=== PATIENT | female | born 1990 | race Caucasian/White ===

== ENCOUNTER 2020-09-08 19:43 | Emergency (ER) | payer OTHER, SELFPAY ==
--- NOTE | ~2020-09-08 | XR_ITS ---
EXAMINATION: XR elbow RT min 3V DATE: 09/08/2020 20:09 INDICATION: Right elbow dog bite. TECHNIQUE: 3 views of right elbow were obtained. COMPARISON: None. FINDINGS: Bone alignment is normal. No fracture. Joint spaces are well maintained. There is no elbow joint effusion. IMPRESSION: 1. No fracture or radiopaque foreign body. Reviewed, dictated and finalized at location A.
[2020-09-08 19:53] VITALS: BP 151/98; PULSE 97; RESP 16; TEMP 37; O2SAT 100
[2020-09-08] MEDS: HYDROcodone/acetaminophen (*CRX) 5-325 MG TABLET 1 TAB PO (20:02)
--- NOTE | 2020-09-08 20:59 | ED.GENADULT ---
HPI - General Adult General Chief complaint: Animal Bite Stated complaint: dog bite right arm Time Seen by Provider: 09/08/20 19:54 History of Present Illness HPI narrative: Patient is a 29-year-old female who presents to the ER with a dog bite to her right antecubital fossa. She is her 2 dogs that were fighting when she got bit. She reports her tetanus shot is up-to-date. She has full range of motion of her arm. She has no numbness or tingling. Has pain with flexion extension of her elbow. There is bruising developing. Related Data Allergies Allergy/AdvReac Type Severity Reaction Status Date / Time No Known Allergies Allergy Unknown Unverified 01/26/15 15:54 Review of Systems Musculoskeletal: Musculoskeletal: Denies arthralgias, Denies joint swelling and Denies muscle cramps Integumentary/Breasts: Comments: Bite wound to the right antecubital fossa/forearm. Neurologic: Denies focal weakness and Denies numbness PMFSH Past Medical History Medical History (Updated 09/08/20 @ 21:28 by Moose Arguelles MD) Asthma Depression Surgical History Surgical History (Updated 09/08/20 @ 21:00 by Moose Arguelles MD) No pertinent past surgical history Social History Social History (Updated 09/08/20 @ 21:00 by Moose Arguelles MD) Smoking status: Never smoker Gender identity (if verbalized by the patient): Female Exam Narrative: Exam Narrative: GENERAL: Well-appearing, well-nourished, and in no acute distress. HEAD: Normocephalic, atraumatic. CHEST: Clear to auscultation. No respiratory distress. HEART: Regular rate and rhythm. Normal peripheral pulses EXTREMITIES: Normal range of motion. Normal strength of right upper extremity. SKIN: Warm, dry, no rash. Bite wound right antecubital fossa medial aspect. 2 lacerations, one 1.5 cm in length and 0.5 cm in width, the other is 2cm x 1cm. NEURO: Alert and oriented x3. PSYCH: Normal mood and affect. Course Course Emergency Course: Wounds anesthetized irrigated. Will leave open due to nature of bite/puncture. Will give first dose antibiotic here. Discharge home. Vital Signs Vital signs: Vital Signs Temperature 98.6 F 09/08/20 19:53 Pulse Rate 97 09/08/20 19:53 Respiratory Rate 16 09/08/20 19:53 Blood Pressure 151/98 H 09/08/20 19:53 Pulse Oximetry 100 09/08/20 19:53 Temperature 98.6 F 09/08/20 19:53 Pulse Rate 97 09/08/20 19:53 Respiratory Rate 16 09/08/20 19:53 Blood Pressure 151/98 H 09/08/20 19:53 Pulse Oximetry 100 09/08/20 19:53 Medical Decision Making Vital Signs Vital Signs: Vital Signs Temperature 98.6 F 09/08/20 19:53 Pulse Rate 97 09/08/20 19:53 Respiratory Rate 16 09/08/20 19:53 Blood Pressure 151/98 H 09/08/20 19:53 Pulse Oximetry 100 09/08/20 19:53 Temperature 98.6 F 09/08/20 19:53 Pulse Rate 97 09/08/20 19:53 Respiratory Rate 16 09/08/20 19:53 Blood Pressure 151/98 H 09/08/20 19:53 Pulse Oximetry 100 09/08/20 19:53 Discharge Plan Discharge Clinical Impression: Dog bite Patient Disposition: Home, Self-Care Condition: Stable Instructions: Antibiotic Form, Animal Bite (ED) Additional Instructions: Take your full course of antibiotics. Return to the ER if your arm is red and hot, become swollen, your wound is draining pus, you have additional concerns. Prescriptions: New amoxicillin-pot clavulanate [Augmentin] 875-125 mg tablet 1 tablet PO Q12H Qty: 20 RF: 0 hydrocodone-acetaminophen 5-325 mg tablet 1 tablet PO Q6H PRN (Reason: pain) Qty: 7 RF: 0 Follow-up/Referrals: UNKNOWN,DOCTOR [Primary Care Provider] - 1 Week
[2020-09-08] MEDS: AMOXICILLIN/CLAVULANATE K 875-125 MG TAB 1 TABLET PO (21:39)
--- NOTE | 2020-09-08 21:39 | PC.NURSE ---
wound dressed with telfa and covered with coban. pt mani well.
[2020-09-08 21:49] VITALS: BP 141/85; PULSE 84; RESP 18; TEMP 36.5; O2SAT 98
== END 2020-09-08 21:50 | disposition home or self-care (01) ==
PROVIDERS: Emergency Provider Emergency Medicine
DX: S51.051A Open bite, right elbow, initial encounter (principal); W54.0XXA Bitten by dog, initial encounter; J45.909 Unspecified asthma, uncomplicated
CPT/HCPCS: 73080; 99283; A9270

== ENCOUNTER 2023-06-16 13:34 | Emergency (ER) | payer OTHER, SELFPAY ==
[2023-06-16 13:48] VITALS: BP 137/88; PULSE 54; RESP 16; TEMP 36.7; O2SAT 98
--- NOTE | 2023-06-16 13:55 | ED.NAVMDI ---
HPI - Nausea/Vomiting/Diarrhea General Chief complaint: Nausea/Vomiting/Diarrhea Stated complaint: throwing up Time Seen by Provider: 06/16/23 13:55 Source: patient Mode of arrival: ambulatory Limitations: no limitations History of Present Illness HPI Narrative: Katie is a 32-year-old female patient presenting to the clinic today with complaints of vomiting and diarrhea. She reports that she had 1 episode of diarrhea this morning. Started vomiting this morning. States that she has now dry heaving. Complaining of bilateral side pain due to the vomiting but otherwise no abdominal pain. Denies any blood in her stool. States that she vomited once yesterday due to postnasal drip. No fever or chills. Took Zofran at home without relief Related Data Home Medications Medication Instructions Recorded Confirmed albuterol sulfate 90 mcg/actuation 1 - 2 puff inhalation PRN PRN 06/16/23 06/16/23 aerosol inhaler Wheezing bupropion HCl 150 mg 24 hr tablet, 150 mg PO DAILY 06/16/23 06/16/23 extended release escitalopram oxalate 20 mg tablet 20 mg PO DAILY 06/16/23 06/16/23 methylphenidate HCl 20 mg 20 mg PO DAILY 06/16/23 06/16/23 tablet,extended release Allergies Allergy/AdvReac Type Severity Reaction Status Date / Time No Known Allergies Allergy Unknown Unverified 06/16/23 13:51 Review of Systems Review of Systems: Pertinent positives per HPI. Patient denies any fever, chills, rash, headache, visual changes, dizziness, cough, runny nose, sore throat, shortness of breath, chest pain, palpitations, constipation, or any urinary issues. [facility] Past Medical History Medical History Asthma Depression Surgical History Surgical History No pertinent past surgical history Social History Social History Smoking status: Never smoker Gender identity (if verbalized by the patient): Female Comments At the time of my signature, I reviewed and agree with the nursing past medical, surgical, social, and family history. There is no relevant family history pertinent to the patient complaint. Exam Narrative: General: Well-developed, well nourished, in no apparent distress. Head: Normocephalic, atraumatic. Cardio: Regular rate and rhythm, s1 and s2 normal, no murmur appreciated. Resp: Clear to auscultation bilaterally, no rhonchi, rales, wheezing or rubs. Abdomen: Soft, pliable, bowel sounds present in all quadrants, mild generalized tender to palpation, no organomegly, no CVAT tenderness. Course Course Emergency Course: Portions of this record may have been created with voice recognition software. Level of Care: Express Care Visit Vital Signs Vital signs: Vital Signs Temperature 36.7 C 06/16/23 13:48 Pulse Rate 54 L 06/16/23 13:48 Respiratory Rate 16 06/16/23 13:48 Blood Pressure 137/88 06/16/23 13:48 Pulse Oximetry 98 06/16/23 13:48 Oxygen Delivery Room Air 06/16/23 13:48 Temperature 36.7 C 06/16/23 13:48 Pulse Rate 54 L 06/16/23 13:48 Respiratory Rate 16 06/16/23 13:48 Blood Pressure 137/88 06/16/23 13:48 Pulse Oximetry 98 06/16/23 13:48 Oxygen Delivery Room Air 06/16/23 13:48 Vital signs reviewed MDM - Nausea/Vomiting/Diarrhea MDM Narrative Medical decision making narrative: At the time of visit patient is resting comfortably on the exam table. Patient appears to be nontoxic. Labs: COVID and influenza testing was negative in the clinic today. Urinalysis show 4+ ketones, trace of protein, and high specific gravity. No sign of infection. Medications given: Promethazine 50 mg IM Plan: Offered to send patient to the ED for further evaluation and IV fluids.-UA shows 4+ ketones, trace of protein, and a high specific gravity. Patient declined and stated she would like to go home
[2023-06-16] MEDS: PROMETHAZINE HCL 25 MG/ML AMPUL 50 MG IM (14:08)
== END 2023-06-16 14:58 | disposition home or self-care (01) ==
PROVIDERS: Emergency Provider Nurse Practitioner Family
DX: K52.9 Noninfective gastroenteritis and colitis, unspecified (principal); E86.0 Dehydration; J45.909 Unspecified asthma, uncomplicated; F32.A Depression, unspecified
CPT/HCPCS: 81003; 81025; 87426; 87804; 96372; 99213; G0463; J2550

== ENCOUNTER 2023-06-17 09:29 | Emergency (ER) | payer OTHER, SELFPAY ==
--- NOTE | ~2023-06-17 | CT_ITS ---
EXAMINATION: CT abdomen pelvis w con DATE: 06/17/2023 11:20 INDICATION: Abdominal pain. Nausea and vomiting. TECHNIQUE: Computed tomography (CT) of the abdomen and pelvis was performed with 100 L Omnipaque 350 intravenous contrast. Automated exposure control and iterative reconstruction technique were employed . The dose-length product was 1408.08 mGy-cm. COMPARISON: None. FINDINGS: The visualized portions of the lung bases are clear without pneumonia or pleural effusion. The heart size is normal. No pericardial effusion. The liver demonstrates focal steatosis adjacent to ligamentum teres. There are changes of cholecystectomy. The spleen, pancreas, adrenal glands, and ki dneys are normal. There is a 3.4 cm cyst in right ovary. There is diverticulosis of the colon without evidence of diverticulitis. The appendix is normal. There are no pathologically enlarged lymph nodes . There is no free intraperitoneal fluid. There is mild lumbar spondylosis. IMPRESSION: 1. 3.4 cm cyst in right ovary, likely a follicular cyst. Reviewed, dictated and finalized at location A. [employer]
--- NOTE | ~2023-06-17 | US_ITS ---
Pelvic ultrasound. Clinical History: Ovarian cyst Technique: Realtime transabdominal and transvaginal scanning of the pelvis was performed. Color flow Doppler and Doppler spectral analysis were performed. Findings: The uterus is anteverted. The endometrial stripe has a thickness of 3 mm. No focal mass is identified. The right ovary measures 3.7 x 3.2 x 4.1 cm. Simple right ovarian cyst measures 3.3 cm in diameter. V ascular flow present in the right ovary. The left ovary is not visualized. No significant left ovarian or adnexal mass is seen. There is no evidence of free fluid in the cul de sac. Impression: 3.3 cm simple right ovarian cyst. Reviewed, dictated and finalized at [facility]. BOSS Impression: 3.3 cm simple right ovarian cyst.
[2023-06-17 09:32] VITALS: BP 143/85; PULSE 66; RESP 14; TEMP 36.2; O2SAT 100
[2023-06-17 09:51] LABS: Basophils Percent Auto 0.2 % (0.2-1.2); Eosinophils Percent Auto 0.1 % (0-4.4); Hematocrit 40.3 % (37.0-47.0); Hemoglobin 13.2 g/dL (12.0-15.0); Immature Granulocyte Absolute 0.09 K/mm3 (0.00-0.031); Immature Granulocyte Percent A 0.5 % (0-0.5); Lymphocytes Absolute Auto 1.19 K/mm3 (0.9-3.2); Lymphocytes Percent Auto 6.1 % (18.3-44.2); Mean Corpuscular HGB Conc 32.8 g/dl (32-36); Mean Corpuscular Hemoglobin 28.1 pg (26-34); Mean Corpuscular Volume 85.7 fl (80-100); Mean Platelet Volume 9.4 fl (7.4-10.4); Monocytes Absolute Auto 0.7 K/mm3 (0.1-0.6); Monocytes Percent Auto 3.6 % (2.6-8.5); Neutrophils Absolute Auto 17.4 K/mm3 (1.3-6.7); Neutrophils Percent Auto 89.5 % (45.5-73.1); Platelet Count Result 362 k/mm3 (150-375); White Blood Count 19.4 K/mm3 (4.5-10.0)
[2023-06-17] MEDS: FAMOTIDINE 20 MG/2 ML VIAL IV PUSH (10:00)
[2023-06-17] MEDS: ONDANSETRON INJ 4 MG/2 ML VIAL IV PUSH (10:00)
[2023-06-17] MEDS: SODIUM CHLORIDE 0.9% IV 1,000 ML 999 ML IV CONT ×2 (10:01→11:32)
--- NOTE | 2023-06-17 10:02 | ED.NAVMDI ---
HPI - Nausea/Vomiting/Diarrhea General Chief complaint: Nausea/Vomiting/Diarrhea Stated complaint: Dehydration Time Seen by Provider: 06/17/23 09:34 Source: patient Mode of arrival: ambulatory Limitations: no limitations History of Present Illness HPI Narrative: This is a 32-year-old female that presents to the emergency department for vomiting and diarrhea. Ongoing since yesterday. She was seen at Urgent Care given a dose of nausea medication. She has continued to have persistent vomiting which prompted her to be seen today for possible dehydration. Reports some discomfort on the sides of her abdomen from vomiting. Denies fevers, or dysuria. Related Data Home Medications Medication Instructions Recorded Confirmed albuterol sulfate 90 mcg/actuation 1 - 2 puff inhalation PRN PRN 06/16/23 06/16/23 aerosol inhaler Wheezing bupropion HCl 150 mg 24 hr tablet, 150 mg PO DAILY 06/16/23 06/16/23 extended release escitalopram oxalate 20 mg tablet 20 mg PO DAILY 06/16/23 06/16/23 methylphenidate HCl 20 mg 20 mg PO DAILY 06/16/23 06/16/23 tablet,extended release Allergies Allergy/AdvReac Type Severity Reaction Status Date / Time No Known Allergies Allergy Unknown Unverified 06/16/23 13:51 Review of Systems Review of Systems: CONSTITUTIONAL: Denies fever GASTROINTESTINAL: Reports abdominal pain, nausea, vomiting, and diarrhea. GENITOURINARY: Denies dysuria All systems reviewed & are unremarkable except as noted in HPI and below PMFSH Past Medical History Medical History Asthma Depression Surgical History Surgical History No pertinent past surgical history Social History Social History Smoking status: Never smoker Gender identity (if verbalized by the patient): Female Exam Narrative: GENERAL: Well-appearing, well-nourished, and in no acute distress. HEAD: Normocephalic, atraumatic. EYES: EOMI. ENT: Nares clear, no rhinorrhea or epistaxis. Mucous membranes dry CHEST: Clear to auscultation. No respiratory distress. No wheezes rales or rhonchi HEART: Regular rate and rhythm. No murmur heard. Normal peripheral pulses. ABDOMEN: Soft, nontender, nondistended, normal active bowel sounds. EXTREMITIES: Normal range of motion. No edema. SKIN: Warm, dry, no rash. NEURO: No focal deficits. Alert and oriented x3. PSYCH: Normal mood and affect Course Course Emergency Course: Patient updated on workup and agrees with plan of care Vital Signs Vital signs: Vital Signs Temperature 97.1 F L 06/17/23 09:32 Pulse Rate 66 06/17/23 09:32 Respiratory Rate 14 06/17/23 09:32 Blood Pressure 143/85 H 06/17/23 09:32 Pulse Oximetry 100 06/17/23 09:32 Temperature 97.1 F L 06/17/23 09:32 Pulse Rate 64 06/17/23 15:45 Respiratory Rate 20 06/17/23 15:45 Blood Pressure 122/56 L 06/17/23 15:45 Pulse Oximetry 100 06/17/23 15:45 MDM - Nausea/Vomiting/Diarrhea MDM Narrative Medical decision making narrative: Patient presents to the emergency department for nausea and vomiting ongoing since yesterday. She is afebrile and nontoxic appearing. Her vitals are stable. CBC with leukocytosis to 19.4. Metabolic panel without concerning findings. Lipase is normal. UA with 11-20 white blood cells, also moderate squamous epithelial cells. Patient is asymptomatic. I believe this was a contaminated catch. This will be sent for culture. test is negative. CT abdomen and pelvis shows a right ovarian cyst. Pelvic ultrasound shows that this is a simple cyst. She has normal vascular flow in ovary. Patient and family were updated on her workup. She reports feeling well after IV fluid hydration and antiemetics. Reports he is ready for discharge. She is to follow up with primary provider. She was given warn
[2023-06-17 10:04] LABS: Alanine Aminotransferase 22 U/L (6-35); Albumin Level 4.4 g/dL (3.5-5.1); Alkaline Phosphatase 76 U/L (38-126); Anion Gap 10 mmol/L (8-16); Aspartate Amino Transferase 25 U/L (14-36); Bilirubin,Total 0.7 mg/dL (0.2-1.3); Blood Urea Nitrogen 13 mg/dL (7-17); Calcium 9.5 mg/dL (8.4-10.2); Carbon Dioxide 23 mmol/L (22-30); Chloride 106 mmol/L (98-107); Estimated Glomerular Filt Rate > 60; Glucose 125 mg/dL (65-110); Lipase 71 U/L (23-300); Potassium 3.7 mmol/L (3.4-5.0); Sodium 139 mmol/L (137-145)
[2023-06-17 10:09] LABS: Appearance Urine Cloudy (Clear); Bacteria Urine 2+ /hpf; Bilirubin Urine 2+ (Negative); Blood Urine Negative (Negative); Color Urine Dark Yellow (Yellow); Glucose Urine UA Negative (Negative); Ketones Urine 3+ mg/dL (Negative); Leukocyte Esterase Ur Trace LEU/UL (Negative); Need Manual Microscopic Reviewed; Nitrate Urine Negative (Negative); Non Pathogenic Casts 0-2; Protein Urine 2+ mg/dL (Negative); Squamous Epithelial Cell Urine Moderate /hpf (Few)
[2023-06-17 10:10] LABS: Add Urine Microscopic? YES; RBC Urine 0-2 /hpf (0-2); Specific Grav Ur 1.038 (1.001-1.035)
[2023-06-17] MEDS: KETOROLAC 15 MG/ML VIAL (*BKC) IV PUSH (11:32)
[2023-06-17] MEDS: METOCLOPRAMIDE HCL INJ 10 MG/2 ML VIAL IV PUSH (11:33)
[2023-06-17] MEDS: diphenhydrAMINE HCl INJ 50 MG/ML VIAL 25 MG IV PUSH (11:35)
[2023-06-17 15:45] VITALS: BP 122/56; PULSE 64; RESP 20; O2SAT 100
== END 2023-06-17 16:20 | disposition home or self-care (01) ==
PROVIDERS: Emergency Provider Physician Assistant
DX: N83.291 Other ovarian cyst, right side (principal); R82.81 Pyuria; R11.2 Nausea with vomiting, unspecified; J45.909 Unspecified asthma, uncomplicated; F32.A Depression, unspecified
CPT/HCPCS: 36415; 74177; 76830; 76856; 80053; 81001; 81025; 83690; 85025; 87086; 96361; 96374; 96375; 99284; J1200; J1885; J2405; J2765; J7030; Q9967

== ENCOUNTER 2024-06-28 17:20 | Emergency (ER) | payer OTHER, SELFPAY ==
--- NOTE | ~2024-06-28 | XR_ITS ---
EXAMINATION: XR chest 1V portable DATE: 06/28/2024 20:46 INDICATION: Upper respiratory infection. TECHNIQUE: A single frontal view of the chest was obtained. COMPARISON: CT abdomen and pelvis 06/17/2023 FINDINGS: There is no pneumonia, pleural effusion, or pneumothorax. The heart size is normal. IMPRESSION: 1. No acute cardiopulmonary disease. Reviewed, dictated and finalized at location A. [employer]
[2024-06-28 17:23] VITALS: BP 167/99; PULSE 61; RESP 20; TEMP 37.3; O2SAT 99
--- OUTSIDE RECORDS SUMMARY | 2024-06-28 17:23 | XMS_ITS ---
Author Organization Unknown Medications Medication Instructions Effective Dates (start - stop) Status amoxicillin 875 MG / clavula marcos 125 MG Oral Tablet - Completed 8 HR methylphenidate hydroch loride 20 MG Extended Release Oral Tablet - Co mpleted 8 HR methylphenidate hydroch loride 20 MG Extended Release Oral Tablet - Co mpleted 8 HR methylphenidate hydroch loride 20 MG Extended Release Oral Tablet - Co mpleted [id number] 200 ACTUAT albuter ol 0.09 MG/ACTUAT Metered Dose Inhaler - Completed methylphenidate hydrochlorid e 5 MG Oral Tablet - Completed methylphenidate hydrochlorid e 5 MG Oral Tablet - Completed 8 HR methylphenidate hydroch loride 20 MG Extended Release Oral Tablet - Co mpleted alprazolam 0.25 MG Oral Tablet 2023-04-07 T00:00:00Z - Completed 24 HR bupropion hydrochlorid e 150 MG Extended Release Oral Tablet - Compl eted benzonatate 100 MG Oral Capsule 9T00:00:00Z - Completed 24 HR bupropion hydrochlorid e 150 MG Extended Release Oral Tablet - Compl eted 8 HR methylphenidate hydroch loride 20 MG Extended Release Oral Tablet - Co mpleted 24 HR bupropion hydrochlorid e 300 MG Extended Release Oral Tablet - Compl eted 8 HR methylphenidate hydroch loride 20 MG Extended Release Oral Tablet - Co mpleted - - Compl eted escitalopram 20 MG Oral Tablet 2023-06-10 T00:00:00Z - Completed escitalopram 20 MG Oral Tablet 2023-07-11 T00:00:00Z - Completed escitalopram 20 MG Oral Tablet 2022-12-12 T00:00:00Z - Completed escitalopram 20 MG Oral Tablet 2023-03-13 T00:00:00Z - Completed - - Compl eted 30/70 Release 24 HR methylphenidate hydrochloride 20 MG Extended Release Oral Capsule - Comp leted 24 HR bupropion hydrochlorid e 150 MG Extended Release Oral Tablet - Compl eted 8 HR methylphenidate hydroch loride 20 MG Extended Release Oral Tablet - Co mpleted ondansetron 4 MG Disintegrat ing Oral Tablet - Completed methylphenidate hydrochlorid e 5 MG Oral Tablet - Completed ondansetron 4 MG Disintegrat ing Oral Tablet - Completed molnupiravir 200 MG Oral Capsule 00:00:00Z - Completed alprazolam 0.25 MG Oral Tablet 2022-12-21 T00:00:00Z - Completed escitalopram 20 MG Oral Tablet 2023-07-11 T00:00:00Z - Completed - - Compl eted - - Compl eted alprazolam 0.25 MG Oral Tablet 2023-09-03 T00:00:00Z - Completed ondansetron 4 MG Oral Tablet [id number] 0:00:00Z - Completed [id number] 200 ACTUAT albuter ol 0.09 MG/ACTUAT Metered Dose Inhaler - Completed methylphenidate hydrochlorid e 5 MG Oral Tablet - Completed 8 HR methylphenidate hydroch loride 20 MG Extended Release Oral Tablet - Co mpleted escitalopram 20 MG Oral Tablet 2023-11-08 T00:00:00Z - Completed 8 HR methylphenidate hydroch loride 20 MG Extended Release Oral Tablet - Co mpleted ondansetron 4 MG Disintegrat ing Oral Tablet - Completed methylphenidate hydrochlorid e 5 MG Oral Tablet - Completed ondansetron 4 MG Disintegrat ing Oral Tablet - Completed [id number] 200 ACTUAT albuter ol 0.09 MG/ACTUAT Metered Dose Inhaler - Completed Patient Care team information Name Category Status Period Participants - - Proposed period not known -
--- OUTSIDE RECORDS SUMMARY | 2024-06-28 17:23 | XMS_ITS | Clinical Summary ---
Author Organization [facility] Address [address] [place] [address] Phone Care Team Providers Care Set Up Machinist Name Role Phone LIANG GILLESPIE DO Primary Care Provider [phone] Reason for Visit and Chief Complaint The Chief Complaint is: Patient is here for a medication check Problems Includes: Problems addressed during this encounter and other active Problems Current Visit Onset Date Resolved Date Provider Jennifer story Status Anxiety Disorder Mixed 07/28/2022 LIANG HASSAN DO Active Last Documented On 3 8:10PM ; [facility] 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 05/05/2020 LIANG GILLESPIE DO Active Last Documented On 0 1:48PM ; [facility] Past Visits Onset Date Resolved Date Provider Condition Status Adhd, 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 LIANG GILLESPIE DO Active Last Documented On 2 10:05PM ; [facility] 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 note free text]. - Last Documented On 08/26/2023 7:44AM ; [facility] Continue present medications, call for refills. She was advised to follow a healthy diet. She was advised to drink plenty of water and stay hydrated. - Last Documented On 08/26/2023 7:44AM ; [facility] Assessments Includes: Assessments from this encounter Findings - Moderate recurrent major depression with anxiety [F41.9 - Anxiety disorder, unspecified] - Last Documented On 08/26/2023 7:44AM ; [facility] - Mixed anxiety disorder [F41.3 - Other mixed anxiety disorders] - Last Documented On 08/26/2023 7:44AM ; [facility] Medical Equipment - Implanted Devices Includes: Current Devices No Medical Equipment Recorded Medications Includes: Medications discussed during this encounter and other current Medications Current Medications (continue as prescribed) Escitalopram Oxalate 20 MG Oral Tablet 11/02/2023 Provider: LIANG GILLESPIE DO Diagnosis: Major depressive disorder, single episode, unspecified TAKE 1 TABLET BY MOUTH EVERY DAY Last Documented On 11/02/2023 8:41AM By LIANG GILLESPIE DO ; [facility] buPROPion HCl ER (XL) 300 MG Oral Tablet Extended Release 24 Hour 10/25/2023 Provider: LIANG GILLESPIE DO Diagnosis: Anxiety disorder , unspecified 1 TABLET DAILY Last Documented On 10/25/2023 12:36PM By LIANG GILLESPIE DO ; [facility] Methylphenidate HCl ER 20 MG Oral Tablet Extended Release 10/05/2023 Provider: LIANG BORJA DO Diagnosis: Attn-defct hyper activity disorder, predom inattentive type One tablet daily am Last Documented On 10/05/2023 8:25AM By LIANG GILLESPIE DO ; [facility] Ondansetron 4 MG Oral Tablet Disintegrating 09/17/2023 Provider: LIANG GILLESPIE DO Diagnosis: Nausea 1 every 4 - 6 hours as needed nausea Last Documented On 09/17/2023 6:46PM By LIANG GILLESPIE DO ; [facility] ALPRAZolam 0.25 MG Oral Tablet 08/31/2023 Provider: TIFF DEAL Diagnosis: Anxiety disorder , unspecified TAKE 1/4-1 TABLET BY MOUTH E VERY 8-12 HOURS NEEDED FOR ANXIETY. MUST LAST AT LEAST 30 DAYS Last Documented On 1:24PM By Tiff SHELTON ; [facility] buPROPion HCl ER (XL) 150 MG Oral Tablet Extended Release 24 Hour 07/11/2023 Provider: LIANG GILLESPIE DO Diagnosis: Anxiety disorder , unspecified TAKE 1 TABLET BY MOUTH EVERY DAY IN THE MORNING Last Documented On 07/11/2023 9:37AM By LIANG GILLESPIE DO ; [facility] Albuterol Sulfate HFA 108 (9 0 Base) MCG/ACT Inhalation Aerosol Solution 07/11/2023 Provider: LIANG MCFARLANE DO Diagnosis: COVID-19 INHALE 1-2 PUFFS INTO THE STACIA NGS EVERY 4-12 HRS NEEDED FOR WHEEZE Last Documented On 07/11/2023 9:37AM By LIANG GILLESPIE DO ; [facility] Methylphenidate HCl 5 MG Ora l Tablet 04/11/2023 Provider: LIANG GILLESPIE DO Diagnosis: Attn-defct hyper activity disorder, predom inattentive type 1 pm work days Last Documented On 04/11/2023 10:34AM By LIANG GILLESPIE DO ; [facility] Triamcinolone Acetonide 0.1% External Cream 11/29/2022 Provider: TIFF TURNER [facility] Diagnosis: Dermatitis, unsp ecified apply to affected area 2 omega es daily. do not use for longer than 14 days in a row. Last Documented On 10:38AM By Tiff Turner [facility] ; [facility] Nexplanon 68 MG Subcutaneous Implant 01/06/2022 Prov ider: Diagnosis: Last Documented On 03/07/2022 2:42PM By Lilliana GALINDO ; [facility] Flonase 50 MCG/ACT Nasal Suspension 04/09/2020 Provi harris: Diagnosis: Last Documented On 04/09/2020 10:25AM By Concepción GALINDO ; [facility] ZyrTEC Allergy 10 MG Oral Tablet 04/09/2020 Provider : Diagnosis: Last Documented On 04/09/2020 10:25AM By Concepción GALINDO ; [facility] EpiPen 2-Cory 0.3MG/0.3ML Injection Solution Auto-injec tor 12/19/2017 Provider: Diagnosis: Given to her by the ER Last Documented On 12/19/2017 10:12AM By PETER GALINDO ; [facility] Past Medications on file Benzonatate 100 MG Oral Capsule 04/13/2023 - 3 Provider: LIANG GILLESPIE DO Diagnosis: COVID-19 as directed 1-2 q 6 hours prn cough Last Documented On 04/13/2023 2:28PM By LIANG GILLESPIE DO ; [facility] Lagevrio 200 MG Oral Capsule 03/19/2023 - 03/24/2023 P rovider: LIANG GILLESPIE DO Diagnosis: COVID-19 4 po bid x 5 Last Documented On 03/19/2023 12:59PM By LIANG GILLESPIE DO ; [facility] Medications Administered Includes: Administered Medications from this encounter No Administered Medications Recorded Vital Signs Includes: Vital Signs from this encounter Vital Name 08/24/2023 10:54A Blood Pressure Sitting L 122/80 Pulse Rate-Sitting (bpm) 71 Respiration Rate (breaths/min) 20 Height (in) 61.5 Weight (lb) 244 Body Mass Index 45.4 Body Surface Area (m2) 2.1 Oxygen Saturation (%) 97 Last Documented: On 08/24/2023 10:56A M ; [facility] Results Includes: Results discussed during this encounter No Results Recorded For Specified Dates History of Present Illness Includes: History of Present Illness from this encounter NILSA GARCÍA is a 32 year old female. - Allergy list reviewed - Medication list reviewed - No systemic symptoms - Not feeling tired or poorly - No head symptoms - No neck symptoms - No eye symptoms - No otolaryngeal symptoms - No cardiovascular symptoms - No pulmonary symptoms - No gastrointestinal symptoms - No genitourinary symptoms - No musculoskeletal symptoms - No decrease in concentrating ability - No anxiety - No depression - No initial insomnia - No middle-night awakening - Not thinking about suicide - No homicidal thoughts - No skin symptoms The patient is a pleasant 32-year-old female who presents today for a 1-month follow-up visit. She is feeling fine today. She reports good moods and sound sleep patterns. With respect to her energy, it is better than prior. She has been taking bupropion XL 300 mg once daily and escitalopram 20 mg once daily and has been tolerating them well. She denies any side effects from medicines. She denies having thoughts of hurting herself or others. She denies any crying spells or angry spells. For ADHD, she has been taking Ritalin 20 mg once daily at AM and 5 mg at PM on workdays. She reports that the current dose of medication is helping her focus. She denies any vision changes, headaches, dizziness, or falls. She denies any chest pain, palpitations, shortness of breath, changes in bowel movements such as black or tarry stools, or bladder problems. Social History Description Last Updated 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 08/24/2023 Last Documented On 4 7:44AM ; [facility] Not recovering from substance abuse 08/05 Last Documented On 4 7:44AM ; [facility] Tobacco non-user 07/25/2022 Last Documented On 4 10:53AM ; [facility] Using marijuana 02/08/2021 Last Documented On 4 10:53AM ; [facility] Smoking Status Unknown Procedures and Surgical History Includes: Procedures from this encounter Procedures Code Diagnosis Performing Provider Service L ocation Service Date dietary regime Last Documented On 4 11:08AM ; [facility] plan of care reviewed and agreed to Last Documented On 4 11:08AM ; [facility] plan of care reviewed and agreed to by t he patient Last Documented On 4 11:08AM ; [facility] use of tobacco assessment performed 1000F Last Documented On 4 10:54AM ; [facility] review of medications documented 1160F Last Documented On 4 10:54AM ; [facility] Pt encouraged to be compliant with curre nt treatment Last Documented On 4 11:08AM ; [facility] Discussed Exercise Last Documented On 4 11:08AM ; [facility] instructed to monitor salt intake Last Documented On 4 11:08AM ; [facility] Reviewed Blood Pressures Last Documented On 4 11:08AM ; [facility] Medical History Includes: Medical History addressed during this encounter Description Last Updated LMP: nexplanon 07/25/2022 Last Documented On 4 10:53AM ; [facility] Surgery 2000- KNEE SURGERY 11/23/2008 Last Documented On 4 10:53AM ; [facility] Family History Includes: Family History addressed during this encounter Description Last Updated Family history of asthma 09/13/2021 Last Documented On 4 10:53AM ; [facility] Family history of diabetes mellitus 09/04 Last Documented On 4 10:53AM ; [facility] Family history of systemic hypertension 09/13/2021 Last Documented On 4 10:53AM ; [facility] Family history reviewed - unchanged sinc e last visit 01/03/2019 Last Documented On 4 10:53AM ; [facility] Father HIGH BLOOD PRESSURE 11/23/2008 Last Documented On 4 10:53AM ; [facility] Review of Systems Includes: Review of Systems from this encounter Systemic: No fever, no night sweats, and no edema. Head: No headache. Neck: No neck pain. Eyes: No vision problems. Otolaryngeal: No nasal discharge and no sore throat. Cardiovascular: No chest pain or discomfort and no palpitations. Pulmonary: No dyspnea and not expressed as feeling short of breath. Gastrointestinal: No nausea, no vomiting, and no melena. Genitourinary: No dysuria. Musculoskeletal: No localized joint pain. Neurological: No dizziness, no lightheadedness, and no memory lapses or loss. Psychological: No high irritability, no emotional hypersensitivity, and no sleep disturbances. No change in thought patterns and no lack of balance between leisure activities and work. Skin: No rash. Mental Status Includes: Mental Status from this encounter Description Cognitive functioning was no rmal Oriented to time, place, and person Thought processes were not i mpaired No memory lapses or loss No anxiety No homicidal thoughts Not thinking about suicide The thought content revealed no impairment Moderate recurrent major dep ression with anxiety Functional Status Includes: Functional Status from this encounter No Functional Status Recorded Physical Exam Includes: Physical Exam from this encounter Allergies Includes: Active Allergies No Known Allergies Encounters Encounter Provider Location Date Check-In Time Check-Out Time Diagnosis CHECK UP LIANG GILLESPIE DO [facility] 08/24/19 24 10:39AM 11:08AM Anxiety Disorder Mixed,Major Depression Recurrent Moderate with Anxiety Insurance Includes: Active Insurance Policies Plan Name Member ID Group # Subscriber Relationship Effect palmer Dates 1 - [employer] [id number] BRENDA GARCÍA Self 11/04/2020 - Unknown Clinical Notes Includes: Clinical Notes from this encounter * Progress note Date Encounter Last Documented by 08/24/2023 CHECK UP Last documented on 08/26/2023; 7:44 AM, LIAGN GILLESPIE DO; [facility] Active Problems & Conditions - 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 History of Present Illness BRENDA GARCÍA is a 32 year old female. - Allergy list reviewed - Medication list reviewed - No systemic symptoms - Not feeling tired or poorly - No head symptoms - No neck symptoms - No eye symptoms - No otolaryngeal symptoms - No cardiovascular symptoms - No pulmonary symptoms - No gastrointestinal symptoms - No genitourinary symptoms - No musculoskeletal symptoms - No decrease in concentrating ability - No anxiety - No depression - No initial insomnia - No middle-night awakening - Not thinking about suicide - No homicidal thoughts - No skin symptoms The patient is a pleasant 32-year-old female who presents today for a 1-month follow-up visit. She is feeling fine today. She reports good moods and sound sleep patterns. With respect to her energy, it is better than prior. She has been taking bupropion XL 300 mg once daily and escitalopram 20 mg once daily and has been tolerating them well. She denies any side effects from medicines. She denies having thoughts of hurting herself or others. She denies any crying spells or angry spells. For ADHD, she has been taking Ritalin 20 mg once daily at AM and 5 mg at PM on workdays. She reports that the current dose of medication is helping her focus. She denies any vision changes, headaches, dizziness, or falls. She denies any chest pain, palpitations, shortness of breath, changes in bowel movements such as black or tarry stools, or bladder problems. Current Medication - Albuterol Sulfate HFA 108 (90 Base) MCG/ACT Inhalation Aerosol Solution INHALE 1-2 PUFFS INTO THE LUNGS EVERY 4-12 HRS NEEDED FOR WHEEZE, 30 days, 2 refills - ALPRAZolam 0.25 MG Oral Tablet TAKE 1/4-1 TABLET BY MOUTH EVERY 8-12 HOURS NEEDED FOR ANXIETY. MUST LAST AT LEAST 30 DAYS, 30 days, 0 refills - buPROPion HCl ER (XL) 150 MG Oral Tablet Extended Release 24 Hour TAKE 1 TABLET BY MOUTH EVERY DAY IN THE MORNING, 30 days, 0 refills - buPROPion HCl ER (XL) 300 MG Oral Tablet Extended Release 24 Hour One tablet daily, 90 days, 0 refills - EpiPen 2-Cory 0.3MG/0.3ML Injection Solution Auto-injector 0.3 MG/0.3ML as directed Given to her by the ER, 0 days, 0 refills - Escitalopram Oxalate 20 MG Oral Tablet TAKE 1 TABLET BY MOUTH EVERY DAY, 90 days, 0 refills - Flonase 50 MCG/ACT Nasal Suspension 0 days, 0 refills - Methylphenidate HCl 5 MG Oral Tablet 1 pm work days, 30 days, 0 refills - Methylphenidate HCl ER 20 MG Oral Tablet Extended Release One tablet daily am, 30 days, 0 refills - Nexplanon 68 MG Subcutaneous Implant 0 days, 0 refills - Ondansetron 4 MG Oral Tablet Disintegrating 1 every 4 - 6 hours as needed nausea, 30 days, 0 refills - Triamcinolone Acetonide 0.1% External Cream apply to affected area 2 times daily. do not use for longer than 14 days in a row., 14 days, 0 refills - ZyrTEC Allergy 10 MG Oral Tablet 0 days, 0 refills Past Medical/Surgical History Reported: Surgery 2000- KNEE SURGERY. LMP: nexplanon. Social History Tobacco use: Tobacco non-user. Alcohol: 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. Drug Use: Using marijuana. Not recovering from substance abuse. Allergies - No Known Allergies Family History Father HIGH BLOOD PRESSURE Family history reviewed - unchanged since last visit Systemic hypertension Asthma Diabetes mellitus Review Of Systems Systemic: No fever, no night sweats, and no edema. Head: No headache. Neck: No neck pain. Eyes: No vision problems. Otolaryngeal: No nasal discharge and no sore throat. Cardiovascular: No chest pain or discomfort and no palpitations. Pulmonary: No dyspnea and not expressed as feeling short of breath. Gastrointestinal: No nausea, no vomiting, and no melena. Genitourinary: No dysuria. Musculoskeletal: No localized joint pain. Neurological: No dizziness, no lightheadedness, and no memory lapses or loss. Psychological: No high irritability, no emotional hypersensitivity, and no sleep disturbances. No change in thought patterns and no lack of balance between leisure activities and work. Skin: No rash. Physical Findings - Vitals taken 08/24/2023 10:54 am BP-Sitting L 122/80 mmHg Pulse Rate-Sitting 71 bpm Respiration Rate 20 per min Height 61.5 in Weight 244 lbs Body Mass Index 45.4 kg/m2 Oxygen Saturation 97 % General Appearance: - Well-appearing. - Alert. - In no acute distress. Neck: Suppleness: - Neck demonstrated no decrease in suppleness. Thyroid: - Showed no abnormalities. Cervical Mass: - No cervical mass was seen. Eyes: General/bilateral: Extraocular Movements: - Normal. Pupils: - PERRLA. Optic Disc: - Normal. Retina: - Fundoscopic exam was normal. Ears: General/bilateral: External Auditory Canal: - External auditory meatus normal. Tympanic Membrane: - Normal. Nose: General/bilateral: Discharge: - No nasal discharge. Sinus Tenderness: - No sinus tenderness. Pharynx: Oropharynx: - Normal. Chest: - No thoracic asymmetry was noted. Lungs: - Normal. - Normal breath sounds/voice sounds. - No wheezing was heard. - No rhonchi were heard. - No rales/crackles were heard. Cardiovascular: Heart Rate And Rhythm: - Normal. Heart Sounds: - Normal. Murmurs: - No murmurs were heard. Carotid Arteries: - No bruit in the carotid artery. Arterial Pulses: - No bruit in the femoral artery. Edema: - Not present. Back: - Normal. - No costovertebral angle tenderness. Abdomen: Auscultation: - Bowel sounds were normal. - A bruit was not heard in the abdomen. Palpation: - Abdominal non-tender. - No mass was palpated in the abdomen. Liver: - Not enlarged. Spleen: - Not enlarged. Musculoskeletal System: General/bilateral: - Musculoskeletal system: normal. Cervical Spine: General/bilateral: - Cervical lymph nodes were not tender on palpation. Lower Leg: General/bilateral: - A positive Saskia's sign was not elicited. - Garth Sign was negative. Neurological: - Cognitive functioning was normal. - Oriented to time, place, and person. Cranial Nerves: - Normal. Sensation: - No sensory exam abnormalities were noted. Motor: - No tremor was seen. Reflexes: - Deep tendon reflexes were normal. Psychiatric: Appearance: - Normal. Demonstrated Behavior: - Behavior demonstrated no abnormalities. Attitude: - Not abnormal. Mood: - Euthymic. Affect: - Normal. Thought Processes: - Not impaired. Thought Content: - Revealed no impairment. Skin: - General appearance was normal. - Color and pigmentation were normal. - No skin lesions. - No rash. Assessment - Moderate recurrent major depression with anxiety [F41.9 - Anxiety disorder, unspecified] - Mixed anxiety disorder [F41.3 - Other mixed anxiety disorders] Therapy - Reviewed Blood Pressures. - Dietary regime modified electrolyte levels low in sodium content instructed to monitor salt intake. - Discussed Exercise. - Pt encouraged to be compliant with current treatment. - Plan of care reviewed and agreed to by the patient. Counseling/Education - Reduce caffeine intake Discussed discussion [Use for free text]. >20 MIN> 50% Her blood pressure has been within normal limits. Her weight is up 3 pounds since the last visit. Plan StartCited - Other Follow-up FOLLOW UP IN 3 MONTHS. EndCited - Continue current medication - Follow-up visit - Patient to call if problem develops PLAN [Use for s.o.a.p. note free text]. Continue present medications, call for refills. She was advised to follow a healthy diet. She was advised to drink plenty of water and stay hydrated. Other Johann Blandon, scribing the following service on behalf of Dr. Liang Gillespie, D.O. Practice Management Use of tobacco assessment performed Review of medications documented.
--- OUTSIDE RECORDS SUMMARY | 2024-06-28 17:24 | XMS_ITS ---
Care Plan - [facility] Created on: June 28, 2024 BRENDA GARCÍA : 1990 Sex: Female Author Organization [facility] Address [address] [place] [address] Phone Care Team Providers Care Summer Sessions Director Name Role Phone LIANG ALMANZA DO Primary Care Provider [phone]
--- OUTSIDE RECORDS SUMMARY | 2024-06-28 17:24 | XMS_ITS | Referral Summary ---
Author Organization [facility] [place] [address] Address [address] [place] [address] Care Team Providers Care Field Sales Engineer Name Role Phone Ravindra Gillespie DO Primary Care Provider [phone] Allergies Active Allergy Reactions Criticality Noted Date Comments Adhesive Hives Medium 03/08/2020 Pt has had anaphylactic reaction in the past Medications fluticasone propionate (FLONASE) 50 mcg/actuation nasal spray Administer 1 spray into each nostril daily Active albuterol HFA (ProAir HFA) 90 mcg/actuation inhalerIndications :Bronchitis Inhale 2 puffs every 4 (four) hours as needed for wheezing or shortness of breath 8.5 g 0 Active etonogestreL (NEXPLANON) 68 mg implantIndications : Contraception 1 each (68 mg total) by subdermal route 9 Active ALPRAZolam (XANAX) 0.25 mg tablet Take 0.5 tablets (0.125 mg total) by mouth 4 Active buPROPion XL (WELLBUTRIN XL) 300 mg 24 hr tablet Take 1 tablet (300 mg total) by mouth daily 4 Active buPROPion SR (Wellbutrin SR) 200 mg 12 hr tablet Active escitalopram (LEXAPRO) 20 mg tablet Take 1 tablet (20 mg total) by mouth 4 Active ketorolac (TORADOL) 10 mg tablet TAKE 1 TABLET BY MOUTH 4 TIMES A DAY NEEDED FOR PAIN X 5 DAYS 4 Active methylphenidate ER (METADATE ER) 20 mg CR tablet Take 1 tablet (20 mg total) by mouth 4 Active methylphenidate CD (METADATE CD) 20 mg CR capsule Active methylphenidate HCl (RITALIN) 5 mg tablet Take 1 tablet (5 mg total) by mouth daily 4 Active ondansetron ODT (ZOFRAN-ODT) 4 mg disintegrating tablet Take 1 tablet (4 mg total) by mouth 4 Active benzonatate (TESSALON) 200 mg capsuleIndications :Acute non-recurrent pansinusitis Take 1 capsule (200 mg total) by mouth 3 (three) times a day as needed for cough 30 capsule 4 Active Active Problems Problem Noted Date Diagnosed Date Vomiting 09/28/2023 Acute frontal sinusitis 05/09/2015 Overview (08/10/2016): Acute frontal sinusitis, recurrence not specified Resolved Problems Problem Noted Date Diagnosed Date Resolved Date Gallstones 12/24/2019 03/15/2020 Overview (12/24/2019): Added automatically from request for surgery [id number] Social History Tobacco Use Types Packs/Day Years Used Date Smoking Tobacco: Never Cigarettes Smokeless Tobacco: Never Tobacco Cessation:Counseling Given: Not Answered Alcohol Use Standard Drinks/Week Comments Yes 0 (1 standard drink = 0.6 oz pur e alcohol) Rarely Comments No Sex and Gender Information Value Date Recorded Sex Assigned at Not on file 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 Gender Identity Not on file Sexual Orientation Not on file Last Filed Vital Signs Vital Sign Reading Time Taken Comments Blood Pressure 120/90 01/17/2024 2:53 PM CDT Pulse 104 01/17/2024 2:53 PM CDT Temperature 36.8 C (98.3 F) 01/17/2024 2:53 PM CDT Respiratory Rate 22 01/17/2024 2:53 PM CDT Oxygen Saturation 98% 01/17/2024 2:53 PM CDT Inhaled Oxygen Concentration - - Weight 108.9 kg (240 lb) 01/17/2024 2:53 PM CDT Height 157.5 cm (5' 2 ) 01/17/2024 2:53 PM CDT Body Mass Index 43.9 01/17/2024 2:53 PM CDT Plan of Treatment Not on file Insurance [facility] [id number] Member Subscriber Plan / Payer (Ef fective 2023-Present) Name:Katie Hinds Abiel Member ID:[id number] Relation to Subscriber:Self Name:Katie Hinds Subscriber ID:[id number] Payer ID:[id number] Type:[employer] HMO/PPO Address: [address] [place] [phone] Care Teams Field Sales Engineer Relationship Specialty Start Date End Date Ravindra Gillespie DO [address] [place] [id number] PCP - General Family Practice 03/15/20
--- OUTSIDE RECORDS SUMMARY | 2024-06-28 17:24 | XMS_ITS | Continuity of Care Document ---
Author Organization [facility]. If a dditional information is needed, contact Health Information Management at [phone] Address [address] [place] [phone] Phone Care Team Providers Care Husbandry Technician Name Role Phone Unavailable Unavailable Unavailable Unavailable Unavailable Unavailable Unavailable Unavailable Unavailable Unavailable Unavailable Unavailable Unavailable Unavailable Unavailable Unavailable Unavailable Unavailable Problems Vomiting Onset:28-Sep-2023 Katy Francisco NP Allergies and Adverse Reactions No Known Drug Allergies(Wilber rgy) Onset: 28-Sep-2023 Medications ondansetron 2 MG/ML Injectable Solution [Zofran];4 MILLIGRAM X1ED Quantity:1 Zully Solis DO Start:26-Fji-2886Ici:28-Sep-2023 Comments:[id number] sodium chloride 9 MG/ML Injectable Solution;[id number] Rileyambrocio Solis DO Start:89-Zpa-8153Klq:28-Sep-2023 Comments:[id number] haloperidol 5 MG/ML Injectable Solution;2 MILLIGRAM X1ED Quantity:1 Zully Solis DO Start:54-Lhu-7429Zbk:28-Sep-2023 Comments:[id number] Administration Instructions: Max INITIAL IV dose: 5 mg ED/ICU2 mg all other areas Max MAINTENANCE IV dose: 20 mg ED/ICU5 mg all other areas ondansetron 4 MG Disintegrating Oral Tablet;4 MILLIGRAM PO Q8HR Start:28-Sep-2023 Comments:4 MG PO Q8HR escitalopram 20 MG Oral Tablet;20 MILLIGRAM PO DAILY Start:28-Sep-2023 Comments:20 MG PO DAILY WELLBUTRIN XL;300 MILLIGRAM PO DAILY Start:28-Sep-2023 Comments:300 MG PO DAILY 8 HR methylphenidate hydrochloride 20 MG Extended Release Oral Tablet;20 MILLIGRAM PO DAILY Start:28-Sep-2023 Comments:20 MG PO DAILY ALPRAZolam 0.25 MG Oral Tablet;0.125 MILLIGRAM PO BEDTIME Start:28-Sep-2023 Comments:0.125 MG PO BEDTIME [id number] 200 ACTUAT albuterol 0.09 MG/ACTUAT Metered Dose Inhaler [Proventil];2 PUFF INH Q4H PRN Start:28-Sep-2023 Comments:2 PUFF INH Q4H PRN As Needed for WHEEZING Social History Smoking Status Tobacco smoking consumption unknown Recorded: Results CBC W/AUTO DIFFERENTIAL Ordered On:28-Sep-2023 09:23 BASOPHIL #0.110*3/uL(Normal) R danielito:010*3/uL-0.210*3/uL BASOPHIL %0.4%(Normal) Range:0%- 1.1% EOSINOPHIL #0.010*3/uL(Normal) R danielito:010*3/uL-0.710*3/uL EOSINOPHIL %0.0%(Normal) Range:0 %-5.5% GRANULOCYTE #11.910*3/uL(High) R danielito:1.410*3/uL-6.510*3/uL GRANULOCYTE %93.7%(High) Range:4 0%-74.8% CETQWUHFKV01.7%(Low) Range:34.9% -44.1% XVZYWUQWVQ43.9g/dL(Normal) Range :11.6g/dL-15.4g/dL LYMPHOCYTE #0.510*3/uL(Low) Rang e:1.210*3/uL-3.410*3/uL LYMPHOCYTE %3.9%(Low) Range:17%- 48.8% MEAN CELL HGB29.0pg(Normal) Rang e:26.9pg-33.7pg MEAN CELL HGB GRZXLDQHMOYSA22.3g/dL(Normal) Range:33.3g/dL-35.3g/dL MEAN CELL MTIGLO69.4fL(Normal) R danielito:79.2fL-97.2fL MONOCYTE #0.310*3/uL(Normal) Ran ge:0.110*3/uL-0.610*3/uL MONOCYTE %2.0%(Low) Range:4.6%-1 1.8% PLATELET ZZOUE98096*3/uL(Normal) Range:30703*3/uL-43914*3/uL RED BLOOD CELL4.12{M/mm3}(Normal) Range:3.78{M/mm3}-5.1{M/mm3} RED CELL DISTRIBUTIO N WIDTH13.5%(Normal) Range:11.2%-14.4% WHITE BLOOD CELL12.710*3/uL(High) Range:3.710*3/uL-10.110*3/uL COMPREHENSIVE METABOLIC PANEL Ordered On:28-Sep-2023 09:34 ALBUMIN/GLOBULIN RATIO1.4(Normal) Range:0.7-1.5 ALBUMIN4.6g/dL(Normal) Range:3.5 g/dL-5g/dL ALKALINE PHOSPHATASE CESBB87Z/L(Normal) Range:38U/L-126U/L SGPT/ALT31U(Normal) Range:13U-69 U SGOT/AST28U/L(Normal) Range:15U/ L-46U/L TOTAL BILIRUBIN0.9mg/dL(Normal) Range:0.1mg/dL-1.1mg/dL BUN/CREATININE RATIO12(Normal) R danielito:10-20 BLOOD UREA PJGTLCXO6hi/dL(Normal) Range:7mg/dL-20mg/dL CALCIUM9.6mg/dL(Normal) Range:8. 4mg/dL-10.2mg/dL CORRECTED CALCIUM9.1mg/dL Commen ts:Calcium Corrected for Albumin. LDBYHQNX821agiw/L(Normal) Range: 96mmol/L-107mmol/L CARBON MCVFANV10ydwf/L(Low) Rang e:22mmol/L-32mmol/L CREATININE0.73mg/dL(Normal) Rang e:0.7mg/dL-1.5mg/dL ANION GAP10.0meq/L(Normal) Range :3meq/L-11meq/L GFR RACE RTKJHBWXNZB002 Range:>= 60 Comments:The eGFR is calculated using the 202 CKD-EPI Cr equation,which includes serum Cr, age, and sex but does not include arace coefficient. The National Kidney Foundation recommendsthis formula for calculation eGFR in adults. GFR will notcalculate if sex is unknown or patient age is <18 years.Ref range: >/=60 mL/min/1.73 m2 GLOBULIN3.2g/dL(Normal) Range:2. 5g/dL-4.5g/dL NTYZEEM929xv/dL(High) Range:74mg /dL-106mg/dL POTASSIUM3.8{MMOL}(Normal) Range :3.5{MMOL}-5.1{MMOL} IJNMBF799nslc/L(Normal) Range:13 7mmol/L-145mmol/L CORRECTED IGCTSS370diss/L(Normal) Range:135mmol/L-146mmol/L TOTAL PROTEIN7.7g/dL(Normal) Ran ge:6.3g/dL-8.2g/dL LIPASE Ordered On:28-Sep-2023 09:34 PXSQUD96D/L(Normal) Range:23U/ L-300U/L MAGNESIUM Ordered On:28-Sep-2023 09:34 MAGNESIUM1.76mg/dL(Normal) Ran ge:1.6mg/dL-2.3mg/dL URINALYSIS DIPSTICK Ordered On:28-Sep-2023 09:29 UA APPEARANCEHAZY Range:CLEAR UA BILIRUBIN DIPSTICKNegative Ra nge:NEGATIVE UA BLOOD QAFYRQVW118/ul(Abnormal) Range:NEGATIVE UA COLORYELLOW Range:YELLOW UA GLUCOSE DIPSTICK1 00 (1+)(Abnormal) Range:NORMAL UA LEUKOCYTE ESTERAS E DIPSTICKneg Range:NEGATIVE UA NITRITE DIPSTICKNEG Range:NEG ATIVE UA PH DIPSTICK6.0(Normal) Range: 5-8.5 UA PROTEIN DIPSTICK3 0 (1+)(Abnormal) Range:NEGATIVE UA SPECIFIC GRAVITY1.020(Normal) Range:1.001-1.035 UA KETONE WLAICUOW822 (4+) Range :NEGATIVE UA UROBILINOGEN DIPSTICKnorm Ran ge:NORM-1mg/dL UA MICROSCOPIC * Ordered On:28-Sep-2023 09:29 UA XSX25-70(Abnormal) Range:0- 0 UA WBC6-10/[HPF](Abnormal) Range :0/[HPF]-1/[HPF] UA BACTERIAFEW/[HPF](Abnormal) R danielito:NEGATIVE /HPF UA EPITHELIAL CELLSMANY Range:NE GATIVE UA MUCUSFEW/[LPF](Abnormal) Rang e:NEGATIVE /LPF HCG URINE QUALITATIVE. Ordered On:28-Sep-2023 09:24 HCG URINE QUALITATIVE.NEGATIVE Range:NEGATIVE 1 Ordered On:28-Sep-2023 Comments: Indication for Culture: Sx,w/abn UA 1st24h&WBC>10 29-Sep-2023 11:32 URINE CULTURE Vital Signs 28-Sep-2023 08:37 TEMP UBUADIE53.7c Comments:36.7 Pulse79 Comments:79 Respiratory Rate16 Comments:16 O2 SAT98% Comments:98 BP Jtqjiamm534ta[Hg] Comments:14 6 BP Nhkrcoghh84be[Hg] Comments:78 Height5.7829243[ft_us] Comments: 5 Vgdpfi085if Comments:110.000 28-Sep-2023 08:37 BMI44.3kg/m2 Comments:44.3 Encounters Emergency Encounter Reason:PUI-VOMITING Encounter Diagnosis:Cannabis use, unspecified, uncomplicated,Nausea with vomiting, unspecified 28-Sep-2023 08:40Op13-Lef-1921 11:30 [facility] Discharge Disposition:Discharged to home or self care (routine discharge) Katy Francisco NP-28-Sep-2023 [facility] ([facility])EMERGENCY PROVIDER REPORTREPORT#:[id number] REPORT STATUS: SignedDATE:09/28/23 TIME: 0848PATIENT: BRENDA GARCÍA UNIT #: [id number]#: [id number] ROOM/BED: XEDAGE: 33 SEX: F PCP PHYS: No Primary or Family PhysicianSERVICE AUTHOR: Carol Burns NPREP SRV REP SRV TM:0848* ALL edits or amendments must be made on the electronic/computer document * See AddendumCAROL BURNS NP 09/28/23 0848:HPI-HeadacheFree Text HPI NotesFree Text HPI NotesThe patient is a 33-year-old female with a history of marijuana use andcholecystectomy presenting to the emergency department with a chief complaint ofvomiting times 12 hours. The patient states that she previously had been toldshe may have cyclic vomiting syndrome. She denies any abdominal pain. Shedenies any fever, chills, diarrhea, dizziness, chest pain, shortness of breath.Her last marijuana use was yesterday.GeneralInitial Greet Date/Time 09/28/23 0833PresentationChief Complaint nausea, vomitingSudden in Onset? NoPain/Sev: Onset Pain level 0 out of 10Risk-HeadacheRisk StratificationStroke Risk factors reviewed, Oral contraceptive)( Subarachnoid Hemorrhage Risk factors reviewed)( IC Mass Lesion Risk factors reviewedNIH Stroke Scale NIH Stroke Scale Response Value NIHSS Applicable? Yes 0 Level of Consciousness Alert and responsive (0) 0 Ask Month Age 1 question right (1) 1 Blink Eyes/Squeeze Hands Performs both tasks (0) 0 Horizontal EOM NL side/side eye mvmt (0) 0 Visual Virk No visual loss (0) 0 Facial Palsy Normal symmetry (0) 0 Right Arm Motor Drift (10s) No drift 10 sec (0) 0 Left Arm Motor Drift (10s) No drift 10 sec (0) 0 Right Leg Motor Drift (5s) No drift 5 sec (0) 0 Left Leg Motor Drift (5s) No drift 5 sec (0) 0 Limb Ataxia FNF/Heel-Garza No ataxia (0) 0 Sensation (Arms/Legs/Face) No sensory loss (0) 0 Language Aphasia No aphasia, normal (0) 0 Dysarthria No dysarthria (0) 0 Extinction/Inattention No extinct/inattent (0) 0 Total 1Review of SystemsROS StatementsAll systems rev neg except as marked.Free Text ROS NotesFree Text ROS NotesDizziness, headachePast Medical History - AdultStated Complaint PUI-VOMITINGAllergiesCoded Allergies:No Known Drug Allergies (09/28/23)Home MedicationsReported MedicationsONDANSETRON ODT (ZOFRAN ODT) 4 MG PO B5PSSCFXFGbsml (XANAX) 0.125 MG PO BEDTIMEMETHYLPHENIDATE ER (METADATE ER) 20 MG PO DAILYESCITALOPRAM (LEXAPRO) 20 MG PO DAILYbuPROPion HCL 24HR XL (WELLBUTRIN XL) 300 MG PO DAILYALBUTEROL HFA 2 PUFF INH Q4H PRN PRN WHEEZINGReview of Nursing Notes Rev avail, and agreeSmoking status for patients 13 years old or older: Unknown,if ever smokedPhysical ExamVital SignsVital SignsFirst Documented: Result Date Time Pulse Ox 98 09/27 0834 B/P 146/78 09/27 0834 B/P Mean 100 09/27 08 Temp 98.1 09/28 0734 Pulse 79 09/27 0834 Resp 16 09/27 0834Last Documented: Result Date Time Pulse Ox 98 09/27 0834 B/P 146/78 09/27 0834 B/P Mean 100 09/27 0834 Temp 98.1 09/27 0834 Pulse 79 09/27 0834 Resp 16 09/27 0834Review of Vital Signs ReviewedFocused PEGeneral/Const General/Const Awake, AlertMS Head Head NormocephalicEyes Eyes PERRL, EOMI, No photophobia, Conjunctiva NL, Temporal arteries NLEars/Nose/Throat Ears/Nose/Throat Airway patent, Mucous membranes moist, Pharynx NL, No sinustendernessMS Neck Neck Supple, No meningismus, Full range of motion, No swelling, Non-tender,No massesResp/Chest Respiratory/Chest Breath sounds NL, Breath sounds = bilat, No respiratorydistress, No rales, No rhonchi, No wheezingCardiovascular Cardiovascular Heart rate NL, Regular rhythm, Heart sounds NL, Peripheralcirculation NLAbdomen/GI Abdomen/GI Soft, Non-tender, No guarding, No reboundSkin Skin Color NL, No rash, Warm, Dry, Turgor NLNeurologic Neurologic Oriented X3, Speech NL, No motor deficits, No sensory deficits, CNII - XII intact, Cerebellar NLPsychiatric Psychiatric Affect NL, Mood NL, Cognitive function NL, Thought content NLInterpretation DiagnosticsLab Results InterpretationResultsLaboratory Tests09/28/23 0910:[Embedded Image Not Available]Laboratory Tests: 09/27 09/27 09/27 0910 0900 0900 Chemistry Sodium (137 - 145 MMOL/L) 138 Corrected Sodium (135 - 146 MMOL/L) 138 Potassium (3.5 - 5.1 MMOL) 3.8 Chloride (96 - 107 MMOL/L) 107 Carbon Dioxide (22 - 32 MMOL/L) 21 L Anion Gap (3.0 - 11.0 mEq/L) 10.0 BUN (7 - 20 mg/dL) 9 Creatinine (0.7 - 1.5 mg/dL) 0.73 Est GFR (CKD-EPI 2020) (>=60) 110 BUN/Creatinine Ratio (10 - 20) 12 Glucose (74 - 106 MG/DL) 127 H Calcium (8.4 - 10.2 mg/dL) 9.6 Corrected Calcium (mg/dL) 9.1 Magnesium (1.6 - 2.3 mg/dL) 1.76 Total Bilirubin (0.1 - 1.1 mg/dL) 0.9 AST (15 - 46 Units/L) 28 ALT (13 - 69 Units) 31 Alkaline Phosphatase (38 - 126 Units/L) 86 Total Protein (6.3 - 8.2 gm/dL) 7.7 Albumin (3.5 - 5.0 gm/dL) 4.6 Globulin (2.5 - 4.5 GM/DL) 3.2 Albumin/Globulin Ratio (0.7 - 1.5) 1.4 Lipase (23 - 300 Units/L) 54 Hematology WBC (3.7 - 10.1 K/mm3) 12.7 H RBC (3.78 - 5.10 M/mm3) 4.12 Hgb (11.6 - 15.4 gm/dl) 11.9 Hct (34.9 - 44.1 %) 34.7 L MCV (79.2 - 97.2 fL) 84.4 MCH (26.9 - 33.7 pg) 29.0 MCHC (33.3 - 35.3 g/dl) 34.3 RDW (11.2 - 14.4 %) 13.5 Plt Count (156 - 352 K/mm3) 312 Neut % (Auto) (40.0 - 74.8 %) 93.7 H Lymph % (Auto) (17.0 - 48.8 %) 3.9 L [place] % (Auto) (4.6 - 11.8 %) 2.0 L Eos % (Auto) (0.0 - 5.5 %) 0.0 Baso % (Auto) (0.0 - 1.1 %) 0.4 Neut # (Auto) (1.4 - 6.5 K/mm3) 11.9 H Lymph # (Auto) (1.2 - 3.4 k/mm3) 0.5 L [place] # (Auto) (0.1 - 0.6 K/mm3) 0.3 Eos # (Auto) (0.0 - 0.7 K/mm3) 0.0 Baso # (Auto) (0.0 - 0.2 K/mm3) 0.1 Urines Urine Color (YELLOW) YELLOW Urine Appearance (CLEAR) HAZY Urine pH (5.0 - 8.5) 6.0 Ur Specific [place] (1.001 - 1.035) 1.020 Urine Protein (NEGATIVE) 30 (1+) H Urine Ketones (NEGATIVE) 150 (4+) Urine Blood (NEGATIVE) 250/ul H Urine Nitrite (NEGATIVE) NEG Urine Bilirubin (NEGATIVE) Negative Urine Urobilinogen (NORM - 1mg/dL) norm Ur Leukocyte Esterase (NEGATIVE) neg Urine RBC (0 - 1 RBC/HPF) 26-50 H Urine WBC (0 - 1 wbc/hpf) 6-10 H Ur Epithelial Cells (NEGATIVE) MANY Urine Bacteria (NEGATIVE /HPF) FEW H Urine Mucus (NEGATIVE /LPF) FEW H Urine Glucose (NORMAL) 100 (1+) H Urine HCG, Qual (NEGATIVE) NEGATIVEMicrobiology: Date/Time Procedure - Status Source Growth 09/27 0900 Urine Culture - RECD URINERe-Evaluation MDMFree Text MDM NotesFree Text MDM NotesChart reviewed.Patient presents with vomiting x 12 hours. Patient attempted to take Zofranhowever she states she vomited this medication up. Patient does report chronicmarijuana use. She states she previously was told she may have cyclic vomitingsyndrome. She states she was previously told that marijuana use may beassociated with the vomiting. She states she was previously provided amedication that fixed everything and made me very tired but she is unsure whatthis medication was.CBC, CMP, lipase, Mag, urinalysis, test ordered.Patient medicated with 1 L normal saline and IV Haldol as well as IV zofran.Laboratory workup unremarkable. Patient urinalysis is negative for infection.There is blood noted to be in urinalysis however patient is currently on hermenstrual cycle.Patient had resolution of her nausea and vomiting after medication. It islikely she may have been experiencing cannabis hyperemesis. I discussed thiswith the patient.Was able to tolerate p.o. fluids prior to discharge.Strict return to the ED precautions were given to the patient. She reportedunderstanding and had no further questions at the time of discharge.)( Re-Evaluation/Progress #1)( Re-Eval Status ResolvedED CourseMedication(s) OrderedMedication(s) Ordered:Central Nervous System Agents Sig/Cyril Start time Last Medication Dose Route Stop Time Status Admin Haloperidol Lactate 2 MG X1ED ONE 09/27 0900 DC 09/27 IV 09/27 0901 0912Electrolytic, Caloric, And Pavan Sig/Cyril Start time Last Medication Dose Route Stop Time Status Admin Sodium Chloride 1,000 ML BOLUS ONE 09/27 0900 DC 09/27 IV 09/27 0959 0912Gastrointestinal Drugs Sig/Cyril Start time Last Medication Dose Route Stop Time Status Admin Ondansetron HCl 4 MG X1ED ONE 09/27 1000 DC 09/27 IV 09/27 1001 1026Differential Diagnosis)( Differential Diagnosis gastroenteritis, UTI, marijuana hyperemesis, viralsyndrome, hernia, bowel obstruction, appendicitis, gastritis, among othersPatient Discharge DepartureVital Signs/ConditionVital SignsFirst Documented: Result Date Time Pulse Ox 98 09/27 0834 B/P 146/78 09/27 0834 B/P Mean 100 09/27 0834 Temp 98.1 09/27 0834 Pulse 79 09/27 0834 Resp 16 09/27 0834Last Documented: Result Date Time Pulse Ox 98 09/27 0834 B/P 146/78 / 0834 B/P Mean 100 / 0834 Temp 98.1 / 0834 Pulse 79 09/27 0834 Resp 16 09/27 0834All vital signs available at the time of this entry have been reviewed.Condition StableClinical ImpressionClinical ImpressionPrimary Impression: VomitingTime of Impression 1124Disposition DecisionDischarge )( Discharged to Home Yes )( Time 1124 )( Date 09/28/23Discharge/Care PlanCounseled Regarding Diagnosis, Lab results, Need for follow-up, When to returnto ED(Auto) PrescriptionsCurrent Visit Scriptsondansetron (ZOFRAN) 4 MG PO Q6H PRN PRN NAUSEA AND VOMITING ondansetron (ZOFRAN) 4 MG PO Q6H PRN PRN NAUSEA AND VOMITING #20 TABPatient Instructions ED Diet Vomiting DiarrheaAdditional InstructionsPlease return with inability to keep down food or fluids, fever, dizziness,chest pain, shortness of breath.ALLEY RILEY DO 09/29/23 1123:Patient Discharge DepartureDischarge/Care PlanReferralsProvider Referral: No Primary or Family PhysicianSupervising Physician Note MidLv Saw Pt Alone I was available for consultation as needed at all times during the patient'svisit in the emergency department. at 1535 at 1123Addendum 1: 09/30/23 1631 by Amy Frost AddendumAddmkumPatient's urine culture positive for corynebacterium coyleae - commonly acontaminate per labor commissioner, and sensitivies not performed due to this. I calledand spoke with patient, and she states that she is feeling a lot better, nofurther vomiting. She reports no abdominal pain, and denies urinary symptoms.I discussed with her urine culture results. As no symptoms, and feelingimproved, more likely this is a contaminate, and I recommended she follow upwith primary care for recheck of urine with a culture. Patient agrees with thisplan - all questions answered, including reasons for prompt return as needed. at 1631 at 1700Addendum 2: 09/30/23 1701 by Alley Riley DOPatient AddendumAddendum at 1701RPT #: [id number] OF REPORT Plan of Treatment Please return with inability to keep down food or fluids, fever, dizziness, chest pain, shortness of breath. Future Tests Future scheduled test information is unavailable Pending Tests Test Name Ordered Date Scheduled Date URINE CULTURE September 28, 2023 9:00am Future Visits Future appointment information is unavailable Referrals to Other Providers Reason for Referral Referral Start Date Provider Provider Contact Information Provider Address No Primary or Family Physician Work Phone: +1. Future Procedures Future procedure information is unavailable Future Medications Future medication information is unavailable Patient Instructions ED Diet Vomiting Diarrhea Assessments Diagnosis Onset Date Resolution Status Vomiting Active
--- OUTSIDE RECORDS SUMMARY | 2024-06-28 17:24 | XMS_ITS | Clinical Summary ---
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 Gender Identity Not on file Sexual Orientation Not on file Plan of Treatment Health Maintenance Due Date Last Done Comments Hepatitis C Virus (HCV) Screening 1988 TdaP Immunization 1988 Hepatitis B Immunization (1 of 3 - 19+ 3-dose series) 09/26/2007 Pap Smear 2009 Cervical Cancer Screening (CCS) 2018 HPV/Cotest 2018 Influenza Immunization (#1) 2024 SARS-COV-2 Immunization ( season) 2024 05/02/2021, 07/09/2020 Respiratory Syncytial Virus (RSV) Immunization (Adult) (1 - 1-dose 75+ series) 09/26/2063 Meningococcal Immunization (ACWY) Aged Out No longer eligible b ased on patient's age to complete this topic Pneumococcal Immunization Combined Aged Out No longer eligible b ased on patient's age to complete this topic Rotavirus Immunization Aged Out No lo nger eligible based on patient's age to complete this topic
--- OUTSIDE RECORDS SUMMARY | 2024-06-28 17:24 | XMS_ITS | Clinical Summary ---
Author Organization [facility] [place] [address] [place] [address] [address] [place] [address] Care Team Providers Care Stockroom Coordinator Name Role Phone Ravindra Gillespie DO Primary Care Provider [phone] Allergies Active Allergy Reactions Criticality Noted Date [...] (12/24/2019): Added automatically from request for surgery [id number] Surgical History Surgery Date Site/Laterality Comments KNEE ARTHROSCOPY Right displaced patella with 2 screws CHOLECYSTECTOMY Medical History Medical History Date Comments Hx Other Medical Right Knee Surg johnnie Asthma PONV (postoperative nausea and vomiting) Anxiety Depression Family History Medical History Relation Name Comments Diabetes Father Wally Hinds Diabetes mellit us; Hypertension Father Wally Hinds Hypertension; Lung cancer Paternal Grandfather Relation Name Status Comments Father Wally Hinds Paternal Grandfather Social History Tobacco Use Types Packs/Day Years Used Date Smoking Tobacco: Never Cigarettes Smokeless Tobacco: Never Tobacco Cessation:Counseling Given: Not Answered Alcohol Use Standard Drinks/Week Comments Yes 0 (1 standard drink = 0.6 oz pur e alcohol) Rarely Comments No Sex and Gender Information Value Date Recorded Sex Assigned at Not on file 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 Gender Identity Not on file Sexual Orientation Not on file Obstetrics History Last Filed Vital Signs Vital Sign Reading [...] 01/17/2024 2:53 PM CDT Plan of Treatment Health Maintenance Due Date Last Done Comments Cervical Cancer Screening 1988 Depression Screening 1988 Hepatitis C Screening 1988 DTaP/Tdap/Td Vaccine (1 - Tdap) 09/26/1999 Varicella Vaccines (1 of 2 - 13+ 2-dose series) 2001 Hepatitis B Screening 2006 Regular Well Visit/Exam 18-64 2006 Covid-19 Vaccine (2023-2 5 season) 2024 03/08/2022, 05/02/2021, 07/09/2020 Influenza Vaccine (#1) 2024 03/07/2022 HPV Vaccines Aged Out No longer eligi ble based on patient's age to complete this topic Pneumococcal vaccine <65 Aged Out No longer eligible based on patient's age to complete this topic Insurance Omnigy [facility] [facility] [id number] Care Teams Stockroom Coordinator Relationship Specialty Start Date End Date Ravindra Gillespie DO [address] [place] [place] [id number] PCP - General Family Practice 03/15/20
--- OUTSIDE RECORDS SUMMARY | 2024-06-28 17:24 | XMS_ITS ---
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 LIANG ALMANZA DO Active Last Documented On 2 10:05PM ; [facility] 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 05/05/2020 LIANG ALMANZA DO Active Last Documented On 0 1:48PM ; [facility] 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 11/28/2019 LIANG ALMANZA DO Active Last Documented On 0 12:42PM ; [facility] Limb Pain Toe 01/04/2019 05/05/2020 LIANG ALMANZA DO Res olved Last Documented On 0 1:49PM ; [facility] Abdmnal Pain Unspcf Site 11/23/2008 LIANG BORJA DO Inactive Last Documented On 8 10:28AM ; [facility] GSTR/DDNTS NOS W/O HMRHG 11/23/2008 LIANG BORJA DO Inactive Last Documented On 8 10:28AM ; [facility] URIN TRACT INFECTION NOS 11/23/2008 LIANG BORJA DO Inactive Last Documented On 8 10:28AM ; [facility] Plan of Treatment Findings Encounter Date Continue current medication CHECK UP with LIANG VAUGHNFF DO 08/24/2023 Last Documented On 4 7:44AM ; [facility] Ordered follow-up visit CHECK UP with LIANG PHAM DO 08/24/2023 Last Documented On 4 7:44AM ; [facility] Ordered patient to call if p roblem develops CHECK UP with LIANG Woodward PALCHEFF DO 08/24/2023 Last Documented On 4 7:44AM ; [facility] PLAN [Use for s.o.a.p. note free text] CHECK UP with LIANG Woodward PALCHEFF DO 08/24/2023 Last Documented On 4 7:44AM ; [facility] Continue current medication CHECK UP with LIANG Woodward PALCHEFF DO 07/17/2023 Last Documented On 4 3:39PM ; [facility] Ordered follow-up visit CHECK UP with LIANG SANTAMARIA CHEFF DO 07/17/2023 Last Documented On 4 3:39PM ; [facility] Ordered patient to call if p roblem develops CHECK UP with LIANG Woodward PALCHEFF DO 07/17/2023 Last Documented On 4 3:39PM ; [facility] PLAN [Use for s.o.a.p. note free text] CHECK UP with LIANG SANTAMARIACHEFF DO 07/17/2023 Last Documented On 4 3:39PM ; [facility] Continue current medication CHECK UP with LIANG Woodward PALCHEFF DO 12/19/2022 Last Documented On 3 6:57PM ; [facility] Ordered follow-up visit CHECK UP with LIANG Woodward PAL CHEFF DO 12/19/2022 Last Documented On 3 6:57PM ; [facility] Ordered patient to call if p roblem develops CHECK UP with LIANG Woodward PALCHEFF DO 12/19/2022 Last Documented On 3 6:57PM ; [facility] PLAN [Use for s.o.a.p. note free text] CHECK UP with LIANG Woodward PALCHEFF DO 12/19/2022 Last Documented On 3 6:57PM ; [facility] Continue current medication CHECK UP with LIANG ALMANZA DO 07/25/2022 Last Documented On 3 8:11PM ; [facility] Ordered follow-up visit CHECK UP with LIANG PHAM DO 07/25/2022 Last Documented On 3 8:11PM ; [facility] Ordered patient to call if [place] oleary develops CHECK UP with LIANG ALMANZA DO 07/25/2022 Last Documented On 3 8:11PM ; [facility] PLAN [Use for s.o.a.p. note free text] CHECK UP with LIANG ALMANZA DO 07/25/2022 Last Documented On 3 8:11PM ; [facility] Continue current medication CHECK UP with LIANG ALMANZA DO 03/07/2022 Last Documented On 2 10:57AM ; [facility] Ordered follow-up visit CHECK UP with LIANG SANTAMARIA CHEMO DO 03/07/2022 Last Documented On 2 10:57AM ; [facility] Ordered return to the clinic if condition worsens or new symptoms arise CHECK UP with LIANG ALMANZA DO 03/07/2022 Last Documented On 2 10:57AM ; [facility] PLAN [Use for s.o.a.p. note free text] CHECK UP with LIANG VAUGHNMO DO 03/07/2022 Last Documented On 2 10:57AM ; [facility] Continue current medication CHECK UP with LIANG ALMANZA DO 11/14/2021 Last Documented On 2 11:07AM ; [facility] PLAN [Use for s.o.a.p. note free text] CHECK UP with LIANG ALMANZA DO 11/14/2021 Last Documented On 2 11:07AM ; [facility] Anti-biotics prescribed. [place] ly Neosporin or triple anti-biotics twice a day. She was advised to drink plenty of water and stay hydrated. Notice the difference in symptoms. Call or RTC if not improving. Referral for ENT will be considered for further evaluation. PROBLEM VISIT with LIANG ALMANZA DO 06/28/2021 Last Documented On 2 12:42PM ; [facility] Medication instruction PROBLEM VISIT with LIANG ALMANZA DO 06/28/2021 Last Documented On 2 12:42PM ; [facility] Ordered return to the clinic if condition worsens or new symptoms arise PROBLEM VISIT with LIANG ALMANZA DO 06/28/2021 Last Documented On 2 12:42PM ; [facility] Watch for signs/symptoms of infection OR OBLEM VISIT with LIANG ALMANZA DO 06/28/2021 Last Documented On 2 12:42PM ; [facility] Ordered return to the clinic if condition worsens or new symptoms arise PROBLEM VISIT with LIANG ALMANZA DO 05/31/2021 Last Documented On 2 4:14PM ; [facility] PLAN [Use for s.o.a.p. note free text] PROBLEM VISIT with LIANG ALMANZA DO 05/31/2021 Last Documented On 2 4:14PM ; [facility] Ordered an X-ray PROBLEM VISIT with LIANG MCFARLANE DO 11/15/2020 Last Documented On 1 8:15PM ; [facility] Ordered analgesics (non-ster oidal anti-inflammatory agents) PROBLEM VISIT with LIANG ALMANZA DO 11/15/2020 Last Documented On 1 8:15PM ; [facility] Ordered home range of motion exercises P ROBLEM VISIT with LIANG ALMANZA DO 11/15/2020 Last Documented On 1 8:15PM ; [facility] Ordered return to the clinic if condition worsens or new symptoms arise PROBLEM VISIT with LIANG ALMANZA DO 11/15/2020 Last Documented On 1 8:15PM ; [facility] Ordered work restrictions PROBLEM VISIT with KRYSTA ALMANZA DO 11/15/2020 Last Documented On 1 8:15PM ; [facility] PLAN [Use for s.o.a.p. note free text] PROBLEM VISIT with LIANG ALMANZA DO 11/15/2020 Last Documented On 1 8:15PM ; [facility] Ordered analgesics PROBLEM VISIT with LIANG PHAM DO 11/25/2019 Last Documented On 0 12:44PM ; [facility] Take Claritin or Zyrtec danica y. Continue the Pepcid. Consider fasting lab in the future PROBLEM VISIT with LIANG ALMANZA DO 12/19/2017 Last Documented On 8 8:54PM ; [facility] Medication instruction PROBLEM VISIT with LIANG ALMANZA DO 12/19/2017 Last Documented On 8 8:54PM ; [facility] Medication instruction PROBLEM VISIT with LIANG ALMANZA DO 12/19/2017 Last Documented On 8 8:54PM ; [facility] Ordered patient to call if [place] oleary develops PROBLEM VISIT with LIANG ALMANZA DO 12/19/2017 Last Documented On 8 8:54PM ; [facility] Ordered return to the clinic if condition worsens or new symptoms arise PROBLEM VISIT with LIANG ALMANZA DO 12/19/2017 Last Documented On 8 8:54PM ; [facility] Ordered follow-up visit as n eeded with an office visit. PROBLEM VISIT with DREA MCGUIRE PA-C 07/16/2009 Last Documented On 0 1:04PM ; [facility] Referrals To Diagnosis General Surgery WILFREDO CALZADA MD Calculus of ga llbladder w chronic cholecyst w/o obstruction Last Documented On 2 2:10PM ; [facility] Instructions to patient Intervention and counseling on cessation of tobacco use Last Documented On 3 6:35PM ; [facility] Intervention and counseling on cessation of tobacco use Last Documented On 2 2:43PM ; [facility] Intervention and counseling on cessation of tobacco use Last Documented On 2 10:46AM ; [facility] Intervention and counseling on cessation of tobacco use Last Documented On 2 10:43AM ; [facility] Intervention and counseling on cessation of tobacco use Last Documented On 2 11:02AM ; [facility] Go to the emergency room if condition worsens Last Documented On 2 11:55AM ; [facility] Watch for signs/symptoms of infection Last Documented On 2 12:34PM ; [facility] Intervention and counseling on cessation of tobacco use Last Documented On 2 6:40PM ; [facility] Intervention and counseling on cessation of tobacco use Last Documented On 2 3:33PM ; [facility] Watch for signs/symptoms of infection Last Documented On 1 2:41PM ; [facility] May resume normal activities as tolerated Last Documented On 1 8:13PM ; [facility] Education and Decision Aids were provided during visit for: Did not discuss concerns abo ut Vaping use Last Documented On 2 4:06PM ; [facility] Assessments Includes: Assessments for all patient encounters Findings Encounter Date Mixed anxiety disorder CHECK UP with LIANG BORJA DO 08/24/2023 Last Documented On 4 7:44AM ; [facility] Moderate recurrent major dep ression with anxiety CHECK UP with LIANG ALMANZA DO 08/24/2023 Last Documented On 4 7:44AM ; [facility] ADHD, predominantly inattentive type CHECK UP wi LIANG ALMANZA DO 07/17/2023 Last Documented On 4 3:39PM ; [facility] Mixed anxiety disorder CHECK UP with LIANG BORJA DO 07/17/2023 Last Documented On 4 3:39PM ; [facility] Moderate recurrent major dep ression with anxiety CHECK UP with LIANG ALMANZA DO 07/17/2023 Last Documented On 4 3:39PM ; [facility] Other ovarian cyst CHECK UP with LIANG ALMANZA DO 07/17/2023 Last Documented On 4 3:39PM ; [facility] Acute COVID-19 infection * PHONE CALL with LIANG ALMANZA DO 03/19/2023 Last Documented On 3 12:52PM ; [facility] Nausea * PHONE CALL with LIANG Perez DO 03/19/2023 Last Documented On 3 12:52PM ; [facility] ADHD, predominantly inattentive type CHECK UP wi LIANG L PALCHEFF DO 12/19/2022 Last Documented On 3 6:57PM ; [facility] Mixed anxiety disorder CHECK UP with LIANG L PALC HEFF DO 12/19/2022 Last Documented On 3 6:57PM ; [facility] Moderate recurrent major dep ression with anxiety CHECK UP with LIANG L PALCHEFF DO 12/19/2022 Last Documented On 3 6:57PM ; [facility] [L30.9 - Dermatitis, unspeci fied] dermatitis * PHONE CALL with TIFF BRONSON SIDING STAP[employer]ER- 11/29/2022 Last Documented On 3 10:28AM ; [facility] ADHD, predominantly inattentive type CHECK UP wi LIANG L PALCHEFF DO 07/25/2022 Last Documented On 3 8:11PM ; [facility] Mixed anxiety disorder CHECK UP with LIANG L PALC HEFF DO 07/25/2022 Last Documented On 3 8:11PM ; [facility] Moderate recurrent major dep ression with anxiety CHECK UP with LIANG L PALCHEFF DO 07/25/2022 Last Documented On 3 8:11PM ; [facility] ADHD, predominantly inattentive type CHECK UP wi LIANG L PALCHEFF DO 03/07/2022 Last Documented On 2 10:57AM ; [facility] Moderate recurrent major dep ression with anxiety CHECK UP with LIANG L PALCHEFF DO 03/07/2022 Last Documented On 2 10:57AM ; [facility] ADHD, predominantly inattentive type CHECK UP wi th LIANG L PALCHEFF DO 11/14/2021 Last Documented On 2 11:07AM ; [facility] Anxiety disorder NOS CHECK UP with LIANG L PALCHE FF DO 11/14/2021 Last Documented On 2 11:07AM ; [facility] Bilateral carpal tunnel syndrome CHECK UP with J JACEK L PALCHEFF DO 11/14/2021 Last Documented On 2 11:07AM ; [facility] Moderate recurrent major dep ression with anxiety CHECK UP with LIANG L PALCHEFF DO 11/14/2021 Last Documented On 2 11:07AM ; [facility] ADHD, predominantly inattentive type CHECK UP wi th LIANG L PALCHEFF DO 09/13/2021 Last Documented On 2 10:09PM ; [facility] Moderate recurrent major dep ression with anxiety CHECK UP with LIANG L PALCHEFF DO 09/13/2021 Last Documented On 2 10:09PM ; [facility] ADHD, predominantly inattentive type CHECK UP wi th LIANG L PALCHEFF DO 08/15/2021 Last Documented On 2 8:58PM ; [facility] Acute otitis media of right ear PROBLEM VISIT wi th LIANG L PALCHEFF DO 06/28/2021 Last Documented On 2 12:42PM ; [facility] Otitis externa of the left ear PROBLEM VISIT wit h LIANG L PALCHEFF DO 06/28/2021 Last Documented On 2 12:42PM ; [facility] Arthralgia of the right ulna/radius/wris t PROBLEM VISIT with LIANG L PALCHEFF DO 05/31/2021 Last Documented On 2 4:14PM ; [facility] Arthralgias of multiple sites PROBLEM VISIT with LIANG L PALCHEFF DO 05/31/2021 Last Documented On 2 4:14PM ; [facility] Moderate recurrent major dep ression with anxiety PROBLEM VISIT with LIANG L PALCHEFF DO 05/31/2021 Last Documented On 2 4:14PM ; [facility] Neuralgia PROBLEM VISIT with LIANG L PALCHE FF DO 05/31/2021 Last Documented On 2 4:14PM ; [facility] Moderate recurrent major dep ression with anxiety CHECK UP with LIANG L PALCHEFF DO 04/04/2021 Last Documented On 1 10:11PM ; [facility] Depression PROBLEM VISIT with LIANG L PALCHE FF DO 03/04/2021 Last Documented On 1 5:28PM ; [facility] Depression CHECK UP with LIANG L PALCHEFF DO 02/08/2021 Last Documented On 1 9:48PM ; [facility] Moderate recurrent major dep ression with anxiety CHECK UP with LIANG L PALCHEFF DO 02/08/2021 Last Documented On 1 9:48PM ; [facility] Post COVID-19 condition CHECK UP with LIANG PHAM DO 02/08/2021 Last Documented On 1 9:48PM ; [facility] Acute COVID-19 infection * PHONE CALL with LIANG ALMANZA DO 01/13/2021 Last Documented On 1 3:25PM ; [facility] Dyspnea caused by severe acu te respiratory syndrome coronavirus 2 * PHONE CALL with LIANG ALMANZA DO 01/13/2021 Last Documented On 1 3:25PM ; [facility] Contusion with intact skin s urface of the right lateral knee PROBLEM VISIT with LIANG ALMANZA DO 11/15/2020 Last Documented On 1 8:15PM ; [facility] Knee sprain PROBLEM VISIT with LIANG HASSAN DO 11/15/2020 Last Documented On 1 8:15PM ; [facility] Late effects of accidental fall PROBLEM VISIT wi th LIANG ALMANZA DO 11/15/2020 Last Documented On 1 8:15PM ; [facility] Osteoarthritis of knee PROBLEM VISIT with LIANG ALMANZA DO 11/15/2020 Last Documented On 1 8:15PM ; [facility] Moderate recurrent major dep ression with anxiety CHECK UP with LIANG ALMANZA DO 10/26/2020 Last Documented On 1 1:59PM ; [facility] Moderate recurrent major dep ression with anxiety CHECK UP with LIANG ALMANZA DO 08/05/2020 Last Documented On 1 8:38PM ; [facility] Moderate recurrent major dep ression with anxiety 1 MONTH CHECK with LIANG ALMANZA DO 05/05/2020 Last Documented On 1 7:39PM ; [facility] Anxiety disorder NOS GENERAL OFFICE VISIT with Laila ALMANZA DO 04/09/2020 Last Documented On 0 4:56PM ; [facility] Depression GENERAL OFFICE VISIT with LIANG ALMANZA DO 04/09/2020 Last Documented On 0 4:56PM ; [facility] Arthralgias in multiple sites PROBLEM VISIT with LIANG VAUGHNFF DO 11/25/2019 Last Documented On 0 12:44PM ; [facility] Cholelithiasis PROBLEM VISIT with LIANG Woodward PALCHE FF DO 11/25/2019 Last Documented On 0 12:44PM ; [facility] Gastritis PROBLEM VISIT with LIANG Woodward PALCHE FF DO 11/25/2019 Last Documented On 0 12:44PM ; [facility] GERD PROBLEM VISIT with LIANG Woodward PALCHE FF DO 11/25/2019 Last Documented On 0 12:44PM ; [facility] Pain in thoracic spine PROBLEM VISIT with LIANG Woodward PALCHEFF DO 11/25/2019 Last Documented On 0 12:44PM ; [facility] Ingrowing nail with infection PROBLEM VISIT with LIANG VAUGHNFF DO 01/03/2019 Last Documented On 9 4:17PM ; [facility] Pain in toe PROBLEM VISIT with LIANG SANTAMARIACHE FF DO 01/03/2019 Last Documented On 9 4:17PM ; [facility] Urticaria PROBLEM VISIT with LIANG SANTAMARIACHE FF DO 12/19/2017 Last Documented On 8 8:54PM ; [facility] Labyrinthitis -push fluids, rest, start second round of amoxil for root canal, add meclizine and flonase SICK VISIT with DREA MCGUIRE PA-C 10/25/2010 Last Documented On 1 2:10PM ; [facility] Metrorrhagia -pt not current ly sexually active, confirmed with negative preg test today. Pt has rx for BCP but hasn't started it yet SICK VISIT with DREA MCGUIRE PA-C 10/25/2010 Last Documented On 1 2:10PM ; [facility] Acute mastitis of the right breast -from cat scratch PROBLEM VISIT with DREA MCGUIRE PA-C 07/16/2009 Last Documented On 0 1:04PM ; [facility] Tinea corporis -left breast PROBLEM VISIT with Laila MCGUIRE PA-C 07/16/2009 Last Documented On 0 1:04PM ; [facility] Sprained left knee PROBLEM VISIT with LIANG PHAM DO 05/05/2009 Last Documented On 9 7:20PM ; [facility] Instructions Includes: Instructions for all patient encounters Instructions to patient Intervention and counseling on cessation of tobacco use Last Documented On 3 6:35PM ; [facility] Intervention and counseling on cessation of tobacco use Last Documented On 2 2:43PM ; [facility] Intervention and counseling on cessation of tobacco use Last Documented On 2 10:46AM ; [facility] Intervention and counseling on cessation of tobacco use Last Documented On 2 10:43AM ; [facility] Intervention and counseling on cessation of tobacco use Last Documented On 2 11:02AM ; [facility] Go to the emergency room if condition worsens Last Documented On 2 11:55AM ; [facility] Watch for signs/symptoms of infection Last Documented On 2 12:34PM ; [facility] Intervention and counseling on cessation of tobacco use Last Documented On 2 6:40PM ; [facility] Intervention and counseling on cessation of tobacco use Last Documented On 2 3:33PM ; [facility] Watch for signs/symptoms of infection Last Documented On 1 2:41PM ; [facility] May resume normal activities as tolerated Last Documented On 1 8:13PM ; [facility] Education and Decision Aids were provided during visit for: Did not discuss concerns abo ut Vaping use Last Documented On 2 4:06PM ; [facility] Medical Equipment - Implanted Devices Includes: Current and historical Devices No Medical Equipment Recorded Medications Includes: Current and historical Medications Current Medications (continue as prescribed) Escitalopram Oxalate 20 MG Oral Tablet 11/02/2023 Provider: LIANG ALMANZA DO Diagnosis: Major depressive disorder, single episode, unspecified TAKE 1 TABLET BY MOUTH EVERY DAY Last Documented On 11/02/2023 8:41AM By LIANG ALMANZA DO ; [facility] buPROPion HCl ER (XL) 300 MG Oral Tablet Extended Release 24 Hour 10/25/2023 Provider: LIANG ALMANZA DO Diagnosis: Anxiety disorder , unspecified 1 TABLET DAILY Last Documented On 10/25/2023 12:36PM By LIANG ALMANZA DO ; [facility] Methylphenidate HCl ER 20 MG Oral Tablet Extended Release 10/05/2023 Provider: LIANG BORJA DO Diagnosis: Attn-defct hyper activity disorder, predom inattentive type One tablet daily am Last Documented On 10/05/2023 8:25AM By LIANG ALMANZA DO ; [facility] Ondansetron 4 MG Oral Tablet Disintegrating 09/17/2023 Provider: LIANG ALMANZA DO Diagnosis: Nausea 1 every 4 - 6 hours as needed nausea Last Documented On 09/17/2023 6:46PM By LIANG ALMANZA DO ; [facility] ALPRAZolam 0.25 MG Oral Tablet 08/31/2023 [facility] Diagnosis: Anxiety disorder , unspecified TAKE 1/4-1 TABLET BY MOUTH E VERY 8-12 HOURS NEEDED FOR ANXIETY. MUST LAST AT LEAST 30 DAYS Last Documented On 1:24PM By [facility] ; [facility] buPROPion HCl ER (XL) 150 MG Oral Tablet Extended Release 24 Hour 07/11/2023 Provider: LIANG ALMANZA DO Diagnosis: Anxiety disorder , unspecified TAKE 1 TABLET BY MOUTH EVERY DAY IN THE MORNING Last Documented On 07/11/2023 9:37AM By LIANG ALMANZA DO ; [facility] Albuterol Sulfate HFA 108 (9 0 Base) MCG/ACT Inhalation Aerosol Solution 07/11/2023 Provider: LIANG MCFARLANE DO Diagnosis: COVID-19 INHALE 1-2 PUFFS INTO THE STACIA NGS EVERY 4-12 HRS NEEDED FOR WHEEZE Last Documented On 07/11/2023 9:37AM By LIANG ALMANZA DO ; [facility] Methylphenidate HCl 5 MG Ora l Tablet 04/11/2023 Provider: LIANG ALMANZA DO Diagnosis: Attn-defct hyper activity disorder, predom inattentive type 1 pm work days Last Documented On 04/11/2023 10:34AM By LIANG ALMANZA DO ; [facility] Triamcinolone Acetonide 0.1% External Cream 11/29/2022 Provider: TIFF VAZQUEZ-[facility] Diagnosis: Dermatitis, unsp ecified apply to affected area 2 omega es daily. do not use for longer than 14 days in a row. Last Documented On 3 10:38AM By [facility] ; [facility] Nexplanon 68 MG Subcutaneous Implant 01/06/2022 Prov ider: Diagnosis: Last Documented On 03/07/2022 2:42PM By Lilliana Munroe Harry ; [facility] Flonase 50 MCG/ACT Nasal Suspension 04/09/2020 Provi harris: Diagnosis: Last Documented On 04/09/2020 10:25AM By Concepción Albright Harry ; [facility] ZyrTEC Allergy 10 MG Oral Tablet 04/09/2020 Provider : Diagnosis: Last Documented On 04/09/2020 10:25AM By Concepción Albright Harry ; [facility] EpiPen 2-Cory 0.3MG/0.3ML Injection Solution Auto-injec tor 12/19/2017 Provider: Diagnosis: Given to her by the ER Last Documented On 12/19/2017 10:12AM By PETER PRABHAKAR Harry ; [facility] Past Medications on file Methylphenidate HCl ER 20 MG Oral Tablet Extended Release 08/31/2023 - 10/05/2023 Provider: TIFF BRONSON [facility] Diagnosis: Attn-defct hyperactivity disorder, predom inattentive type One tablet daily am Last Documented On 10/05/2023 8:19AM By LIANG ALMANZA DO ; [facility] Escitalopram Oxalate 20 MG Oral Tablet 08/06/2023 - 11/02/2023 Provider: LIANG ALMANZA DO Diagnosis: Major depressive disorder, single episode, unspecified TAKE 1 TABLET BY MOUTH EVERY DAY Last Documented On 11/02/2023 8:26AM By LIANG ALMANZA DO ; [facility] Methylphenidate HCl ER 20 MG Oral Tablet Extended Release 08/02/2023 - 08/31/2023 Provider: TIFF BRONSON [facility] Diagnosis: Attn-defct hyperactivity disorder, predom inattentive type One tablet daily am Last Documented On 4 5:06PM By Tiff Bronson [facility] ; [facility] buPROPion HCl ER (XL) 300 MG Oral Tablet Extended Release 24 Hour 07/26/2023 - 10/25/2023 Provider: LIANG ALMANZA DO Diagnosis: Anxiety disorder , unspecified One tablet daily Last Documented On 10/25/2023 12:33PM By LIANG ALMANZA DO ; [facility] ALPRAZolam 0.25 MG Oral Tablet 07/17/2023 - 08/31/2023 Provider: LIANG ALMANZA DO Diagnosis: Anxiety disorder , unspecified TAKE 1/4-1 TABLET BY MOUTH E VERY 8-12 HOURS NEEDED FOR ANXIETY. MUST LAST AT LEAST 30 DAYS Last Documented On 1:14PM By Tiff Bronson [facility] ; [facility] Escitalopram Oxalate 20 MG Oral Tablet 07/09/2023 - 08/06/2023 Provider: LIANG ALMANZA DO Diagnosis: Major depressive disorder, single episode, unspecified TAKE 1 TABLET BY MOUTH EVERY DAY Last Documented On 08/06/2023 12:59PM By LIANG ALMANZA DO ; [facility] Methylphenidate HCl ER 20 MG Oral Tablet Extended Release 06/27/2023 - 08/02/2023 Provider: TIFF BRONSON [facility] Diagnosis: Attn-defct hyperactivity disorder, predom inattentive type One tablet daily am Last Documented On 2:06PM By Tiff Bronson [facility] ; [facility] buPROPion HCl ER (XL) 150 MG Oral Tablet Extended Release 24 Hour 06/15/2023 - 07/11/2023 Provider: LIANG ALMANZA DO Diagnosis: Anxiety disorder , unspecified TAKE 1 TABLET BY MOUTH EVERY DAY IN THE MORNING Last Documented On 07/11/2023 9:28AM By LIANG ALMANZA DO ; [facility] Escitalopram Oxalate 20 MG Oral Tablet 06/07/2023 - 07/09/2023 Provider: LIANG ALMANZA DO Diagnosis: Major depressive disorder, single episode, unspecified TAKE 1 TABLET BY MOUTH EVERY DAY Last Documented On 07/09/2023 8:18AM By LIANG ALMANZA DO ; [facility] Methylphenidate HCl ER 20 MG Oral Tablet Extended Release 05/22/2023 - 06/27/2023 Provider: LIANG ALMANZA DO Diagnosis: Attn-defct hyperactivity disorder, predom inattentive type One tablet daily am Last Documented On 12:47PM By Tiff Bronson [facility] ; [facility] Benzonatate 100 MG Oral Capsule 04/13/2023 - Provider: LIANG ALMANZA DO Diagnosis: COVID-19 as directed 1-2 q 6 hours prn cough Last Documented On 04/13/2023 2:28PM By LIANG ALMANZA DO ; [facility] Methylphenidate HCl ER 20 MG Oral Tablet Extended Release 04/11/2023 - 05/22/2023 Provider: LIANG ALMANZA DO Diagnosis: Attn-defct hyperactivity disorder, predom inattentive type One tablet daily am Last Documented On 05/22/2023 6:52PM By LIANG ALMANZA DO ; [facility] ALPRAZolam 0.25 MG Oral Tablet 03/27/2023 - 07/17/2023 Provider: LIANG ALMANZA DO Diagnosis: Anxiety disorder , unspecified TAKE 1/4-1 TABLET BY MOUTH E VERY 8-12 HOURS NEEDED FOR ANXIETY. MUST LAST AT LEAST 30 DAYS Last Documented On 07/17/2023 5:48PM By LIANG ALMANZA DO ; [facility] Ondansetron 4 MG Oral Tablet Disintegrating 03/19/2023 - 09/17/2023 Provider: LIANG ALMANZA DO Diagnosis: Nausea 1 every 4 - 6 hours as needed nausea Last Documented On 09/17/2023 6:31PM By LIANG ALMANZA DO ; [facility] Lagevrio 200 MG Oral Capsule 03/19/2023 - 03/24/2023 Newton thomasder: LIANG ALMANZA DO Diagnosis: COVID-19 4 po bid x 5 Last Documented On 03/19/2023 12:59PM By LIANG ALMANZA DO ; [facility] buPROPion HCl ER (XL) 150 MG Oral Tablet Extended Release 24 Hour 03/17/2023 - 06/15/2023 Provider: LIANG ALMANZA DO Diagnosis: Anxiety disorder , unspecified TAKE 1 TABLET BY MOUTH EVERY DAY IN THE MORNING Last Documented On 06/15/2023 2:58PM By LIANG ALMANZA DO ; [facility] Methylphenidate HCl 5 MG Oral Tablet 02/21/2023 - 04/11/2023 Provider: TIFF BRONSON [facility] Diagnosis: Attn-defct hyperactivity disorder, predom inattentive type 1 pm work days Last Documented On 04/11/2023 10:26AM By LIANG ALMANZA DO ; [facility] Methylphenidate HCl ER 20 MG Oral Tablet Extended Release 02/21/2023 - 04/11/2023 Provider: TIFF BRONSON [facility] Diagnosis: Attn-defct hyperactivity disorder, predom inattentive type One tablet daily am Last Documented On 04/11/2023 10:30AM By LIANG ALMANZA DO ; [facility] Methylphenidate HCl 5 MG Oral Tablet 01/17/2023 - 02/21/2023 Provider: LIANG ALMANZA DO Diagnosis: Attn-defct hyperactivity disorder, predom inattentive type 1 pm work days Last Documented On 3 11:38AM By Tiff Bronson [facility] ; [facility] Methylphenidate HCl ER 20 MG Oral Tablet Extended Release 01/17/2023 - 02/21/2023 Provider: LIANG ALMANZA DO Diagnosis: Attn-defct hyperactivity disorder, predom inattentive type One tablet daily am Last Documented On 3 11:37AM By Tiff Bronosn [facility] ; [facility] buPROPion HCl ER (XL) 150 MG Oral Tablet Extended Release 24 Hour 12/19/2022 - 03/17/2023 Provider: LIANG ALMANZA DO Diagnosis: Anxiety disorder , unspecified TAKE 1 TABLET BY MOUTH EVERY DAY IN THE MORNING Last Documented On 03/17/2023 9:05AM By LIANG ALMANZA DO ; [facility] ALPRAZolam 0.25 MG Oral Tablet 12/14/2022 - 03/27/2023 Provider: LIANG ALMANZA DO Diagnosis: Anxiety disorder , unspecified TAKE 1/4-1 TABLET BY MOUTH E VERY 8-12 HOURS NEEDED FOR ANXIETY. MUST LAST AT LEAST 30 DAYS Last Documented On 03/27/2023 1:40PM By LIANG ALMANZA DO ; [facility] Methylphenidate HCl ER 20 MG Oral Tablet Extended Release 12/14/2022 - 01/17/2023 Provider: LIANG ALMANZA DO Diagnosis: Attn-defct hyperactivity disorder, predom inattentive type One tablet daily am Last Documented On 01/17/2023 2:50PM By LIANG ALMANZA DO ; [facility] Methylphenidate HCl 5 MG Oral Tablet 12/14/2022 - 01/17/2023 Provider: LIANG ALMANZA DO Diagnosis: Attn-defct hyperactivity disorder, predom inattentive type 1 pm work days Last Documented On 01/17/2023 2:51PM By LIANG ALMANZA DO ; [facility] Escitalopram Oxalate 20 MG Oral Tablet 12/12/2022 - 06/07/2023 Provider: LIANG ALMANZA DO Diagnosis: Major depressive disorder, single episode, unspecified TAKE 1 TABLET BY MOUTH EVERY DAY Last Documented On 06/07/2023 12:05PM By LIANG ALMANZA DO ; [facility] Methylphenidate HCl 5 MG Oral Tablet 11/08/2022 - 12/14/2022 Provider: LIANG ALMANZA DO Diagnosis: Attn-defct hyperactivity disorder, predom inattentive type 1 pm work days Last Documented On 12/14/2022 3:34PM By LIANG ALMANZA DO ; [facility] Methylphenidate HCl ER 20 MG Oral Tablet Extended Release 11/03/2022 - 12/14/2022 Provider: LIANG ALMANZA DO Diagnosis: Attn-defct hyperactivity disorder, predom inattentive type One tablet daily am Last Documented On 12/14/2022 3:34PM By LIANG ALMANZA DO ; [facility] Albuterol Sulfate HFA 108 (9 0 Base) MCG/ACT Inhalation Aerosol Solution 10/19/2022 - 07/11/2023 Provider: LIANG ALMANZA DO Diagnosis: COVID-19 INHALE 1-2 PUFFS INTO THE STACIA NGS EVERY 4-12 HRS NEEDED FOR WHEEZE Last Documented On 07/11/2023 9:28AM By LIANG ALMANZA DO ; [facility] Methylphenidate HCl ER 20 MG Oral Tablet Extended Release 10/05/2022 - 11/03/2022 Provider: LIANG ALMANZA DO Diagnosis: Attn-defct hyperactivity disorder, predom inattentive type One tablet daily am Last Documented On 11/03/2022 12:43PM By LIANG ALMANZA DO ; [facility] Methylphenidate HCl 5 MG Oral Tablet 10/05/2022 - 11/08/2022 Provider: LIANG ALMANZA DO Diagnosis: Attn-defct hyperactivity disorder, predom inattentive type 1 pm work days Last Documented On 11/08/2022 1:09PM By LIANG ALMANZA DO ; [facility] buPROPion HCl ER (XL) 150 MG Oral Tablet Extended Release 24 Hour 09/18/2022 - 12/19/2022 Provider: LIANG ALMANZA DO Diagnosis: Anxiety disorder , unspecified 1 Capsule every morning Last Documented On 12/19/2022 10:24AM By LIANG ALMANZA DO ; [facility] ALPRAZolam 0.25 MG Oral Tablet 09/16/2022 - 12/14/2022 Provider: LIANG ALMANZA DO Diagnosis: Anxiety disorder , unspecified TAKE 1/4-1 TABLET BY MOUTH E VERY 8-12 HOURS NEEDED FOR ANXIETY. MUST LAST AT LEAST 30 DAYS Last Documented On 12/14/2022 3:32PM By LIANG ALMANZA DO ; [facility] Methylphenidate HCl 5 MG Oral Tablet 08/29/2022 - 10/05/2022 Provider: LIANG ALMANZA DO Diagnosis: Attn-defct hyperactivity disorder, predom inattentive type 1 pm work days Last Documented On 10/05/2022 12:34PM By LIANG ALMANZA DO ; [facility] Methylphenidate HCl ER 20 MG Oral Tablet Extended Release 08/29/2022 - 10/05/2022 Provider: LIAGN ALMANZA DO Diagnosis: Attn-defct hyperactivity disorder, predom inattentive type One tablet daily am Last Documented On 10/05/2022 12:34PM By LIANG ALMANZA DO ; [facility] ALPRAZolam 0.25 MG Oral Tablet 08/14/2022 - 09/16/2022 Provider: LIANG ALMANZA DO Diagnosis: Anxiety disorder , unspecified TAKE 1/4-1 TABLET BY MOUTH E VERY 8-12 HOURS NEEDED FOR ANXIETY. MUST LAST AT LEAST 30 DAYS Last Documented On 09/16/2022 3:11PM By LIANG ALMANZA DO ; [facility] ALPRAZolam 0.25 MG Oral Tablet 08/09/2022 - 08/14/2022 Provider: SAIDA WOOD PA-C Diagnosis: Anxiety disorder , unspecified TAKE 1/4-1 TABLET BY MOUTH E VERY 8-12 HOURS NEEDED FOR ANXIETY. MUST LAST AT LEAST 30 DAYS Last Documented On 08/14/2022 12:50PM By LIANG ALMANZA DO ; [facility] Albuterol Sulfate HFA 108 (9 0 Base) MCG/ACT Inhalation Aerosol Solution 08/09/2022 - 10/19/2022 Provider: LIANG ALMANZA DO Diagnosis: COVID-19 INHALE 1-2 PUFFS INTO THE STACIA NGS EVERY 4-12 HRS NEEDED FOR WHEEZE Last Documented On 10/19/2022 9:48AM By LIANG ALMANZA DO ; [facility] Methylphenidate HCl 5 MG Oral Tablet 07/26/2022 - 08/29/2022 Provider: LIANG ALMANZA DO Diagnosis: Attn-defct hyperactivity disorder, predom inattentive type 1 pm work days Last Documented On 08/29/2022 1:16PM By LIANG ALMANZA DO ; [facility] Methylphenidate HCl ER 20 MG Oral Tablet Extended Release 07/26/2022 - 08/29/2022 Provider: LIANG ALMANZA DO Diagnosis: Attn-defct hyperactivity disorder, predom inattentive type One tablet daily am Last Documented On 08/29/2022 1:15PM By LIANG ALMANZA DO ; [facility] Methylphenidate HCl 5 MG Oral Tablet 06/27/2022 - 07/25/2022 Provider: FAUSTINO SHELTON PA-C Diagnosis: Attn-defct hyperactivity disorder, predom inattentive type 1 pm work days Last Documented On 07/26/2022 8:54AM By LIANG ALMANZA DO ; [facility] Methylphenidate HCl ER 20 MG Oral Tablet Extended Release 06/27/2022 - 07/25/2022 Provider: LIANG ALMANZA DO Diagnosis: Attn-defct hyperactivity disorder, predom inattentive type One tablet daily am Last Documented On 07/26/2022 8:54AM By LIANG ALMANZA DO ; [facility] Methylphenidate HCl 5 MG Oral Tablet 06/20/2022 - 06/27/2022 Provider: LIANG ALMANZA DO Diagnosis: Attn-defct hyperactivity disorder, predom inattentive type 1 pm work days Last Documented On 5:08PM By FAUSTINO SHELTON PA-C ; [facility] Methylphenidate HCl ER 20 MG Oral Tablet Extended Release 06/20/2022 - 06/27/2022 Provider: LIANG ALMANZA DO Diagnosis: Attn-defct hyperactivity disorder, predom inattentive type One tablet daily am Last Documented On 06/27/2022 1:42PM By LIANG ALMANZA DO ; [facility] buPROPion HCl ER (XL) 150 MG Oral Tablet Extended Release 24 Hour 06/15/2022 - 09/18/2022 Provider: LIANG ALMANZA DO Diagnosis: Anxiety disorder , unspecified 1 Capsule every morning Last Documented On 09/18/2022 9:46AM By LIANG ALMANZA DO ; [facility] Methylphenidate HCl 5 MG Oral Tablet 05/19/2022 - 06/20/2022 Provider: LIANG ALMANZA DO Diagnosis: Attn-defct hyperactivity disorder, predom inattentive type 1 pm work days Last Documented On 06/20/2022 5:53PM By LIANG ALMANZA DO ; [facility] Methylphenidate HCl ER 20 MG Oral Tablet Extended Release 05/19/2022 - 06/20/2022 Provider: LIANG ALMANZA DO Diagnosis: Attn-defct hyperactivity disorder, predom inattentive type One tablet daily am Last Documented On 06/20/2022 5:52PM By LIANG ALMANZA DO ; [facility] Methylphenidate HCl 5 MG Oral Tablet 04/18/2022 - 05/19/2022 Provider: LIANG ALMANZA DO Diagnosis: Attn-defct hyperactivity disorder, predom inattentive type 1 pm work days Last Documented On 05/19/2022 3:57PM By LIANG ALMANZA DO ; [facility] Methylphenidate HCl ER 20 MG Oral Tablet Extended Release 04/18/2022 - 05/19/2022 Provider: LIANG ALMANZA DO Diagnosis: Attn-defct hyperactivity disorder, predom inattentive type One tablet daily am Last Documented On 05/19/2022 3:50PM By LIANG ALMANZA DO ; [facility] Methylphenidate HCl ER 20 MG Oral Tablet Extended Release 03/17/2022 - 04/18/2022 Provider: LIANG ALMANZA DO Diagnosis: Attn-defct hyperactivity disorder, predom inattentive type One tablet daily am Last Documented On 04/18/2022 1:19PM By LIANG ALMANZA DO ; [facility] buPROPion HCl ER (XL) 150 MG Oral Tablet Extended Release 24 Hour 03/07/2022 - 06/15/2022 Provider: LIANG ALMANZA DO Diagnosis: Anxiety disorder , unspecified TAKE 1 TABLET BY MOUTH EVERY DAY IN THE MORNING Last Documented On 06/15/2022 12:14PM By LIANG ALMANZA DO ; [facility] Methylphenidate HCl ER 20 MG Oral Tablet Extended Release 02/14/2022 - 03/17/2022 Provider: LIANG ALMANZA DO Diagnosis: Attn-defct hyperactivity disorder, predom inattentive type One tablet daily am Last Documented On 03/17/2022 3:30PM By LIANG ALMANZA DO ; [facility] Methylphenidate HCl ER 20 MG Oral Tablet Extended Release 01/11/2022 - 02/14/2022 Provider: LIANG ALMANZA DO Diagnosis: Attn-defct hyperactivity disorder, predom inattentive type One tablet daily am Last Documented On 02/14/2022 10:53AM By LIANG ALMANZA DO ; [facility] Escitalopram Oxalate 20 MG Oral Tablet 12/12/2021 - 12/12/2022 Provider: LIANG ALMANZA DO Diagnosis: Major depressive disorder, single episode, unspecified TAKE 1 TABLET BY MOUTH EVERY DAY Last Documented On 12/12/2022 9:51AM By LIANG ALMANZA DO ; [facility] Methylphenidate HCl ER 20 MG Oral Tablet Extended Release 12/12/2021 - 01/11/2022 Provider: LIANG ALMANZA DO Diagnosis: Attn-defct hyperactivity disorder, predom inattentive type One tablet daily am Last Documented On 01/11/2022 10:12AM By LIANG ALMANZA DO ; [facility] Methylphenidate HCl 5 MG Oral Tablet 12/12/2021 - 04/18/2022 Provider: LIANG ALMANZA DO Diagnosis: Attn-defct hyperactivity disorder, predom inattentive type 1 pm work days Last Documented On 04/18/2022 1:20PM By LIANG ALMANZA DO ; [facility] buPROPion HCl ER (XL) 150 MG Oral Tablet Extended Release 24 Hour 12/12/2021 - 03/07/2022 Provider: LIANG ALMANZA DO Diagnosis: Anxiety disorder , unspecified TAKE 1 TABLET BY MOUTH EVERY DAY IN THE MORNING Last Documented On 03/07/2022 3:03PM By Johann Blandon ; [facility] ALPRAZolam 0.25 MG Oral Tablet 12/12/2021 - 08/09/2022 Provider: LIANG ALMANZA DO Diagnosis: Anxiety disorder , unspecified TAKE 1/4-1 TABLET BY MOUTH E VERY 8-12 HOURS NEEDED FOR ANXIETY. MUST LAST AT LEAST 30 DAYS Last Documented On 4:31PM By Saida Wood PA-C ; [facility] ALPRAZolam 0.25 MG Oral Tablet 11/14/2021 - 12/12/2021 Provider: LIANG ALMANZA DO Diagnosis: Anxiety disorder , unspecified TAKE 1/4-1 TABLET BY MOUTH E VERY 8-12 HOURS NEEDED FOR ANXIETY. MUST LAST AT LEAST 30 DAYS Last Documented On 12/12/2021 5:00PM By LIANG ALMANZA DO ; [facility] Methylphenidate HCl ER 20 MG Oral Tablet Extended Release 11/10/2021 - 12/12/2021 Provider: LIANG ALMANZA DO Diagnosis: Attn-defct hyperactivity disorder, predom inattentive type One tablet daily am Last Documented On 12/12/2021 4:59PM By LIANG ALMANZA DO ; [facility] Methylphenidate HCl ER 20 MG Oral Tablet Extended Release 10/11/2021 - 11/10/2021 Provider: LIANG ALMANZA DO Diagnosis: Attn-defct hyperactivity disorder, predom inattentive type One tablet daily am Last Documented On 11/10/2021 9:53AM By LIANG ALMANZA DO ; [facility] Methylphenidate HCl 5 MG Oral Tablet 09/30/2021 - 12/12/2021 Provider: LIANG ALMANZA DO Diagnosis: Attn-defct hyperactivity disorder, predom inattentive type 1 pm work days Last Documented On 12/12/2021 4:58PM By LIANG ALMANZA DO ; [facility] buPROPion HCl ER (XL) 150 MG Oral Tablet Extended Release 24 Hour 09/13/2021 - 12/12/2021 Provider: LIANG ALMANZA DO Diagnosis: Anxiety disorder , unspecified TAKE 1 TABLET BY MOUTH EVERY DAY IN THE MORNING Last Documented On 12/12/2021 4:58PM By LIANG ALMANZA DO ; [facility] Escitalopram Oxalate 20 MG Oral Tablet 09/13/2021 - 12/12/2021 Provider: LIANG ALMANZA DO Diagnosis: Major depressive disorder, single episode, unspecified TAKE 1 TABLET BY MOUTH EVERY DAY Last Documented On 12/12/2021 4:59PM By LIANG ALMANZA DO ; [facility] Methylphenidate HCl ER 20 MG Oral Tablet Extended Release 09/13/2021 - 10/11/2021 Provider: LIANG ALMANZA DO Diagnosis: Attn-defct hyperactivity disorder, predom inattentive type One tablet daily am Last Documented On 10/11/2021 12:14PM By LIANG ALMANZA DO ; [facility] ALPRAZolam 0.25 MG Oral Tablet 09/13/2021 - 11/14/2021 Provider: LIANG ALMANZA DO Diagnosis: Anxiety disorder , unspecified TAKE 1/4-1 TABLET BY MOUTH E VERY 8-12 HOURS NEEDED FOR ANXIETY. MUST LAST AT LEAST 30 DAYS Last Documented On 11/14/2021 11:02AM By LIANG ALMANZA DO ; [facility] Methylphenidate HCl ER (CD) 10 MG Oral Capsule Extended Release 08/15/2021 - 11/14/2021 Provider: LIANG ALMANZA DO Diagnosis: Attn-defct hyperactivity disorder, predom inattentive type 1 Capsule every morning Last Documented On 11/14/2021 10:45AM By Lilliana GALINDO ; [facility] ALPRAZolam 0.25 MG Oral Tablet 07/20/2021 - 09/13/2021 Provider: LIANG ALMANZA DO Diagnosis: Anxiety disorder , unspecified TAKE 1/4-1 TABLET BY MOUTH E VERY 8-12 HOURS NEEDED FOR ANXIETY. MUST LAST AT LEAST 30 DAYS Last Documented On 09/13/2021 5:58PM By LIANG ALMANZA DO ; [facility] Azithromycin 250 MG Oral Tablet 06/28/2021 - 08/15/2021 Provider: ILANG ALMANZA DO Diagnosis: Otitis media, unspecified, right ear as directed 2 PILLS DAY 1 , 1 PILL DAY 2-5 WITH FOOD Last Documented On 08/15/2021 11:01AM By Lilliana GALINDO ; [facility] Escitalopram Oxalate 20 MG Oral Tablet 06/14/2021 - 09/13/2021 Provider: LIANG ALMANZA DO Diagnosis: Major depressive disorder, single episode, unspecified TAKE 1 TABLET BY MOUTH EVERY DAY Last Documented On 09/13/2021 5:56PM By LIANG ALMANZA DO ; [facility] buPROPion HCl ER (XL) 150 MG Oral Tablet Extended Release 24 Hour 06/14/2021 - 09/13/2021 Provider: LIANG ALMANZA DO Diagnosis: Anxiety disorder , unspecified TAKE 1 TABLET BY MOUTH EVERY DAY IN THE MORNING Last Documented On 09/13/2021 5:56PM By LIANG ALMANZA DO ; [facility] ALPRAZolam 0.25 MG Oral Tablet 06/14/2021 - 07/20/2021 Provider: LIANG ALMANZA DO Diagnosis: Anxiety disorder , unspecified TAKE 1/4-1 TABLET BY MOUTH E VERY 8-12 HOURS NEEDED FOR ANXIETY Last Documented On 07/20/2021 9:39PM By LIANG ALMANZA DO ; [facility] Medrol 4 MG Oral Tablet Therapy Pack 05/31/2021 - 06/28/2021 Provider: LIANG ALMANZA DO Diagnosis: Neuralgia and ne uritis, unspecified as directed Last Documented On 06/28/2021 6:39PM By Lilliana GALINDO ; [facility] buPROPion HCl ER (XL) 150 MG Oral Tablet Extended Release 24 Hour 04/04/2021 - 06/14/2021 Provider: LIANG ALMANZA DO Diagnosis: Anxiety disorder , unspecified 1 Capsule every morning Last Documented On 06/14/2021 8:09PM By LIANG ALMANZA DO ; [facility] buPROPion HCl ER (SR) 100 MG Oral Tablet Extended Release 12 Hour 03/30/2021 - 04/04/2021 Provider: LIANG ALMANZA DO Diagnosis: Major depressive disorder, single episode, unspecified One tablet daily Last Documented On 04/04/2021 11:22AM By LIANG ALMANZA DO ; [facility] ALPRAZolam 0.25 MG Oral Tablet 03/21/2021 - 06/14/2021 Provider: LIANG ALMANZA DO Diagnosis: Anxiety disorder , unspecified TAKE 1/4-1 TABLET BY MOUTH E VERY 8-12 HOURS NEEDED FOR ANXIETY Last Documented On 06/14/2021 7:59PM By LIANG ALMANZA DO ; [facility] Escitalopram Oxalate 20 MG Oral Tablet 03/21/2021 - 06/14/2021 Provider: LIANG ALMANZA DO Diagnosis: Major depressive disorder, single episode, unspecified TAKE 1 TABLET BY MOUTH EVERY DAY Last Documented On 06/14/2021 8:10PM By LIANG ALMANZA DO ; [facility] ALPRAZolam 0.25 MG Oral Tablet 02/08/2021 - 03/21/2021 Provider: LIANG ALMANZA DO Diagnosis: TAKE 1/4-1 TABLET BY MOUTH E VERY 8-12 HOURS NEEDED FOR ANXIETY Last Documented On 03/21/2021 3:12PM By LIANG ALMANZA DO ; [facility] ProAir HFA 108 (90 Base) MCG /ACT Inhalation Aerosol Solution 01/13/2021 - 08/09/2022 Provider: LIANG BAUTISTA DO Diagnosis: COVID-19 1-2 puff q4-12 hours prn wheeze Last Documented On 3:51PM By ALTA DANIELSON Harry ; [facility] Albuterol Sulfate 2.5 MG/0.5ML Inhalation Nebulization solution 01/13/2021 - 09/13/2021 Provider: LIANG ALMANZA DO Diagnosis: Dyspnea, unspeci fied 1 every 6 hours as needed Last Documented On 09/13/2021 10:42AM By Lilliana GALINDO ; [facility] ALPRAZolam 0.25 MG Oral Tablet 01/12/2021 - 02/08/2021 Provider: LIANG ALMANZA DO Diagnosis: Anxiety disorder , unspecified TAKE 1/4-1 TABLET BY MOUTH E VERY 8-12 HOURS NEEDED FOR ANXIETY Last Documented On 02/08/2021 7:23PM By LIANG ALMANZA DO ; [facility] Escitalopram Oxalate 20 MG Oral Tablet 12/10/2020 - 03/21/2021 Provider: LIANG ALMANZA DO Diagnosis: Major depressive disorder, single episode, unspecified TAKE 1 TABLET BY MOUTH EVERY DAY Last Documented On 03/21/2021 3:11PM By LIANG ALMANZA DO ; [facility] ALPRAZolam 0.25 MG Oral Tablet 12/01/2020 - 01/12/2021 Provider: LIANG ALMANZA DO Diagnosis: Anxiety disorder , unspecified TAKE 1/4-1 TAB EVERY 8-12 HO URS NEEDED FOR ANXIETY Last Documented On 01/12/2021 12:18PM By LIANG ALMANZA DO ; [facility] ALPRAZolam 0.25 MG Oral Tablet 10/22/2020 - 12/01/2020 Provider: LIANG ALMANZA DO Diagnosis: Anxiety disorder , unspecified TAKE 1/4-1 TAB EVERY 8-12 HO URS NEEDED FOR ANXIETY Last Documented On 12/01/2020 2:34PM By LIANG ALMANZA DO ; [facility] Escitalopram Oxalate 20 MG O ral Tablet 09/15/2020 - 12/10/2020 Provider: LIANG AMLANZA DO Diagnosis: TAKE 1 TABLET BY MOUTH EVERY DAY Last Documented On 12/10/2020 2:49PM By LIANG ALMANZA DO ; [facility] ALPRAZolam 0.25 MG Oral Tablet 08/19/2020 - 10/22/2020 Provider: LIANG ALMANZA DO Diagnosis: Anxiety disorder , unspecified as directed 1/4 to 1 q 8 to 12 hrs prn anxiety Last Documented On 10/22/2020 4:07PM By LIANG ALMANZA DO ; [facility] Lexapro 20 MG Oral Tablet 06/23/2020 - 09/15/2020 Prov ider: LIANG ALMANZA DO Diagnosis: Take one tab daily Last Documented On 09/15/2020 4:26PM By LIANG ALMANZA DO ; [facility] ALPRAZolam 0.25 MG Oral Tablet 06/14/2020 - 08/19/2020 Provider: LIANG ALMANZA DO Diagnosis: Anxiety disorder , unspecified as directed /4 to 1 q 8 to 12 hrs prn anxiety Last Documented On 08/19/2020 2:03PM By LIANG ALMANZA DO ; [facility] Lexapro 10 MG Oral Tablet 05/05/2020 - 06/23/2020 Provider: LIANG ALMANZA DO Diagnosis: Major depressive disorder, single episode, unspecified One tablet daily Last Documented On 06/23/2020 9:05AM By Meredith Mcgrath LPN ; [facility] ALPRAZolam 0.25 MG Oral Tablet 04/09/2020 - 06/14/2020 Provider: LIANG ALMANZA DO Diagnosis: Anxiety disorder , unspecified as directed 1/4 to 1 q 8 to 12 hrs prn anxiety Last Documented On 06/14/2020 8:25AM By LIANG ALMANZA DO ; [facility] Lexapro 10 MG Oral Tablet 04/09/2020 - 05/05/2020 Provider: LIANG ALMANZA DO Diagnosis: Major depressive disorder, single episode, unspecified One tablet daily Last Documented On 05/05/2020 1:49PM By ANDRES HURTADO ; [facility] traMADol HCl 50 MG Oral Tablet 11/28/2019 - 04/09/2020 Provider: LIANG ALMANZA DO Diagnosis: Calculus of gall bladder w chronic cholecyst w/o obstruction 1 every 6 hours as needed Last Documented On 04/09/2020 10:24AM By Concepción GALINDO ; [facility] Albuterol Sulfate 2.5 MG/0.5 ML Inhalation Nebulization solution 11/25/2019 - 01/13/2021 Provider: Diagnosis: Last Documented On 01/13/2021 3:24PM By LIANG ALMANZA DO ; [facility] Bactrim DS 800-160 MG Oral Tablet 01/04/2019 - 11/25/2019 Provider: LIANG ALMANZA DO Diagnosis: Ingrowing nail One tablet twice a day Last Documented On 11/25/2019 10:07AM By PHUONG ; [facility] Nexplanon 68 MG Subcutaneous Implant 12/23/2018 - 110 05/2021 Provider: Diagnosis: Last Documented On 03/07/2022 2:42PM By Lilliana GALINDO ; [facility] Fluticasone Propionate 50 MCG/ACT NA SUSP 10/25/2010 - 12/19/2017 Provider: DREA Corey Diagnosis: LABYRINTHITIS NO S 2 sprays each nostril qd Last Documented On 12/19/2017 10:10AM By PETER GALINDO ; [facility] Meclizine HCl 25 MG OR TABS 10/25/2010 - 12/19/2017 Provider: DREA Corey Diagnosis: LABYRINTHITIS NO S prn for dizziness Last Documented On 12/19/2017 10:10AM By PETER GALINDO ; [facility] Nystatin 175379 UNIT/GM EX CREA 07/16/2009 - 8 Provider: DREA MCGUIRE PA-C Diagnosis: for 14-28 days Last Documented On 12/19/2017 10:10AM By PETER GALINDO ; [facility] Augmentin 875-125 MG OR TABS 07/16/2009 - 12/19/2017 Provider: DREA Corey Diagnosis: Inflam Disease O f Breast Last Documented On 12/19/2017 10:10AM By PETER GALINDO ; [facility] NexIUM 40 MG OR CPDR 07/01/2008 - 12/19/2017 Provider: Diagnosis: Last Documented On 12/19/2017 10:10AM By PETER GALINDO ; [facility] Medications Administered Includes: Administered Medications in patient's chart No Administered Medications Recorded Vital Signs Includes: Vital Signs from 06/28/2023 through 06/28/2024 Vital Name 08/24/2023 10:54A 07/17/2023 04: 23P Blood Pressure Sitting L 122/80 Pulse Rate-Sitting (bpm) 71 72 Respiration Rate (breaths/min) 20 20 Height (in) 61.5 61.5 Weight (lb) 244 241.25 Body Mass Index 45.4 44.8 Body Surface Area (m2) 2.1 2.1 Oxygen Saturation (%) 97 97 Blood Pressure Sitting R 122/82 Last Documented: On 08/24/2023 10:56A M ; [facility] On 07/17/2023 4:23PM ; [facility] Results Includes: Results from 06/28/2023 through 06/28/2024 No Results Recorded For Specified Dates History of Present Illness History of Present Illness not supported for this document type No History of Present Illness Recorded Social History Description Last Updated 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 08/24/2023 Last Documented On 4 7:44AM ; [facility] Not recovering from substance abuse 08/05 Last Documented On 4 7:44AM ; [facility] Tobacco non-user 07/25/2022 Last Documented On 3 8:11PM ; [facility] Using marijuana 02/08/2021 Last Documented On 1 9:48PM ; [facility] Smoking Status Unknown Medical History Includes: Medical History in patient's chart Description Last Updated LMP: nexplanon 07/25/2022 Last Documented On 3 8:11PM ; [facility] Surgery 2001- KNEE SURGERY 11/23/2008 Last Documented On 9 5:12PM ; [facility] Family History Includes: Family History in patient's chart Description Last Updated Family history of asthma 09/13/2021 Last Documented On 2 10:09PM ; [facility] Family history of diabetes mellitus 09/04 Last Documented On 2 10:09PM ; [facility] Family history of systemic hypertension 09/13/2021 Last Documented On 2 10:09PM ; [facility] Family history reviewed - unchanged sinc e last visit 01/03/2019 Last Documented On 9 4:17PM ; [facility] Father HIGH BLOOD PRESSURE 11/23/2008 Last Documented On 9 5:12PM ; [facility] Review of Systems Review of Systems not supported for this document type No Review of Systems Recorded Mental Status No Mental Status Recorded Functional Status No Functional Status Recorded Physical Exam Physical Exam not supported for this document type No Physical Exam Recorded Immunizations Includes: Immunizations in patient's chart Vaccine Dose # Date Site Reaction(s) Status Source COVID-19 [facility] 1 07/09/2020 Complete (Re ported) Patient Last Documented On 1 2:23PM ; [facility] Influenza (Quadrivalent) PF 0.5ml 1 03/07/2022 Left Deltoid Complete (Administered) [facility] Last Documented On 2 3:32PM ; [facility] 1 07/09/2020 Complete (Reported) P atient Last Documented On 2 3:03PM ; [facility] Allergies Includes: Active, inactive, and resolved Allergies No Known Allergies Encounters Includes: Encounters from 06/28/2023 through 06/28/2024 Encounter Provider Location Date Check-In Time Check-Out Time Diagnosis CHECK UP LIANG ALMANZA [facility] 024 08/24/2023 2:00PM 08/24/2023 11:59PM CHECK UP LIANG ALMANZA [facility] 024 10:39AM 11:08AM Anxiety Disorder Mixed,Major Depression Recurrent Moderate with Anxiety * PHONE CALL LIANG ALMANZA DO 024 07/17/2023 11:40AM 07/17/2023 11:59PM CHECK UP LIANG ALMANZA DO [facility] 024 4:21PM 4:57PM Major Depression Recurrent Moderate with Anxiety,Anxiety Disorder Mixed,Adhd, Predominantly Inattentive Type,Ovarian Cyst Other Insurance Includes: Active Insurance Policies Plan Name Member ID Group # Subscriber Relationship Effect palmer Dates 1 - [employer] [id number] BRENDA GARCÍA Self 11/04/2020 - Unknown Clinical Notes Includes: Signed Clinical Notes starting from 05/26/2022 * Progress note Date Encounter Last Documented by 08/24/2023 CHECK UP Last documented on 08/26/2023; 7:44 AM, LIANG ALMANZA DO; [facility] Active Problems & Conditions - [...] following service on behalf of Dr. Liang Almanza, D.O. Practice Management Use of tobacco assessment performed Review of medications documented. 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 Please advise. pt phone # for return call: Date/Initials: 07/26/23-. Current Medication - Albuterol Sulfate HFA 108 [...] THE MORNING, 30 days, 0 refills - EpiPen 2-Cory 0.3MG/0.3ML Injection Solution Auto-injector 0.3 MG/0.3ML as directed Given to her by the ER, 0 days, 0 refills - Escitalopram Oxalate 20 MG Oral Tablet TAKE 1 TABLET BY MOUTH EVERY DAY, 30 days, 0 refills - Flonase 50 MCG/ACT [...] nexplanon. Social History Tobacco use: Tobacco non-user. Drug Use: Using marijuana. 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 History of Present Illness BRENDA GARCÍA is a 32 year old female. - Allergy list reviewed - Medication list reviewed - No systemic symptoms - Not feeling tired or poorly - No head symptoms - No neck symptoms - No eye symptoms - No otolaryngeal symptoms - No cardiovascular symptoms - No pulmonary symptoms - No gastrointestinal symptoms - Normal appetite - No genitourinary symptoms - No musculoskeletal symptoms - Anxiety - No depression - No initial insomnia - No middle-night awakening - Not thinking about suicide - No homicidal thoughts - No skin symptoms The patient is a pleasant 32-year-old female who presents today for a 6-month follow-up. She is feeling fine today. She reports feeling sad due to a lot of things going on in her life. She reports sound sleep patterns. With respect to her energy, it is better than prior. She has been taking bupropion XL 150 mg once daily and escitalopram 20 mg once daily and has been tolerating them well. She has been taking alprazolam 0.25 mg more lately as she is trying to quit marijuana. She denies having thoughts of hurting herself or others. She denies any crying spells or angry spells. For ADHD, she has been taking Ritalin 20 mg once daily at AM and 5 mg at PM on workdays. She reports that the current dose of medication is helping her focus. She smokes pot most days, if not daily. She went to the ER on 07/14/2023 for vomiting and was found to have a right ovarian cyst. She started vomiting on Sunday night. She has not had any vomiting since then. She denies any vision changes, headaches, dizziness, or falls. She denies any chest pain, palpitations, shortness of breath, changes in bowel movements such as black or tarry stools, or bladder problems. Current Medication - Albuterol Sulfate HFA 108 (90 Base) MCG/ACT Inhalation Aerosol Solution INHALE 1-2 PUFFS INTO THE LUNGS EVERY 4-12 HRS NEEDED FOR WHEEZE, 30 days, 2 refills - buPROPion HCl ER (XL) 150 MG Oral Tablet Extended Release 24 Hour TAKE 1 TABLET BY MOUTH EVERY DAY IN THE MORNING, 30 days, 0 refills - EpiPen 2-Cory 0.3MG/0.3ML Injection Solution Auto-injector 0.3 MG/0.3ML as directed Given to her by the ER, 0 days, 0 refills - Escitalopram Oxalate 20 MG Oral Tablet TAKE 1 TABLET BY MOUTH EVERY DAY, 30 days, 0 refills - Flonase 50 MCG/ACT [...] nexplanon. Social History Tobacco use: Tobacco non-user. Drug Use: Using marijuana. Allergies - No Known Allergies Family History Father HIGH BLOOD PRESSURE Family history reviewed - unchanged since last visit Systemic hypertension Asthma Diabetes mellitus Review Of Systems Systemic: No fever and no night sweats. Head: No headache. Neck: No neck pain. Eyes: No vision problems. Otolaryngeal: No nasal discharge and no sore throat. Cardiovascular: No chest pain or discomfort and no palpitations. Pulmonary: No dyspnea. Gastrointestinal: No nausea, no vomiting, and no melena. Genitourinary: No dysuria. Musculoskeletal: No localized joint pain. Neurological: No dizziness and no lightheadedness. Psychological: Anxiety. No high irritability, no emotional hypersensitivity, and no sleep disturbances. No change in thought patterns and no lack of balance between leisure activities and work. Skin: No rash. Physical Findings - Vitals taken 07/17/2023 04:23 pm BP-Sitting R 122/82 mmHg Pulse Rate-Sitting 72 bpm Respiration Rate 20 per min Height 61.5 in Weight 241 lbs 4 oz Body Mass Index 44.8 kg/m2 Body Surface Area 2.1 m2 Oxygen Saturation 97 % General Appearance: - [...] abnormalities. Attitude: - Not abnormal. Mood: - Dysthymic. Affect: - Normal. Thought Processes: - Not impaired. Thought Content: - Revealed no impairment. Skin: - General appearance was normal. - Color and pigmentation were normal. - No skin lesions. - No rash. Assessment - Other ovarian cyst [N83.299 - Other ovarian cyst, unspecified side] - ADHD, predominantly inattentive type [F90.0 - Attention-deficit hyperactivity disorder, predominantly inattentive type] - Moderate recurrent major depression with anxiety [...] been within normal limits. Her weight is down 2 pounds since the last visit. Plan StartCited - Anxiety disorder, unspecified ALPRAZolam 0.25 MG tablet TAKE 1/4-1 TABLET BY MOUTH EVERY 8-12 HOURS NEEDED FOR ANXIETY. MUST LAST AT LEAST 30 DAYS, 30 days, 0 refills EndCited StartCited - Other Follow-up FOLLOW UP IN 4 WEEKS. EndCited - Continue current medication - Follow-up visit - Patient to call if problem develops PLAN [Use for s.o.a.p. note free text]. Continue present medications, call for refills. Increased bupropion to 150 mg twice daily. She was advised to follow a healthy diet. She was advised to drink plenty of water and stay hydrated. [facility] Other Johann Blandon, scribing the following service on behalf of Dr. Liang Almanza, D.O.
--- OUTSIDE RECORDS SUMMARY | 2024-06-28 17:24 | XMS_ITS | Clinical Summary ---
Author Organization [facility] Address [address] [place] [address] Phone Care Team Providers Care Hand Shaper Name Role Phone LIANG ALMANZA DO Primary Care Provider [phone] Reason for Visit and Chief Complaint * PHONE CALL Problems Includes: Problems addressed during this encounter and other active Problems All Visits Onset Date Resolved Date Provider Condition S tatus Anxiety Disorder Mixed 07/28/2022 LIANG HASSAN DO Active Last Documented On 3 8:10PM ; [facility] Adhd, 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 LIANG ALMANZA DO Active Last Documented On 2 10:05PM ; [facility] 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 05/05/2020 LIANG ALMANZA DO Active Last Documented On 0 1:48PM ; [facility] 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 11/28/2019 LIANG ALMANZA DO Active Last Documented On 0 12:42PM ; [facility] Plan of Treatment No Plan of Treatment Recorded Assessments Includes: Assessments from this encounter No Assessments Recorded Medical Equipment - Implanted Devices Includes: Current Devices No Medical Equipment Recorded Medications Includes: Medications discussed during this encounter and other current Medications New / Renewed during this visit LIANG ALMANZA DO on 07/26/2023 buPROPion HCl ER (XL) 300 MG Oral Tablet Extended Release 24 Hour Provider: LIANG ALMANZA DO 90 day supply: 90 tablet, 0 refills Diagnosis: Anxiety disorder, unspecified One tablet daily Pharmacy: [facility] [address], [id number] - Last Documented On 10/25/2023 12:33PM By LIANG ALMANZA DO ; [facility] Current Medications (continue as prescribed) Escitalopram Oxalate 20 MG Oral Tablet 11/02/2023 Provider: LIANG ALMANZA DO Diagnosis: Major depressive disorder, single episode, unspecified TAKE 1 TABLET BY MOUTH EVERY DAY Last Documented On 11/02/2023 8:41AM By LIANG ALMANZA DO ; [facility] buPROPion HCl ER (XL) 300 MG Oral Tablet Extended Release 24 Hour 10/25/2023 Provider: LIANG ALMANZA DO Diagnosis: Anxiety disorder , unspecified 1 TABLET DAILY Last Documented On 10/25/2023 12:36PM By LIANG ALMANZA DO ; [facility] Methylphenidate HCl ER 20 MG Oral Tablet Extended Release 10/05/2023 Provider: LIANG BORJA DO Diagnosis: Attn-defct hyper activity disorder, predom inattentive type One tablet daily am Last Documented On 10/05/2023 8:25AM By LIANG ALMANZA DO ; [facility] Ondansetron 4 MG Oral Tablet Disintegrating 09/17/2023 Provider: LIANG ALMANZA DO Diagnosis: Nausea 1 every 4 - 6 hours as needed nausea Last Documented On 09/17/2023 6:46PM By LIANG ALMANZA DO ; [facility] ALPRAZolam 0.25 MG Oral Tablet 08/31/2023 Provider: TIFF TURNER [facility] Diagnosis: Anxiety disorder , unspecified TAKE 1/4-1 TABLET BY MOUTH E VERY 8-12 HOURS NEEDED FOR ANXIETY. MUST LAST AT LEAST 30 DAYS Last Documented On 1:24PM By Tiff Turner [facility] ; [facility] buPROPion HCl ER (XL) 150 MG Oral Tablet Extended Release 24 Hour 07/11/2023 Provider: LIANG ALMANZA DO Diagnosis: Anxiety disorder , unspecified TAKE 1 TABLET BY MOUTH EVERY DAY IN THE MORNING Last Documented On 07/11/2023 9:37AM By LIANG ALMANZA DO ; [facility] Albuterol Sulfate HFA 108 (9 0 Base) MCG/ACT Inhalation Aerosol Solution 07/11/2023 Provider: LIANG MCFARLANE DO Diagnosis: COVID-19 INHALE 1-2 PUFFS INTO THE STACIA NGS EVERY 4-12 HRS NEEDED FOR WHEEZE Last Documented On 07/11/2023 9:37AM By LIANG ALMANZA DO ; [facility] Methylphenidate HCl 5 MG Ora l Tablet 04/11/2023 Provider: LIANG ALMANZA DO Diagnosis: Attn-defct hyper activity disorder, predom inattentive type 1 pm work days Last Documented On 04/11/2023 10:34AM By LIANG ALMANZA DO ; [facility] Triamcinolone Acetonide 0.1% External Cream 11/29/2022 Provider: TIFF TURNER [facility] Diagnosis: Dermatitis, unsp ecified apply to affected area 2 omega es daily. do not use for longer than 14 days in a row. Last Documented On 10:38AM By Tiff Turner [facility] ; [facility] Nexplanon 68 MG Subcutaneous Implant 01/06/2022 Prov ider: Diagnosis: Last Documented On 03/07/2022 2:42PM By Lilliana GALINDO ; [facility] Flonase 50 MCG/ACT Nasal Suspension 04/09/2020 Provi harris: Diagnosis: Last Documented On 04/09/2020 10:25AM By Concepción GALINDO ; [facility] ZyrTEC Allergy 10 MG Oral Tablet 04/09/2020 Provider : Diagnosis: Last Documented On 04/09/2020 10:25AM By Concepción GALINDO ; [facility] EpiPen 2-Cory 0.3MG/0.3ML Injection Solution Auto-injec tor 12/19/2017 Provider: Diagnosis: Given to her by the ER Last Documented On 12/19/2017 10:12AM By PETER GALINDO ; [facility] Past Medications on file Benzonatate 100 MG Oral Capsule 04/13/2023 - 3 Provider: LIANG ALMANZA DO Diagnosis: COVID-19 as directed 1-2 q 6 hours prn cough Last Documented On 04/13/2023 2:28PM By LIANG ALMANZA DO ; [facility] Lagevrio 200 MG Oral Capsule 03/19/2023 - 03/24/2023 P rovider: LIANG ALMANZA DO Diagnosis: COVID-19 4 po bid x 5 Last Documented On 03/19/2023 12:59PM By LIANG ALMANZA DO ; [facility] Medications Administered Includes: Administered Medications from this encounter No Administered Medications Recorded Results Includes: Results discussed during this encounter No Results Recorded For Specified Dates History of Present Illness Includes: History of Present Illness from this encounter No History of Present Illness Recorded Social History Description Last Updated Tobacco non-user 07/25/2022 Last Documented On 4 11:40AM ; [facility] Using marijuana 02/08/2021 Last Documented On 4 11:40AM ; [facility] Smoking Status Unknown Medical History Includes: Medical History addressed during this encounter Description Last Updated LMP: nexplanon 07/25/2022 Last Documented On 4 11:40AM ; [facility] Surgery 2000- KNEE SURGERY 11/23/2008 Last Documented On 4 11:40AM ; [facility] Family History Includes: Family History addressed during this encounter Description Last Updated Family history of asthma 09/13/2021 Last Documented On 4 11:40AM ; [facility] Family history of diabetes mellitus 09/04 Last Documented On 4 11:40AM ; [facility] Family history of systemic hypertension 09/13/2021 Last Documented On 4 11:40AM ; [facility] Family history reviewed - unchanged sinc e last visit 01/03/2019 Last Documented On 4 11:40AM ; [facility] Father HIGH BLOOD PRESSURE 11/23/2008 Last Documented On 4 11:40AM ; [facility] Review of Systems Includes: Review of Systems from this encounter No Review of Systems Recorded Mental Status Includes: Mental Status from this encounter No Mental Status Recorded Functional Status Includes: Functional Status from this encounter No Functional Status Recorded Physical Exam Includes: Physical Exam from this encounter No Physical Exam Recorded Allergies Includes: Active Allergies No Known Allergies Encounters Encounter Provider Location Date Check-In Time Check-Out Time Diagnosis * PHONE CALL LIANG ALMANZA DO 07/26/2023 11:40AM 11:59PM Insurance Includes: Active Insurance Policies Plan Name Member ID Group # Subscriber Relationship Effect palmer Dates 1 - [employer] [id number] BRENDA GARCÍA Self 11/04/2020 - Unknown Clinical Notes Includes: Clinical Notes from this encounter * Progress note Date Encounter Last Documented by 07/26/2023 * PHONE CALL Last documented on 07/26/2023; 12:42 PM, LIANG ALMANZA DO; [facility] Active Problems & Conditions - [...]
--- OUTSIDE RECORDS SUMMARY | 2024-06-28 17:24 | XMS_ITS | Clinical Summary ---
Author Organization [facility] Address [address] [place] [address] Phone Care Team Providers Care Manager Alliance Name Role Phone LIANG GILLESPIE DO Primary Care Provider [phone] Reason for Visit and Chief Complaint The Chief Complaint is: Patient is here for an ER f/u after having nonstop vomiting and fingding a cyst on her ovary Problems Includes: Problems addressed during this encounter and other active Problems Current Visit Onset Date Resolved Date Provider Conditio n Status Anxiety Disorder Mixed 07/28/2022 LIANG HASSAN DO Active Last Documented On 3 8:10PM ; [facility] Adhd, 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 LIANG GILLESPIE DO Active Last Documented On 2 10:05PM ; [facility] 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 05/05/2020 LIANG GILLESPIE DO Active Last Documented On 0 1:48PM ; [facility] Past Visits Onset Date Resolved Date Provider Condition Status 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 11/28/2019 LIANG GILLESPIE DO Active Last Documented On 0 12:42PM ; [facility] Plan of Treatment - Continue current medication - Last Documented On 07/21/2023 3:39PM ; [facility] - Follow-up visit - Last Documented On 07/21/2023 3:39PM ; [facility] - Patient to call if problem develops - Last Documented On 07/21/2023 3:39PM ; [facility] [Use for s.o.a.p. note free text]. - Last Documented On 07/21/2023 3:39PM ; [facility] Continue present medications, call for refills. Increased bupropion to 150 mg twice daily. She was advised to follow a healthy diet. She was advised to drink plenty of water and stay hydrated. 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 - Attention-deficit hyperactivity disorder, predominantly inattentive type] - Last Documented On 07/21/2023 3:39PM ; [facility] - Moderate recurrent major depression with anxiety [F41.9 - Anxiety disorder, unspecified] - Last Documented On 07/21/2023 3:39PM ; [facility] - Mixed anxiety disorder [F41.3 - Other mixed anxiety disorders] - Last Documented On 07/21/2023 3:39PM ; [facility] Medical Equipment - Implanted Devices Includes: Current Devices No Medical Equipment Recorded Medications Includes: Medications discussed during this encounter and other current Medications Discontinued / Stopped on this date LIANG GILLESPIE DO on 03/27/2023 ALPRAZolam 0.25 MG Oral Tablet Provider: LIANG GILLESPIE DO Diagnosis: Anxiety disorder , unspecified Last Documented On 07/17/2023 5:48PM By LIANG GILLESPIE DO ; [facility] New / Renewed during this visit LIANG GILLESPIE DO on 07/17/2023 ALPRAZolam 0.25 MG Oral Tablet Provider: LIANG GILLESPIE DO 30 day supply: 8 tablet, 0 refills Diagnosis: Anxiety disorder, unspecified TAKE 1/4-1 TABLET BY MOUTH E VERY 8-12 HOURS NEEDED FOR ANXIETY. MUST LAST AT LEAST 30 DAYS Pharmacy: [address], [address] - Last Documented On 1:14PM By Tiff DEAL ; [facility] Current Medications (continue as prescribed) Escitalopram Oxalate 20 MG Oral Tablet 11/02/2023 Provider: LIANG GILLESPIE DO Diagnosis: Major depressive disorder, single episode, unspecified TAKE 1 TABLET BY MOUTH EVERY DAY Last Documented On 11/02/2023 8:41AM By LIANG GILLESPIE DO ; [facility] buPROPion HCl ER (XL) 300 MG Oral Tablet Extended Release 24 Hour 10/25/2023 Provider: LIANG GILLESPIE DO Diagnosis: Anxiety disorder , unspecified 1 TABLET DAILY Last Documented On 10/25/2023 12:36PM By LIANG GILLESPIE DO ; [facility] Methylphenidate HCl ER 20 MG Oral Tablet Extended Release 10/05/2023 Provider: LIANG BORJA DO Diagnosis: Attn-defct hyper activity disorder, predom inattentive type One tablet daily am Last Documented On 10/05/2023 8:25AM By LIANG GILLESPIE DO ; [facility] Ondansetron 4 MG Oral Tablet Disintegrating 09/17/2023 Provider: LIANG GILLESPIE DO Diagnosis: Nausea 1 every 4 - 6 hours as needed nausea Last Documented On 09/17/2023 6:46PM By LIANG GILLESPIE DO ; [facility] ALPRAZolam 0.25 MG Oral Tablet 08/31/2023 Provider: TIFF TURNER [facility] Diagnosis: Anxiety disorder , unspecified TAKE 1/4-1 TABLET BY MOUTH E VERY 8-12 HOURS NEEDED FOR ANXIETY. MUST LAST AT LEAST 30 DAYS Last Documented On 1:24PM By Tiff Turner [facility] ; [facility] buPROPion HCl ER (XL) 150 MG Oral Tablet Extended Release 24 Hour 07/11/2023 Provider: LIANG GILLESPIE DO Diagnosis: Anxiety disorder , unspecified TAKE 1 TABLET BY MOUTH EVERY DAY IN THE MORNING Last Documented On 07/11/2023 9:37AM By LIANG GILLESPIE DO ; [facility] Albuterol Sulfate HFA 108 (9 0 Base) MCG/ACT Inhalation Aerosol Solution 07/11/2023 Provider: LIANG MCFARLANE DO Diagnosis: COVID-19 INHALE 1-2 PUFFS INTO THE STACIA NGS EVERY 4-12 HRS NEEDED FOR WHEEZE Last Documented On 07/11/2023 9:37AM By LIANG GILLESPIE DO ; [facility] Methylphenidate HCl 5 MG Ora l Tablet 04/11/2023 Provider: LIANG GILLESPIE DO Diagnosis: Attn-defct hyper activity disorder, predom inattentive type 1 pm work days Last Documented On 04/11/2023 10:34AM By LIANG GILLESPIE DO ; [facility] Triamcinolone Acetonide 0.1% External Cream 11/29/2022 Provider: TIFF TURNER [facility] Diagnosis: Dermatitis, unsp ecified apply to affected area 2 omega es daily. do not use for longer than 14 days in a row. Last Documented On 10:38AM By Tiff Turner [facility] ; [facility] Nexplanon 68 MG Subcutaneous Implant 01/06/2022 Prov ider: Diagnosis: Last Documented On 03/07/2022 2:42PM By Lilliana Munroe Harry ; [facility] Flonase 50 MCG/ACT Nasal Suspension 04/09/2020 Provi harris: Diagnosis: Last Documented On 04/09/2020 10:25AM By Concepción Albright Harry ; [facility] ZyrTEC Allergy 10 MG Oral Tablet 04/09/2020 Provider : Diagnosis: Last Documented On 04/09/2020 10:25AM By Concepción GALINDO ; [facility] EpiPen 2-Cory 0.3MG/0.3ML Injection Solution Auto-injec tor 12/19/2017 Provider: Diagnosis: Given to her by the ER Last Documented On 12/19/2017 10:12AM By PETER GALINDO ; [facility] Past Medications on file Benzonatate 100 MG Oral Capsule 04/13/2023 - 3 Provider: LIANG GILLESPIE DO Diagnosis: COVID-19 as directed 1-2 q 6 hours prn cough Last Documented On 04/13/2023 2:28PM By LIANG GLILESPIE DO ; [facility] Lagevrio 200 MG Oral Capsule 03/19/2023 - 03/24/2023 P rovider: LIANG GILLESPIE DO Diagnosis: COVID-19 4 po bid x 5 Last Documented On 03/19/2023 12:59PM By LIANG GILLESPIE DO ; [facility] Medications Administered Includes: Administered Medications from this encounter No Administered Medications Recorded Vital Signs Includes: Vital Signs from this encounter Vital Name 07/17/2023 04:23P Blood Pressure Sitting R 122/82 Pulse Rate-Sitting (bpm) 72 Respiration Rate (breaths/min) 20 Height (in) 61.5 Weight (lb) 241.25 Body Mass Index 44.8 Body Surface Area 2.1 Oxygen Saturation (%) 97 Last Documented: On 07/17/2023 4:23PM ; [facility] Results Includes: Results discussed during this encounter [...] bladder problems. Social History Description Last Updated Tobacco non-user 07/25/2022 Last Documented On 4 4:22PM ; [facility] Using marijuana 02/08/2021 Last Documented On 4 4:22PM ; [facility] Smoking Status Unknown Procedures and Surgical History Includes: Procedures from this encounter Procedures Code Diagnosis Performing Provider Service L ocation Service Date dietary regime Last Documented On 4 4:46PM ; [facility] plan of care reviewed and agreed to Last Documented On 4 4:46PM ; [facility] plan of care reviewed and agreed to by t he patient Last Documented On 4 4:46PM ; [facility] Pt encouraged to be compliant with curre nt treatment Last Documented On 4 4:46PM ; [facility] Discussed Exercise Last Documented On 4 4:46PM ; [facility] instructed to monitor salt intake Last Documented On 4 4:46PM ; [facility] Reviewed Blood Pressures Last Documented On 4 4:46PM ; [facility] Medical History Includes: Medical History addressed during this encounter Description Last Updated LMP: nexplanon 07/25/2022 Last Documented On 4 4:22PM ; [facility] Surgery 2001- KNEE SURGERY 11/23/2008 Last Documented On 4 4:22PM ; [facility] Family History Includes: Family History addressed during this encounter Description Last Updated Family history of asthma 09/13/2021 Last Documented On 4 4:22PM ; [facility] Family history of diabetes mellitus 09/04 Last Documented On 4 4:22PM ; [facility] Family history of systemic hypertension 09/13/2021 Last Documented On 4 4:22PM ; [facility] Family history reviewed - unchanged sinc e last visit 01/03/2019 Last Documented On 4 4:22PM ; [facility] Father HIGH BLOOD PRESSURE 11/23/2008 Last Documented On 4 4:22PM ; [facility] Review of Systems Includes: Review of Systems from this encounter Systemic: No fever and no night sweats. [...] person Thought processes were not i mpaired Anxiety No homicidal thoughts Not thinking about suicide The thought content revealed no impairment Moderate recurrent major dep ression with anxiety Functional Status Includes: Functional Status from this encounter No Functional Status Recorded Physical Exam Includes: Physical Exam from this encounter Allergies Includes: Active Allergies No Known Allergies Encounters Encounter Provider Location Date Check-In Time Check-Out Time Diagnosis CHECK UP LIANG GILLESPIE DO [facility] 07/17/19 24 4:21PM 4:57PM Major Depression Recurrent Moderate with Anxiety,Anxiety Disorder Mixed,Adhd, Predominantly Inattentive Type,Ovarian Cyst Other Insurance Includes: Active Insurance Policies Plan Name Member ID Group # Subscriber Relationship Effect palmer Dates 1 - [employer] [id number] BRENDA GARCÍA Self 11/04/2020 - Unknown Clinical Notes Includes: Clinical Notes from this encounter * Progress note Date Encounter Last Documented by 07/17/2023 CHECK UP Last documented on 07/21/2023; 3:39 PM, LIANG GILLESPIE DO; [facility] Active Problems & Conditions [...] of water and stay hydrated. get records pineda castillo Other Johann Blandon, scribing the following service on behalf of Dr. Liang Gillespie, D.O.
--- OUTSIDE RECORDS SUMMARY | 2024-06-28 17:24 | XMS_ITS | Clinical Summary ---
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 LIANG ALMANZA DO Active Last Documented On 2 10:05PM ; [facility] 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 05/05/2020 LIANG ALMANZA DO Active Last Documented On 0 1:48PM ; [facility] 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 11/28/2019 LIANG ALMANZA DO Active Last Documented On 0 12:42PM ; [facility] Plan of Treatment No [...] 11/02/2023 8:41AM By LIANG ALMANZA DO ; [facility] buPROPion HCl ER (XL) 300 MG Oral Tablet Extended Release 24 Hour 10/25/2023 Provider: LIANG ALMANZA DO Diagnosis: Anxiety disorder , unspecified 1 TABLET DAILY Last Documented On 10/25/2023 12:36PM By LIANG ALMANZA DO ; [facility] Methylphenidate HCl ER 20 MG Oral Tablet Extended Release 10/05/2023 Provider: LIANG BORJA DO Diagnosis: Attn-defct hyper activity disorder, predom inattentive type One tablet daily am Last Documented On 10/05/2023 8:25AM By LIANG ALMANZA DO ; [facility] Ondansetron 4 MG Oral Tablet Disintegrating 09/17/2023 Provider: LIANG ALMANZA DO Diagnosis: Nausea 1 every 4 - 6 hours as needed nausea Last Documented On 09/17/2023 6:46PM By LIANG ALMANZA DO ; [facility] ALPRAZolam 0.25 MG Oral Tablet 08/31/2023 Provider: TIFF SHELTON Diagnosis: Anxiety disorder , unspecified TAKE 1/4-1 TABLET BY MOUTH E VERY 8-12 HOURS NEEDED FOR ANXIETY. MUST LAST AT LEAST 30 DAYS Last Documented On 1:24PM [facility] ; [facility] buPROPion HCl ER (XL) 150 MG Oral Tablet Extended Release 24 Hour 07/11/2023 Provider: LIANG ALMANZA DO Diagnosis: Anxiety disorder , unspecified TAKE 1 TABLET BY MOUTH EVERY DAY IN THE MORNING Last Documented On 07/11/2023 9:37AM By LIANG ALMANZA DO ; [facility] Albuterol Sulfate HFA 108 (9 0 Base) MCG/ACT Inhalation Aerosol Solution 07/11/2023 Provider: LIANG MCFARLANE DO Diagnosis: COVID-19 INHALE 1-2 PUFFS INTO THE STACIA NGS EVERY 4-12 HRS NEEDED FOR WHEEZE Last Documented On 07/11/2023 9:37AM By LIANG AMLANZA DO ; [facility] Methylphenidate HCl 5 MG Ora l Tablet 04/11/2023 Provider: LIANG ALMANZA DO Diagnosis: Attn-defct hyper activity disorder, predom inattentive type 1 pm work days Last Documented On 04/11/2023 10:34AM By LIANG ALMANZA DO ; [facility] Triamcinolone Acetonide 0.1% External Cream 11/29/2022 Provider: TIFF DEALBC Diagnosis: Dermatitis, unsp ecified apply to affected area 2 omega es daily. do not use for longer than 14 days in a row. Last Documented On 3 10:38AM By [facility] ; [facility] Nexplanon 68 MG Subcutaneous Implant 01/06/2022 Prov ider: Diagnosis: Last Documented On 03/07/2022 2:42PM By Lilliana Munroe Harry ; [facility] Flonase 50 MCG/ACT Nasal Suspension 04/09/2020 Provi harris: Diagnosis: Last Documented On 04/09/2020 10:25AM By Concepción Albright Harry ; [facility] ZyrTEC Allergy 10 MG Oral Tablet 04/09/2020 Provider : Diagnosis: Last Documented On 04/09/2020 10:25AM By Concepción GALINDO ; [facility] EpiPen 2-Cory 0.3MG/0.3ML Injection Solution Auto-injec tor 12/19/2017 Provider: Diagnosis: Given to her by the ER Last Documented On 12/19/2017 10:12AM By PETER PRABHAKAR Harry ; [facility] Medications Administered Includes: Administered Medications from this encounter No Administered Medications Recorded Results Includes: Results discussed during this encounter No Results Recorded For Specified Dates History of Present Illness Includes: History of Present Illness from this encounter No History of Present Illness Recorded Social History No Social History Recorded - Smoking Status Unknown Medical History Includes: Medical History addressed during this encounter No Medical History Recorded Family History Includes: Family History addressed during this encounter No Family History Recorded Review of Systems Includes: Review of Systems [...] Check-Out Time Diagnosis [facility] 4 2:00PM 11:59PM Insurance Includes: Active Insurance Policies Plan Name Member ID Group # Subscriber Relationship Effect palmer Dates 1 - [employer] [id number] BRENDA GARCÍA Self 11/04/2020 - Unknown Clinical Notes Includes: Clinical Notes from this encounter No Clinical Notes Recorded
--- OUTSIDE RECORDS SUMMARY | 2024-06-28 17:24 | XMS_ITS | Clinical Summary ---
Author Organization [facility] Address [address] [place] [address] Phone Care Team Providers Care Senior Quality Analyst Name Role Phone LIANG ALMANZA DO Primary Care Provider [phone] Reason for Visit and Chief Complaint * PHONE CALL Problems Includes: Problems addressed during this encounter and other active Problems All Visits Onset Date Resolved Date Provider Condition S tatus Anxiety Disorder Mixed 07/28/2022 LIANG HASSAN DO Active Last Documented On 3 8:10PM ; 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 05/05/2020 LIANG ALMAZNA DO Active Last Documented On 0 1:48PM ; [facility] 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 11/28/2019 LIANG ALMANZA DO Active Last Documented On 0 12:42PM ; [facility] Plan of Treatment No Plan of Treatment Recorded Assessments Includes: Assessments from this encounter No Assessments Recorded Medical Equipment - Implanted Devices Includes: Current Devices No Medical Equipment Recorded Medications Includes: Medications discussed during this encounter and other current Medications New / Renewed during this visit LIANG ALMANZA DO on 04/13/2023 Benzonatate 100 MG Oral Capsule Provider: LIANG ALMANZA DO 7 day supply: 28 capsule, 1 refills Diagnosis: COVID-19 as directed 1-2 q 6 hours prn cough Pharmacy: [address], [address] - Last Documented On 04/13/2023 2:28PM By LIANG ALMANZA DO ; [facility] Current Medications (continue as prescribed) Escitalopram Oxalate 20 MG Oral Tablet 11/02/2023 Provider: LIANG ALMANZA DO Diagnosis: Major depressive disorder, single episode, unspecified TAKE 1 TABLET BY MOUTH EVERY DAY Last Documented On 11/02/2023 8:41AM By LIANG ALMANZA DO ; [facility] buPROPion HCl ER (XL) 300 MG Oral Tablet Extended Release 24 Hour 10/25/2023 Provider: LIANG ALMANZA DO Diagnosis: Anxiety disorder , unspecified 1 TABLET DAILY Last Documented On 10/25/2023 12:36PM By LIANG ALMANZA DO ; [facility] Methylphenidate HCl ER 20 MG Oral Tablet Extended Release 10/05/2023 Provider: LIANG BORJA DO Diagnosis: Attn-defct hyper activity disorder, predom inattentive type One tablet daily am Last Documented On 10/05/2023 8:25AM By LIANG ALMANZA DO ; [facility] Ondansetron 4 MG Oral Tablet Disintegrating 09/17/2023 Provider: LIANG ALMANZA DO Diagnosis: Nausea 1 every 4 - 6 hours as needed nausea Last Documented On 09/17/2023 6:46PM By LIANG ALMANZA DO ; [facility] ALPRAZolam 0.25 MG Oral Tablet 08/31/2023 Provider: [facility]FF [facility] Diagnosis: Anxiety disorder , unspecified TAKE 1/4-1 TABLET BY MOUTH E VERY 8-12 HOURS NEEDED FOR ANXIETY. MUST LAST AT LEAST 30 DAYS Last Documented On 1:24PM By [facility] ; [facility] buPROPion HCl ER (XL) 150 MG Oral Tablet Extended Release 24 Hour 07/11/2023 Provider: LIANG ALMANZA DO Diagnosis: Anxiety disorder , unspecified TAKE 1 TABLET BY MOUTH EVERY DAY IN THE MORNING Last Documented On 07/11/2023 9:37AM By LIANG ALMANZA DO ; [facility] Albuterol Sulfate HFA 108 (9 0 Base) MCG/ACT Inhalation Aerosol Solution 07/11/2023 Provider: LIANG MCFARLANE DO Diagnosis: COVID-19 INHALE 1-2 PUFFS INTO THE STACIA NGS EVERY 4-12 HRS NEEDED FOR WHEEZE Last Documented On 07/11/2023 9:37AM By LIANG ALMANZA DO ; [facility] Methylphenidate HCl 5 MG Ora l Tablet 04/11/2023 Provider: LIANG ALMANZA DO Diagnosis: Attn-defct hyper activity disorder, predom inattentive type 1 pm work days Last Documented On 04/11/2023 10:34AM By LIANG ALMANZA DO ; [facility] Triamcinolone Acetonide 0.1% External Cream 11/29/2022 Provider: TIFF BRONSON [facility] Diagnosis: Dermatitis, unsp ecified apply to affected area 2 omega es daily. do not use for longer than 14 days in a row. Last Documented On 10:38AM By Tiff [facility] ; [facility] Nexplanon 68 MG Subcutaneous Implant 01/06/2022 Prov ider: Diagnosis: Last Documented On 03/07/2022 2:42PM By Lilliana GALINDO ; [facility] Flonase 50 MCG/ACT Nasal Suspension 04/09/2020 Provi harris: Diagnosis: Last Documented On 04/09/2020 10:25AM By Concepción GALINDO ; [facility] ZyrTEC Allergy 10 MG Oral Tablet 04/09/2020 Provider : Diagnosis: Last Documented On 04/09/2020 10:25AM By Concepción GALINDO ; [facility] EpiPen 2-Cory 0.3MG/0.3ML Injection Solution Auto-injec tor 12/19/2017 Provider: Diagnosis: Given to her by the ER Last Documented On 12/19/2017 10:12AM By PETER GALINDO ; [facility] Past Medications on file Lagevrio 200 MG Oral Capsule 03/19/2023 - 03/24/2023 [place] karimi: LIANG ALMANZA DO Diagnosis: COVID-19 4 po bid x 5 Last Documented On 03/19/2023 12:59PM By LIANG ALMANZA DO ; [facility] Medications Administered Includes: Administered Medications from this encounter No Administered Medications Recorded Results Includes: Results discussed during this encounter No Results Recorded For Specified Dates History of Present Illness Includes: History of Present Illness from this encounter No History of Present Illness Recorded Social History Description Last Updated Tobacco non-user 07/25/2022 Last Documented On 3 11:42AM ; [facility] Using marijuana 02/08/2021 Last Documented On 3 11:42AM ; [facility] Smoking Status Unknown Medical History Includes: Medical History addressed during this encounter Description Last Updated LMP: nexplanon 07/25/2022 Last Documented On 3 11:42AM ; [facility] Surgery 2001- KNEE SURGERY 11/23/2008 Last Documented On 3 11:42AM ; [facility] Family History Includes: Family History addressed during this encounter Description Last Updated Family history of asthma 09/13/2021 Last Documented On 3 11:42AM ; [facility] Family history of diabetes mellitus 09/04 Last Documented On 3 11:42AM ; [facility] Family history of systemic hypertension 09/13/2021 Last Documented On 3 11:42AM ; [facility] Family history reviewed - unchanged sinc e last visit 01/03/2019 Last Documented On 3 11:42AM ; [facility] Father HIGH BLOOD PRESSURE 11/23/2008 Last Documented On 3 11:42AM ; [facility] Review of Systems Includes: Review [...] Diagnosis * PHONE CALL LIANG ALMANZA DO 04/13/2023 11:42AM 11:59PM Insurance Includes: Active Insurance Policies Plan Name Member ID Group # Subscriber Relationship Effect palmer Dates 1 - [employer] [id number] BRENDA GARCÍA Self 11/04/2020 - Unknown Clinical Notes Includes: Clinical Notes from this encounter * Progress note Date Encounter Last Documented by 04/13/2023 * PHONE CALL Last documented on 04/13/2023; 2:19 PM, LIANG ALMANZA DO; [facility] Active Problems & Conditions - F90.0 - Adhd, Predominantly Inattentive Type - F41.3 - Anxiety Disorder Mixed - M54.6 - 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 - F41.9 - Major Depression Recurrent Moderate with Anxiety Chief Complaint Phone Call - Chief Concern: reason for call: Patient called in stating she is recovering from covid and still has a horrible cough. She wants to know if she can get something for her cough so she can sleep at night. Please advise. pt phone # for return call: Date/Initials: 04/13/23-SS. Current Medication - Albuterol Sulfate HFA 108 [...] BY MOUTH EVERY DAY IN THE MORNING, 90 days, 0 refills - EpiPen 2-Cory 0.3MG/0.3ML Injection Solution Auto-injector 0.3 MG/0.3ML as directed Given to her by the ER, 0 days, 0 refills - Escitalopram Oxalate 20 MG Oral Tablet TAKE 1 TABLET BY MOUTH EVERY DAY, 90 days, 1 refills - Flonase 50 MCG/ACT Nasal Suspension [...] hypertension Asthma Diabetes mellitus Plan StartCited - COVID-19 Benzonatate 100 MG capsule as directed 1-2 q 6 hours prn cough, 7 days, 1 refills EndCited StartCited - Other PHY ORDER/COMMENT Notify patient med sent to pharmacy, they should follow up in no improvement. go to er if sob, can also take delsym with rx sent. if colored productive cough may need abx EndCited
--- OUTSIDE RECORDS SUMMARY | 2024-06-28 19:08 | XMS_ITS | Referral Summary ---
Author Organization [facility] [address] Address [address] [place] [address] Care Team Providers Care Electronic Field Service Engineer Name Role Phone Ravindra Gillespie DO Primary Care Provider Allergies Active Allergy Reactions Criticality Noted Date [...] (12/24/2019): Added automatically from request for surgery [id number] Social History Tobacco Use Types Packs/Day Years Used Date Smoking Tobacco: Never Cigarettes Smokeless Tobacco: Never Tobacco Cessation:Counseling Given: Not Answered Alcohol Use Standard Drinks/Week Comments Yes 0 (1 standard drink = 0.6 oz pur e alcohol) Rarely Comments No Sex and Gender Information Value Date Recorded Sex Assigned at Not on file Legal Sex Female 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 Gender Identity Not on file Sexual Orientation [...] Plan of Treatment Not on file [facility] [id number] Member Subscriber Plan / Payer (Ef fective 2023-Present) Name:Katie Hinds Abiel Member ID:[id number] Relation to Subscriber:Self Name:Katie Hinds Subscriber ID:[id number] Payer ID:[id number] Type:[employer] HMO/PPO Address: [address] [place] [id number] Care Teams Electronic Field Service Engineer Relationship Specialty Start Date End Date Ravindra Gillespie DO [address] [place] [id number] PCP - General Family Practice 03/15/20
--- OUTSIDE RECORDS SUMMARY | 2024-06-28 19:08 | XMS_ITS | Clinical Summary ---
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 LIANG ALMANZA DO Active Last Documented On 2 10:05PM ; [facility] 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 05/05/2020 LIANG ALMANZA DO Active Last Documented On 0 1:48PM ; [facility] 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 11/28/2019 LIANG ALMANZA DO Active Last Documented On 0 12:42PM ; [facility] Plan of Treatment No Plan of Treatment [...] Anxiety disorder, unspecified One tablet daily Pharmacy: [facility] [place] [address], [id number] - Last Documented On 10/25/2023 12:33PM By LIANG ALMANZA DO ; [facility] Current Medications (continue as prescribed) Escitalopram Oxalate 20 MG Oral Tablet 11/02/2023 Provider: LIANG ALMANZA DO Diagnosis: Major depressive disorder, single episode, unspecified TAKE 1 TABLET BY MOUTH EVERY DAY Last Documented On 11/02/2023 8:41AM By LIANG ALMANZA DO ; [facility] buPROPion HCl ER (XL) 300 MG Oral Tablet Extended Release 24 Hour 10/25/2023 Provider: LIANG ALMANZA DO Diagnosis: Anxiety disorder , unspecified 1 TABLET DAILY Last Documented On 10/25/2023 12:36PM By LIANG ALMANZA DO ; [facility] Methylphenidate HCl ER 20 MG Oral Tablet Extended Release 10/05/2023 Provider: LIANG BORJA DO Diagnosis: Attn-defct hyper activity disorder, predom inattentive type One tablet daily am Last Documented On 10/05/2023 8:25AM By LIANG ALMANZA DO ; [facility] Ondansetron 4 MG Oral Tablet Disintegrating 09/17/2023 Provider: LIANG ALMANZA DO Diagnosis: Nausea 1 every 4 - 6 hours as needed nausea Last Documented On 09/17/2023 6:46PM By LIANG ALMANZA DO ; [facility] ALPRAZolam 0.25 MG Oral Tablet 08/31/2023 Provider: TIFF [facility] Diagnosis: Anxiety disorder , unspecified TAKE 1/4-1 TABLET BY MOUTH E VERY 8-12 HOURS NEEDED FOR ANXIETY. MUST LAST AT LEAST 30 DAYS Last Documented On 1:24PM By Tiff [facility] ; [facility] buPROPion HCl ER (XL) 150 MG Oral Tablet Extended Release 24 Hour 07/11/2023 Provider: LIANG ALMANZA DO Diagnosis: Anxiety disorder , unspecified TAKE 1 TABLET BY MOUTH EVERY DAY IN THE MORNING Last Documented On 07/11/2023 9:37AM By LIANG ALMANZA DO ; [facility] Albuterol Sulfate HFA 108 (9 0 Base) MCG/ACT Inhalation Aerosol Solution 07/11/2023 Provider: LIANG MCFARLANE DO Diagnosis: COVID-19 INHALE 1-2 PUFFS INTO THE STACIA NGS EVERY 4-12 HRS NEEDED FOR WHEEZE Last Documented On 07/11/2023 9:37AM By LIANG ALMANZA DO ; [facility] Methylphenidate HCl 5 MG Ora l Tablet 04/11/2023 Provider: LIANG ALMANZA DO Diagnosis: Attn-defct hyper activity disorder, predom inattentive type 1 pm work days Last Documented On 04/11/2023 10:34AM By LIANG ALMANZA DO ; [facility] Triamcinolone Acetonide 0.1% External Cream 11/29/2022 Provider: TIFF [facility] Diagnosis: Dermatitis, unsp ecified apply to affected area 2 omega es daily. do not use for longer than 14 days in a row. Last Documented On 10:38AM By Tiff [facility] ; [facility] Nexplanon 68 MG Subcutaneous Implant 01/06/2022 Prov ider: Diagnosis: Last Documented On 03/07/2022 2:42PM By Lilliana GALINDO ; [facility] Flonase 50 MCG/ACT Nasal Suspension 04/09/2020 Provi harris: Diagnosis: Last Documented On 04/09/2020 10:25AM By Concepción GALINDO ; [facility] ZyrTEC Allergy 10 MG Oral Tablet 04/09/2020 Provider : Diagnosis: Last Documented On 04/09/2020 10:25AM By Concepción GALINDO ; [facility] EpiPen 2-Cory 0.3MG/0.3ML Injection Solution Auto-injec tor 12/19/2017 Provider: Diagnosis: Given to her by the ER Last Documented On 12/19/2017 10:12AM By PETER GALINDO ; [facility] Past Medications on file Benzonatate 100 MG Oral Capsule 04/13/2023 - 3 Provider: LIANG ALMANZA DO Diagnosis: COVID-19 as directed 1-2 q 6 hours prn cough Last Documented On 04/13/2023 2:28PM By LIANG ALMANZA DO ; [facility] Lagevrio 200 MG Oral Capsule 03/19/2023 - 03/24/2023 P rovider: LIANG ALMANZA DO Diagnosis: COVID-19 4 po bid x 5 Last Documented On 03/19/2023 12:59PM By LIANG ALMANZA DO ; [facility] Medications Administered Includes: Administered Medications from this encounter No Administered Medications Recorded Results Includes: Results discussed during this encounter No Results Recorded For Specified Dates History of Present Illness Includes: History of Present Illness from this encounter No History of Present Illness Recorded Social History Description Last Updated Tobacco non-user 07/25/2022 Last Documented On 4 11:40AM ; [facility] Using marijuana 02/08/2021 Last Documented On 4 11:40AM ; [facility] Smoking Status Unknown Medical History Includes: Medical History addressed during this encounter Description Last Updated LMP: nexplanon 07/25/2022 Last Documented On 4 11:40AM ; [facility] Surgery 2000- KNEE SURGERY 11/23/2008 Last Documented On 4 11:40AM ; [facility] Family History Includes: Family History addressed during this encounter Description Last Updated Family history of asthma 09/13/2021 Last Documented On 4 11:40AM ; [facility] Family history of diabetes mellitus 09/04 Last Documented On 4 11:40AM ; [facility] Family history of systemic hypertension 09/13/2021 Last Documented On 4 11:40AM ; [facility] Family history reviewed - unchanged sinc e last visit 01/03/2019 Last Documented On 4 11:40AM ; [facility] Father HIGH BLOOD PRESSURE 11/23/2008 Last Documented On 4 11:40AM ; [facility] Review of Systems Includes: Review of [...] 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
--- OUTSIDE RECORDS SUMMARY | 2024-06-28 19:08 | XMS_ITS ---
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 LIANG ALMANZA DO Active Last Documented On 2 10:05PM ; [facility] 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 05/05/2020 LIANG ALMANZA DO Active Last Documented On 0 1:48PM ; [facility] 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 11/28/2019 LIANG ALMANZA DO Active Last Documented On 0 12:42PM ; [facility] Limb Pain Toe 01/04/2019 05/05/2020 LIANG ALMANZA DO Res olved Last Documented On 0 1:49PM ; [facility] Abdmnal Pain Unspcf Site 11/23/2008 LIANG BORJA DO Inactive Last Documented On 8 10:28AM ; [facility] GSTR/DDNTS NOS W/O HMRHG 11/23/2008 LIANG BORJA DO Inactive Last Documented On 8 10:28AM ; [facility] URIN TRACT INFECTION NOS 11/23/2008 LIANG BORJA DO Inactive Last Documented On 8 10:28AM ; [facility] Plan of Treatment Findings Encounter Date Continue current medication CHECK UP with LIANG VAUGHNFF DO 08/24/2023 Last Documented On 4 7:44AM ; [facility] Ordered follow-up visit CHECK UP with LIANG PHAM DO 08/24/2023 Last Documented On 4 7:44AM ; [facility] Ordered patient to call if p roblem develops CHECK UP with LIANG Woodward PALCHEFF DO 08/24/2023 Last Documented On 4 7:44AM ; [facility] PLAN [Use for s.o.a.p. note free text] CHECK UP with LIANG Woodward PALCHEFF DO 08/24/2023 Last Documented On 4 7:44AM ; [facility] Continue current medication CHECK UP with LIANG Woodward PALCHEFF DO 07/17/2023 Last Documented On 4 3:39PM ; [facility] Ordered follow-up visit CHECK UP with LIANG SANTAMARIA CHEFF DO 07/17/2023 Last Documented On 4 3:39PM ; [facility] Ordered patient to call if p roblem develops CHECK UP with LIANG Woodward PALCHEFF DO 07/17/2023 Last Documented On 4 3:39PM ; [facility] PLAN [Use for s.o.a.p. note free text] CHECK UP with LIANG SANTAMARIACHEFF DO 07/17/2023 Last Documented On 4 3:39PM ; [facility] Continue current medication CHECK UP with LIANG Woodward PALCHEFF DO 12/19/2022 Last Documented On 3 6:57PM ; [facility] Ordered follow-up visit CHECK UP with LIANG Woodward PAL CHEFF DO 12/19/2022 Last Documented On 3 6:57PM ; [facility] Ordered patient to call if p roblem develops CHECK UP with LIANG Woodward PALCHEFF DO 12/19/2022 Last Documented On 3 6:57PM ; [facility] PL[facility] [Use for s.o.a.p. note free text] CHECK UP with LIANG Woodward PALCHEFF DO 12/19/2022 Last Documented On 3 6:57PM ; [facility] Continue current medication CHECK UP with LIANG ALMANZA DO 07/25/2022 Last Documented On 3 8:11PM ; [facility] Ordered follow-up visit CHECK UP with LIANG PHAM DO 07/25/2022 Last Documented On 3 8:11PM ; [facility] Ordered patient to call if [place] oleary develops CHECK UP with LIANG ALMANZA DO 07/25/2022 Last Documented On 3 8:11PM ; [facility] PLAN [Use for s.o.a.p. note free text] CHECK UP with LIANG ALMANZA DO 07/25/2022 Last Documented On 3 8:11PM ; [facility] Continue current medication CHECK UP with LIANG ALMANZA DO 03/07/2022 Last Documented On 2 10:57AM ; [facility] Ordered follow-up visit CHECK UP with LIANG SANTAMARIA CHEMO DO 03/07/2022 Last Documented On 2 10:57AM ; [facility] Ordered return to the clinic if condition worsens or new symptoms arise CHECK UP with LIANG ALMANZA DO 03/07/2022 Last Documented On 2 10:57AM ; [facility] PLAN [Use for s.o.a.p. note free text] CHECK UP with LIANG VAUGHNMO DO 03/07/2022 Last Documented On 2 10:57AM ; [facility] Continue current medication CHECK UP with LIANG ALMANZA DO 11/14/2021 Last Documented On 2 11:07AM ; [facility] PLAN [Use for s.o.a.p. note free text] CHECK UP with LIANG ALMANZA DO 11/14/2021 Last Documented On 2 11:07AM ; [facility] Anti-biotics prescribed. [place] ly Neosporin or triple anti-biotics twice a day. She was advised to drink plenty of water and stay hydrated. Notice the difference in symptoms. Call or RTC if not improving. Referral for ENT will be considered for further evaluation. PROBLEM VISIT with LIANG ALMANZA DO 06/28/2021 Last Documented On 2 12:42PM ; [facility] Medication instruction PROBLEM VISIT with LIANG ALMANZA DO 06/28/2021 Last Documented On 2 12:42PM ; [facility] Ordered return to the clinic if condition worsens or new symptoms arise PROBLEM VISIT with LIANG ALMANZA DO 06/28/2021 Last Documented On 2 12:42PM ; [facility] Watch for signs/symptoms of infection MA OBLEM VISIT with LIANG ALMANZA DO 06/28/2021 Last Documented On 2 12:42PM ; [facility] Ordered return to the clinic if condition worsens or new symptoms arise PROBLEM VISIT with LIANG ALMANZA DO 05/31/2021 Last Documented On 2 4:14PM ; [facility] PLAN [Use for s.o.a.p. note free text] PROBLEM VISIT with LIANG ALMANZA DO 05/31/2021 Last Documented On 2 4:14PM ; [facility] Ordered an X-ray PROBLEM VISIT with LIANG MCFARLANE DO 11/15/2020 Last Documented On 1 8:15PM ; [facility] Ordered analgesics (non-ster oidal anti-inflammatory agents) PROBLEM VISIT with LIANG ALMANZA DO 11/15/2020 Last Documented On 1 8:15PM ; [facility] Ordered home range of motion exercises P ROBLEM VISIT with LIANG ALMANZA DO 11/15/2020 Last Documented On 1 8:15PM ; [facility] Ordered return to the clinic if condition worsens or new symptoms arise PROBLEM VISIT with LIANG ALMANZA DO 11/15/2020 Last Documented On 1 8:15PM ; [facility] Ordered work restrictions PROBLEM VISIT with KRYSTA ALMANZA DO 11/15/2020 Last Documented On 1 8:15PM ; [facility] PLAN [Use for s.o.a.p. note free text] PROBLEM VISIT with LIANG ALMANZA DO 11/15/2020 Last Documented On 1 8:15PM ; [facility] Ordered analgesics PROBLEM VISIT with LIANG PHAM DO 11/25/2019 Last Documented On 0 12:44PM ; [facility] Take Claritin or Zyrtec danica y. Continue the Pepcid. Consider fasting lab in the future PROBLEM VISIT with LIANG ALMANZA DO 12/19/2017 Last Documented On 8 8:54PM ; [facility] Medication instruction PROBLEM VISIT with LIANG ALMANZA DO 12/19/2017 Last Documented On 8 8:54PM ; [facility] Medication instruction PROBLEM VISIT with LIANG ALMANZA DO 12/19/2017 Last Documented On 8 8:54PM ; [facility] Ordered patient to call if [place] oleary develops PROBLEM VISIT with LIANG ALMANZA DO 12/19/2017 Last Documented On 8 8:54PM ; [facility] Ordered return to the clinic if condition worsens or new symptoms arise PROBLEM VISIT with LIANG ALMANZA DO 12/19/2017 Last Documented On 8 8:54PM ; [facility] Ordered follow-up visit as n eeded with an office visit. PROBLEM VISIT with DREA MCGUIRE PA-C 07/16/2009 Last Documented On 0 1:04PM ; [facility] Referrals To Diagnosis General Surgery WILFREDO CALZADA MD Calculus of ga llbladder w chronic cholecyst w/o obstruction Last Documented On 2 2:10PM ; [facility] Instructions to patient Intervention and counseling on cessation of tobacco use Last Documented On 3 6:35PM ; [facility] Intervention and counseling on cessation of tobacco use Last Documented On 2 2:43PM ; [facility] Intervention and counseling on cessation of tobacco use Last Documented On 2 10:46AM ; [facility] Intervention and counseling on cessation of tobacco use Last Documented On 2 10:43AM ; [facility] Intervention and counseling on cessation of tobacco use Last Documented On 2 11:02AM ; [facility] Go to the emergency room if condition worsens Last Documented On 2 11:55AM ; [facility] Watch for signs/symptoms of infection Last Documented On 2 12:34PM ; [facility] Intervention and counseling on cessation of tobacco use Last Documented On 2 6:40PM ; [facility] Intervention and counseling on cessation of tobacco use Last Documented On 2 3:33PM ; [facility] Watch for signs/symptoms of infection Last Documented On 1 2:41PM ; [facility] May resume normal activities as tolerated Last Documented On 1 8:13PM ; [facility] Education and Decision Aids were provided during visit for: Did not discuss concerns abo ut Vaping use Last Documented On 2 4:06PM ; [facility] Assessments Includes: Assessments for all patient encounters Findings Encounter Date Mixed anxiety disorder CHECK UP with LIANG BORJA DO 08/24/2023 Last Documented On 4 7:44AM ; [facility] Moderate recurrent major dep ression with anxiety CHECK UP with LIANG ALMANZA DO 08/24/2023 Last Documented On 4 7:44AM ; [facility] ADHD, predominantly inattentive type CHECK UP wi LIANG ALMANZA DO 07/17/2023 Last Documented On 4 3:39PM ; [facility] Mixed anxiety disorder CHECK UP with LIANG BORJA DO 07/17/2023 Last Documented On 4 3:39PM ; [facility] Moderate recurrent major dep ression with anxiety CHECK UP with LIANG ALMANZA DO 07/17/2023 Last Documented On 4 3:39PM ; [facility] Other ovarian cyst CHECK UP with LIANG ALMANZA DO 07/17/2023 Last Documented On 4 3:39PM ; [facility] Acute COVID-19 infection * PHONE CALL with LIANG ALMANZA DO 03/19/2023 Last Documented On 3 12:52PM ; [facility] Nausea * PHONE CALL with LIANG Perez DO 03/19/2023 Last Documented On 3 12:52PM ; [facility] ADHD, predominantly inattentive type CHECK UP wi LIANG L PALCHEFF DO 12/19/2022 Last Documented On 3 6:57PM ; [facility] Mixed anxiety disorder CHECK UP with LIANG L PALC HEFF DO 12/19/2022 Last Documented On 3 6:57PM ; [facility] Moderate recurrent major dep ression with anxiety CHECK UP with LIANG L PALCHEFF DO 12/19/2022 Last Documented On 3 6:57PM ; [facility] [L30.9 - Dermatitis, unspeci fied] dermatitis * PHONE CALL with TIFF BRONSON EXTERNAL RELATIONS MANAGER- 11/29/2022 Last Documented On 3 10:28AM ; [facility] ADHD, predominantly inattentive type CHECK UP wi LIANG L PALCHEFF DO 07/25/2022 Last Documented On 3 8:11PM ; [facility] Mixed anxiety disorder CHECK UP with LIANG L PALC HEFF DO 07/25/2022 Last Documented On 3 8:11PM ; [facility] Moderate recurrent major dep ression with anxiety CHECK UP with LIANG L PALCHEFF DO 07/25/2022 Last Documented On 3 8:11PM ; [facility] ADHD, predominantly inattentive type CHECK UP wi LIANG L PALCHEFF DO 03/07/2022 Last Documented On 2 10:57AM ; [facility] Moderate recurrent major dep ression with anxiety CHECK UP with LIANG L PALCHEFF DO 03/07/2022 Last Documented On 2 10:57AM ; [facility] ADHD, predominantly inattentive type CHECK UP wi th LIANG L PALCHEFF DO 11/14/2021 Last Documented On 2 11:07AM ; [facility] Anxiety disorder NOS CHECK UP with LIANG L PALCHE FF DO 11/14/2021 Last Documented On 2 11:07AM ; [facility] Bilateral carpal tunnel syndrome CHECK UP with J JACEK L PALCHEFF DO 11/14/2021 Last Documented On 2 11:07AM ; [facility] Moderate recurrent major dep ression with anxiety CHECK UP with LIANG L PALCHEFF DO 11/14/2021 Last Documented On 2 11:07AM ; [facility] ADHD, predominantly inattentive type CHECK UP wi th LIANG L PALCHEFF DO 09/13/2021 Last Documented On 2 10:09PM ; [facility] Moderate recurrent major dep ression with anxiety CHECK UP with LIANG L PALCHEFF DO 09/13/2021 Last Documented On 2 10:09PM ; [facility] ADHD, predominantly inattentive type CHECK UP wi th LIANG L PALCHEFF DO 08/15/2021 Last Documented On 2 8:58PM ; [facility] Acute otitis media of right ear PROBLEM VISIT wi th LIANG L PALCHEFF DO 06/28/2021 Last Documented On 2 12:42PM ; [facility] Otitis externa of the left ear PROBLEM VISIT wit h LIANG L PALCHEFF DO 06/28/2021 Last Documented On 2 12:42PM ; [facility] Arthralgia of the right ulna/radius/wris t PROBLEM VISIT with LIANG L PALCHEFF DO 05/31/2021 Last Documented On 2 4:14PM ; [facility] Arthralgias of multiple sites PROBLEM VISIT with LIANG L PALCHEFF DO 05/31/2021 Last Documented On 2 4:14PM ; [facility] Moderate recurrent major dep ression with anxiety PROBLEM VISIT with LIANG L PALCHEFF DO 05/31/2021 Last Documented On 2 4:14PM ; [facility] Neuralgia PROBLEM VISIT with LIANG L PALCHE FF DO 05/31/2021 Last Documented On 2 4:14PM ; [facility] Moderate recurrent major dep ression with anxiety CHECK UP with LIANG L PALCHEFF DO 04/04/2021 Last Documented On 1 10:11PM ; [facility] Depression PROBLEM VISIT with LIANG L PALCHE FF DO 03/04/2021 Last Documented On 1 5:28PM ; [facility] Depression CHECK UP with LIANG L PALCHEFF DO 02/08/2021 Last Documented On 1 9:48PM ; [facility] Moderate recurrent major dep ression with anxiety CHECK UP with LIANG L PALCHEFF DO 02/08/2021 Last Documented On 1 9:48PM ; [facility] Post COVID-19 condition CHECK UP with LIANG PHAM DO 02/08/2021 Last Documented On 1 9:48PM ; [facility] Acute COVID-19 infection * PHONE CALL with LIANG ALMANZA DO 01/13/2021 Last Documented On 1 3:25PM ; [facility] Dyspnea caused by severe acu te respiratory syndrome coronavirus 2 * PHONE CALL with LIANG ALMANZA DO 01/13/2021 Last Documented On 1 3:25PM ; [facility] Contusion with intact skin s urface of the right lateral knee PROBLEM VISIT with LIANG ALMANZA DO 11/15/2020 Last Documented On 1 8:15PM ; [facility] Knee sprain PROBLEM VISIT with LIANG HASSAN DO 11/15/2020 Last Documented On 1 8:15PM ; [facility] Late effects of accidental fall PROBLEM VISIT wi th LIANG ALMANZA DO 11/15/2020 Last Documented On 1 8:15PM ; [facility] Osteoarthritis of knee PROBLEM VISIT with LIANG ALMANZA DO 11/15/2020 Last Documented On 1 8:15PM ; [facility] Moderate recurrent major dep ression with anxiety CHECK UP with LIANG ALMANZA DO 10/26/2020 Last Documented On 1 1:59PM ; [facility] Moderate recurrent major dep ression with anxiety CHECK UP with LIANG ALMANZA DO 08/05/2020 Last Documented On 1 8:38PM ; [facility] Moderate recurrent major dep ression with anxiety 1 MONTH CHECK with LIANG ALMANZA DO 05/05/2020 Last Documented On 1 7:39PM ; [facility] Anxiety disorder NOS GENERAL OFFICE VISIT with Laila ALMANZA DO 04/09/2020 Last Documented On 0 4:56PM ; [facility] Depression GENERAL OFFICE VISIT with LIANG ALMANZA DO 04/09/2020 Last Documented On 0 4:56PM ; [facility] Arthralgias in multiple sites PROBLEM VISIT with LIANG VAUGHNFF DO 11/25/2019 Last Documented On 0 12:44PM ; [facility] Cholelithiasis PROBLEM VISIT with LIANG Woodward PALCHE FF DO 11/25/2019 Last Documented On 0 12:44PM ; [facility] Gastritis PROBLEM VISIT with LIANG Woodward PALCHE FF DO 11/25/2019 Last Documented On 0 12:44PM ; [facility] GERD PROBLEM VISIT with LIANG Woodward PALCHE FF DO 11/25/2019 Last Documented On 0 12:44PM ; [facility] Pain in thoracic spine PROBLEM VISIT with LIANG Woodward PALCHEFF DO 11/25/2019 Last Documented On 0 12:44PM ; [facility] Ingrowing nail with infection PROBLEM VISIT with LIANG VAUGHNFF DO 01/03/2019 Last Documented On 9 4:17PM ; [facility] Pain in toe PROBLEM VISIT with LIANG SANTAMARIACHE FF DO 01/03/2019 Last Documented On 9 4:17PM ; [facility] Urticaria PROBLEM VISIT with LIANG SANTAMARIACHE FF DO 12/19/2017 Last Documented On 8 8:54PM ; [facility] Labyrinthitis -push fluids, rest, start second round of amoxil for root canal, add meclizine and flonase SICK VISIT with DREA MCGUIRE PA-C 10/25/2010 Last Documented On 1 2:10PM ; [facility] Metrorrhagia -pt not current ly sexually active, confirmed with negative preg test today. Pt has rx for BCP but hasn't started it yet SICK VISIT with DREA MCGUIRE PA-C 10/25/2010 Last Documented On 1 2:10PM ; [facility] Acute mastitis of the right breast -from cat scratch PROBLEM VISIT with DREA MCGUIRE PA-C 07/16/2009 Last Documented On 0 1:04PM ; [facility] Tinea corporis -left breast PROBLEM VISIT with Laila MCGUIRE PA-C 07/16/2009 Last Documented On 0 1:04PM ; [facility] Sprained left knee PROBLEM VISIT with LIANG PHAM DO 05/05/2009 Last Documented On 9 7:20PM ; [facility] Instructions Includes: Instructions for all patient encounters Instructions to patient Intervention and counseling on cessation of tobacco use Last Documented On 3 6:35PM ; [facility] Intervention and counseling on cessation of tobacco use Last Documented On 2 2:43PM ; [facility] Intervention and counseling on cessation of tobacco use Last Documented On 2 10:46AM ; [facility] Intervention and counseling on cessation of tobacco use Last Documented On 2 10:43AM ; [facility] Intervention and counseling on cessation of tobacco use Last Documented On 2 11:02AM ; [facility] Go to the emergency room if condition worsens Last Documented On 2 11:55AM ; [facility] Watch for signs/symptoms of infection Last Documented On 2 12:34PM ; [facility] Intervention and counseling on cessation of tobacco use Last Documented On 2 6:40PM ; [facility] Intervention and counseling on cessation of tobacco use Last Documented On 2 3:33PM ; [facility] Watch for signs/symptoms of infection Last Documented On 1 2:41PM ; [facility] May resume normal activities as tolerated Last Documented On 1 8:13PM ; [facility] Education and Decision Aids were provided during visit for: Did not discuss concerns abo ut Vaping use Last Documented On 2 4:06PM ; [facility] Medical Equipment - Implanted Devices Includes: Current and historical Devices No Medical Equipment Recorded Medications Includes: Current and historical Medications Current Medications (continue as prescribed) Escitalopram Oxalate 20 MG Oral Tablet 11/02/2023 Provider: LIANG ALMANZA DO Diagnosis: Major depressive disorder, single episode, unspecified TAKE 1 TABLET BY MOUTH EVERY DAY Last Documented On 11/02/2023 8:41AM By LIANG ALMANZA DO ; [facility] buPROPion HCl ER (XL) 300 MG Oral Tablet Extended Release 24 Hour 10/25/2023 Provider: LIANG ALMANZA DO Diagnosis: Anxiety disorder , unspecified 1 TABLET DAILY Last Documented On 10/25/2023 12:36PM By LIANG ALMANZA DO ; [facility] Methylphenidate HCl ER 20 MG Oral Tablet Extended Release 10/05/2023 Provider: LIANG BORJA DO Diagnosis: Attn-defct hyper activity disorder, predom inattentive type One tablet daily am Last Documented On 10/05/2023 8:25AM By LIANG ALMANZA DO ; [facility] Ondansetron 4 MG Oral Tablet Disintegrating 09/17/2023 Provider: LIANG ALMANZA DO Diagnosis: Nausea 1 every 4 - 6 hours as needed nausea Last Documented On 09/17/2023 6:46PM By LIANG ALMANZA DO ; [facility] ALPRAZolam 0.25 MG Oral Tablet 08/31/2023 Provider: [facility] Diagnosis: Anxiety disorder , unspecified TAKE 1/4-1 TABLET BY MOUTH E VERY 8-12 HOURS NEEDED FOR ANXIETY. MUST LAST AT LEAST 30 DAYS Last Documented On 1:24PM By [facility] ; [facility] buPROPion HCl ER (XL) 150 MG Oral Tablet Extended Release 24 Hour 07/11/2023 Provider: LIANG ALMANZA DO Diagnosis: Anxiety disorder , unspecified TAKE 1 TABLET BY MOUTH EVERY DAY IN THE MORNING Last Documented On 07/11/2023 9:37AM By LIANG ALMANZA DO ; [facility] Albuterol Sulfate HFA 108 (9 0 Base) MCG/ACT Inhalation Aerosol Solution 07/11/2023 Provider: LIANG MCFARLAEN DO Diagnosis: COVID-19 INHALE 1-2 PUFFS INTO THE STACIA NGS EVERY 4-12 HRS NEEDED FOR WHEEZE Last Documented On 07/11/2023 9:37AM By LIANG ALMANZA DO ; [facility] Methylphenidate HCl 5 MG Ora l Tablet 04/11/2023 Provider: LIANG ALMANZA DO Diagnosis: Attn-defct hyper activity disorder, predom inattentive type 1 pm work days Last Documented On 04/11/2023 10:34AM By LIANG ALMANZA DO ; [facility] Triamcinolone Acetonide 0.1% External Cream 11/29/2022 Provider: TIFF VAZQUEZ-[facility] Diagnosis: Dermatitis, unsp ecified apply to affected area 2 omega es daily. do not use for longer than 14 days in a row. Last Documented On 3 10:38AM By [facility] ; [facility] Nexplanon 68 MG Subcutaneous Implant 01/06/2022 Prov ider: Diagnosis: Last Documented On 03/07/2022 2:42PM By Lilliana Munroe Harry ; [facility] Flonase 50 MCG/ACT Nasal Suspension 04/09/2020 Provi harris: Diagnosis: Last Documented On 04/09/2020 10:25AM By Concepción Albright Harry ; [facility] ZyrTEC Allergy 10 MG Oral Tablet 04/09/2020 Provider : Diagnosis: Last Documented On 04/09/2020 10:25AM By Concepción Albright Harry ; [facility] EpiPen 2-Cory 0.3MG/0.3ML Injection Solution Auto-injec tor 12/19/2017 Provider: Diagnosis: Given to her by the ER Last Documented On 12/19/2017 10:12AM By PETER PRABHAKAR Harry ; [facility] Past Medications on file Methylphenidate HCl ER 20 MG Oral Tablet Extended Release 08/31/2023 - 10/05/2023 Provider: TIFF [facility] Diagnosis: Attn-defct hyperactivity disorder, predom inattentive type One tablet daily am Last Documented On 10/05/2023 8:19AM By LIANG ALMANZA DO ; [facility] Escitalopram Oxalate 20 MG Oral Tablet 08/06/2023 - 11/02/2023 Provider: LIANG ALMANZA DO Diagnosis: Major depressive disorder, single episode, unspecified TAKE 1 TABLET BY MOUTH EVERY DAY Last Documented On 11/02/2023 8:26AM By LIANG ALMANZA DO ; [facility] Methylphenidate HCl ER 20 MG Oral Tablet Extended Release 08/02/2023 - 08/31/2023 Provider: TIFF [facility] Diagnosis: Attn-defct hyperactivity disorder, predom inattentive type One tablet daily am Last Documented On 4 5:06PM By Tiff [facility] ; [facility] buPROPion HCl ER (XL) 300 MG Oral Tablet Extended Release 24 Hour 07/26/2023 - 10/25/2023 Provider: LIANG ALMANZA DO Diagnosis: Anxiety disorder , unspecified One tablet daily Last Documented On 10/25/2023 12:33PM By LIANG ALMANZA DO ; [facility] ALPRAZolam 0.25 MG Oral Tablet 07/17/2023 - 08/31/2023 Provider: LIANG ALMANZA DO Diagnosis: Anxiety disorder , unspecified TAKE 1/4-1 TABLET BY MOUTH E VERY 8-12 HOURS NEEDED FOR ANXIETY. MUST LAST AT LEAST 30 DAYS Last Documented On 1:14PM By Tiff [facility] ; [facility] Escitalopram Oxalate 20 MG Oral Tablet 07/09/2023 - 08/06/2023 Provider: LIANG ALMANZA DO Diagnosis: Major depressive disorder, single episode, unspecified TAKE 1 TABLET BY MOUTH EVERY DAY Last Documented On 08/06/2023 12:59PM By LIANG ALMANZA DO ; [facility] Methylphenidate HCl ER 20 MG Oral Tablet Extended Release 06/27/2023 - 08/02/2023 Provider: TIFF [facility] Diagnosis: Attn-defct hyperactivity disorder, predom inattentive type One tablet daily am Last Documented On 2:06PM By Tiff [facility] ; [facility] buPROPion HCl ER (XL) 150 MG Oral Tablet Extended Release 24 Hour 06/15/2023 - 07/11/2023 Provider: LIANG ALMANZA DO Diagnosis: Anxiety disorder , unspecified TAKE 1 TABLET BY MOUTH EVERY DAY IN THE MORNING Last Documented On 07/11/2023 9:28AM By LIANG ALMANZA DO ; [facility] Escitalopram Oxalate 20 MG Oral Tablet 06/07/2023 - 07/09/2023 Provider: LIANG ALMANZA DO Diagnosis: Major depressive disorder, single episode, unspecified TAKE 1 TABLET BY MOUTH EVERY DAY Last Documented On 07/09/2023 8:18AM By LIANG ALMANZA DO ; [facility] Methylphenidate HCl ER 20 MG Oral Tablet Extended Release 05/22/2023 - 06/27/2023 Provider: LIANG ALMANZA DO Diagnosis: Attn-defct hyperactivity disorder, predom inattentive type One tablet daily am Last Documented On 12:47PM By Tiff [facility] ; [facility] Benzonatate 100 MG Oral Capsule 04/13/2023 - Provider: LIANG ALMANZA DO Diagnosis: COVID-19 as directed 1-2 q 6 hours prn cough Last Documented On 04/13/2023 2:28PM By LIANG ALMANZA DO ; [facility] Methylphenidate HCl ER 20 MG Oral Tablet Extended Release 04/11/2023 - 05/22/2023 Provider: LIANG ALMANZA DO Diagnosis: Attn-defct hyperactivity disorder, predom inattentive type One tablet daily am Last Documented On 05/22/2023 6:52PM By LIANG ALMANZA DO ; [facility] ALPRAZolam 0.25 MG Oral Tablet 03/27/2023 - 07/17/2023 Provider: LIANG ALMANZA DO Diagnosis: Anxiety disorder , unspecified TAKE 1/4-1 TABLET BY MOUTH E VERY 8-12 HOURS NEEDED FOR ANXIETY. MUST LAST AT LEAST 30 DAYS Last Documented On 07/17/2023 5:48PM By LIANG ALMANZA DO ; [facility] Ondansetron 4 MG Oral Tablet Disintegrating 03/19/2023 - 09/17/2023 Provider: LIANG ALMANZA DO Diagnosis: Nausea 1 every 4 - 6 hours as needed nausea Last Documented On 09/17/2023 6:31PM By LIANG ALMANZA DO ; [facility] Lagevrio 200 MG Oral Capsule 03/19/2023 - 03/24/2023 Newton thomasder: LIANG ALMANZA DO Diagnosis: COVID-19 4 po bid x 5 Last Documented On 03/19/2023 12:59PM By LIANG ALMANZA DO ; [facility] buPROPion HCl ER (XL) 150 MG Oral Tablet Extended Release 24 Hour 03/17/2023 - 06/15/2023 Provider: LIANG ALMANZA DO Diagnosis: Anxiety disorder , unspecified TAKE 1 TABLET BY MOUTH EVERY DAY IN THE MORNING Last Documented On 06/15/2023 2:58PM By LIANG ALMANZA DO ; [facility] Methylphenidate HCl 5 MG Oral Tablet 02/21/2023 - 04/11/2023 Provider: TIFF [facility] Diagnosis: Attn-defct hyperactivity disorder, predom inattentive type 1 pm work days Last Documented On 04/11/2023 10:26AM By LIANG ALMANZA DO ; [facility] Methylphenidate HCl ER 20 MG Oral Tablet Extended Release 02/21/2023 - 04/11/2023 Provider: TIFF [facility] Diagnosis: Attn-defct hyperactivity disorder, predom inattentive type One tablet daily am Last Documented On 04/11/2023 10:30AM By LIANG ALMANZA DO ; [facility] Methylphenidate HCl 5 MG Oral Tablet 01/17/2023 - 02/21/2023 Provider: LIANG ALMANZA DO Diagnosis: Attn-defct hyperactivity disorder, predom inattentive type 1 pm work days Last Documented On 3 11:38AM By Tiff [facility] ; [facility] Methylphenidate HCl ER 20 MG Oral Tablet Extended Release 01/17/2023 - 02/21/2023 Provider: LIANG ALMANZA DO Diagnosis: Attn-defct hyperactivity disorder, predom inattentive type One tablet daily am Last Documented On 3 11:37AM By Tiff [facility] ; [facility] buPROPion HCl ER (XL) 150 MG Oral Tablet Extended Release 24 Hour 12/19/2022 - 03/17/2023 Provider: LIANG ALMANZA DO Diagnosis: Anxiety disorder , unspecified TAKE 1 TABLET BY MOUTH EVERY DAY IN THE MORNING Last Documented On 03/17/2023 9:05AM By LIANG ALMANZA DO ; [facility] ALPRAZolam 0.25 MG Oral Tablet 12/14/2022 - 03/27/2023 Provider: LIANG ALMANZA DO Diagnosis: Anxiety disorder , unspecified TAKE 1/4-1 TABLET BY MOUTH E VERY 8-12 HOURS NEEDED FOR ANXIETY. MUST LAST AT LEAST 30 DAYS Last Documented On 03/27/2023 1:40PM By LIANG ALMANZA DO ; [facility] Methylphenidate HCl ER 20 MG Oral Tablet Extended Release 12/14/2022 - 01/17/2023 Provider: LIANG ALMANZA DO Diagnosis: Attn-defct hyperactivity disorder, predom inattentive type One tablet daily am Last Documented On 01/17/2023 2:50PM By LIANG ALMANZA DO ; [facility] Methylphenidate HCl 5 MG Oral Tablet 12/14/2022 - 01/17/2023 Provider: LIANG ALMANZA DO Diagnosis: Attn-defct hyperactivity disorder, predom inattentive type 1 pm work days Last Documented On 01/17/2023 2:51PM By LIANG ALMANZA DO ; [facility] Escitalopram Oxalate 20 MG Oral Tablet 12/12/2022 - 06/07/2023 Provider: LIANG ALMANZA DO Diagnosis: Major depressive disorder, single episode, unspecified TAKE 1 TABLET BY MOUTH EVERY DAY Last Documented On 06/07/2023 12:05PM By LIANG ALMANZA DO ; [facility] Methylphenidate HCl 5 MG Oral Tablet 11/08/2022 - 12/14/2022 Provider: LIANG ALMANZA DO Diagnosis: Attn-defct hyperactivity disorder, predom inattentive type 1 pm work days Last Documented On 12/14/2022 3:34PM By LIANG ALMANZA DO ; [facility] Methylphenidate HCl ER 20 MG Oral Tablet Extended Release 11/03/2022 - 12/14/2022 Provider: LIANG ALMANZA DO Diagnosis: Attn-defct hyperactivity disorder, predom inattentive type One tablet daily am Last Documented On 12/14/2022 3:34PM By LIANG ALMANZA DO ; [facility] Albuterol Sulfate HFA 108 (9 0 Base) MCG/ACT Inhalation Aerosol Solution 10/19/2022 - 07/11/2023 Provider: LIANG ALMANZA DO Diagnosis: COVID-19 INHALE 1-2 PUFFS INTO THE STACIA NGS EVERY 4-12 HRS NEEDED FOR WHEEZE Last Documented On 07/11/2023 9:28AM By LIANG ALMANZA DO ; [facility] Methylphenidate HCl ER 20 MG Oral Tablet Extended Release 10/05/2022 - 11/03/2022 Provider: LIANG ALMANZA DO Diagnosis: Attn-defct hyperactivity disorder, predom inattentive type One tablet daily am Last Documented On 11/03/2022 12:43PM By LIANG ALMANZA DO ; [facility] Methylphenidate HCl 5 MG Oral Tablet 10/05/2022 - 11/08/2022 Provider: LIANG ALMANZA DO Diagnosis: Attn-defct hyperactivity disorder, predom inattentive type 1 pm work days Last Documented On 11/08/2022 1:09PM By LIANG ALMANZA DO ; [facility] buPROPion HCl ER (XL) 150 MG Oral Tablet Extended Release 24 Hour 09/18/2022 - 12/19/2022 Provider: LIANG ALMANZA DO Diagnosis: Anxiety disorder , unspecified 1 Capsule every morning Last Documented On 12/19/2022 10:24AM By LIANG ALMANZA DO ; [facility] ALPRAZolam 0.25 MG Oral Tablet 09/16/2022 - 12/14/2022 Provider: LIANG ALMANZA DO Diagnosis: Anxiety disorder , unspecified TAKE 1/4-1 TABLET BY MOUTH E VERY 8-12 HOURS NEEDED FOR ANXIETY. MUST LAST AT LEAST 30 DAYS Last Documented On 12/14/2022 3:32PM By LIANG ALMANZA DO ; [facility] Methylphenidate HCl 5 MG Oral Tablet 08/29/2022 - 10/05/2022 Provider: LIANG ALMANZA DO Diagnosis: Attn-defct hyperactivity disorder, predom inattentive type 1 pm work days Last Documented On 10/05/2022 12:34PM By LIANG ALMANZA DO ; [facility] Methylphenidate HCl ER 20 MG Oral Tablet Extended Release 08/29/2022 - 10/05/2022 Provider: LIANG ALMANZA DO Diagnosis: Attn-defct hyperactivity disorder, predom inattentive type One tablet daily am Last Documented On 10/05/2022 12:34PM By LIANG ALMANZA DO ; [facility] ALPRAZolam 0.25 MG Oral Tablet 08/14/2022 - 09/16/2022 Provider: LIANG ALMANZA DO Diagnosis: Anxiety disorder , unspecified TAKE 1/4-1 TABLET BY MOUTH E VERY 8-12 HOURS NEEDED FOR ANXIETY. MUST LAST AT LEAST 30 DAYS Last Documented On 09/16/2022 3:11PM By LIANG ALMANZA DO ; [facility] ALPRAZolam 0.25 MG Oral Tablet 08/09/2022 - 08/14/2022 Provider: SAIDA WOOD PA-C Diagnosis: Anxiety disorder , unspecified TAKE 1/4-1 TABLET BY MOUTH E VERY 8-12 HOURS NEEDED FOR ANXIETY. MUST LAST AT LEAST 30 DAYS Last Documented On 08/14/2022 12:50PM By LIANG ALMANZA DO ; [facility] Albuterol Sulfate HFA 108 (9 0 Base) MCG/ACT Inhalation Aerosol Solution 08/09/2022 - 10/19/2022 Provider: LIANG ALMANZA DO Diagnosis: COVID-19 INHALE 1-2 PUFFS INTO THE STACIA NGS EVERY 4-12 HRS NEEDED FOR WHEEZE Last Documented On 10/19/2022 9:48AM By LIANG ALMANZA DO ; [facility] Methylphenidate HCl 5 MG Oral Tablet 07/26/2022 - 08/29/2022 Provider: LIANG ALMANZA DO Diagnosis: Attn-defct hyperactivity disorder, predom inattentive type 1 pm work days Last Documented On 08/29/2022 1:16PM By LIANG ALMANZA DO ; [facility] Methylphenidate HCl ER 20 MG Oral Tablet Extended Release 07/26/2022 - 08/29/2022 Provider: LIANG ALMANZA DO Diagnosis: Attn-defct hyperactivity disorder, predom inattentive type One tablet daily am Last Documented On 08/29/2022 1:15PM By LIANG ALMANZA DO ; [facility] Methylphenidate HCl 5 MG Oral Tablet 06/27/2022 - 07/25/2022 Provider: FAUSTINO SHELTON PA-C Diagnosis: Attn-defct hyperactivity disorder, predom inattentive type 1 pm work days Last Documented On 07/26/2022 8:54AM By LIANG ALMANZA DO ; [facility] Methylphenidate HCl ER 20 MG Oral Tablet Extended Release 06/27/2022 - 07/25/2022 Provider: LIANG ALMANZA DO Diagnosis: Attn-defct hyperactivity disorder, predom inattentive type One tablet daily am Last Documented On 07/26/2022 8:54AM By LIANG ALMANZA DO ; [facility] Methylphenidate HCl 5 MG Oral Tablet 06/20/2022 - 06/27/2022 Provider: LIANG ALMANZA DO Diagnosis: Attn-defct hyperactivity disorder, predom inattentive type 1 pm work days Last Documented On 5:08PM By FAUSTINO SHELTON PA-C ; [facility] Methylphenidate HCl ER 20 MG Oral Tablet Extended Release 06/20/2022 - 06/27/2022 Provider: LIANG ALMANZA DO Diagnosis: Attn-defct hyperactivity disorder, predom inattentive type One tablet daily am Last Documented On 06/27/2022 1:42PM By LIANG ALMANZA DO ; [facility] buPROPion HCl ER (XL) 150 MG Oral Tablet Extended Release 24 Hour 06/15/2022 - 09/18/2022 Provider: LIANG ALMANZA DO Diagnosis: Anxiety disorder , unspecified 1 Capsule every morning Last Documented On 09/18/2022 9:46AM By LIANG ALMANZA DO ; [facility] Methylphenidate HCl 5 MG Oral Tablet 05/19/2022 - 06/20/2022 Provider: LIANG ALMANZA DO Diagnosis: Attn-defct hyperactivity disorder, predom inattentive type 1 pm work days Last Documented On 06/20/2022 5:53PM By LIANG ALMANZA DO ; [facility] Methylphenidate HCl ER 20 MG Oral Tablet Extended Release 05/19/2022 - 06/20/2022 Provider: LIANG ALMANZA DO Diagnosis: Attn-defct hyperactivity disorder, predom inattentive type One tablet daily am Last Documented On 06/20/2022 5:52PM By LIANG ALMANZA DO ; [facility] Methylphenidate HCl 5 MG Oral Tablet 04/18/2022 - 05/19/2022 Provider: LIANG ALMANZA DO Diagnosis: Attn-defct hyperactivity disorder, predom inattentive type 1 pm work days Last Documented On 05/19/2022 3:57PM By LIANG ALMANZA DO ; [facility] Methylphenidate HCl ER 20 MG Oral Tablet Extended Release 04/18/2022 - 05/19/2022 Provider: LIANG ALMANZA DO Diagnosis: Attn-defct hyperactivity disorder, predom inattentive type One tablet daily am Last Documented On 05/19/2022 3:50PM By LIANG ALMANZA DO ; [facility] Methylphenidate HCl ER 20 MG Oral Tablet Extended Release 03/17/2022 - 04/18/2022 Provider: LIANG ALMAZNA DO Diagnosis: Attn-defct hyperactivity disorder, predom inattentive type One tablet daily am Last Documented On 04/18/2022 1:19PM By LIANG ALMANZA DO ; [facility] buPROPion HCl ER (XL) 150 MG Oral Tablet Extended Release 24 Hour 03/07/2022 - 06/15/2022 Provider: LIANG ALMANZA DO Diagnosis: Anxiety disorder , unspecified TAKE 1 TABLET BY MOUTH EVERY DAY IN THE MORNING Last Documented On 06/15/2022 12:14PM By LIANG ALMANZA DO ; [facility] Methylphenidate HCl ER 20 MG Oral Tablet Extended Release 02/14/2022 - 03/17/2022 Provider: LIANG ALMANZA DO Diagnosis: Attn-defct hyperactivity disorder, predom inattentive type One tablet daily am Last Documented On 03/17/2022 3:30PM By LIANG ALMANZA DO ; [facility] Methylphenidate HCl ER 20 MG Oral Tablet Extended Release 01/11/2022 - 02/14/2022 Provider: LIANG ALMANZA DO Diagnosis: Attn-defct hyperactivity disorder, predom inattentive type One tablet daily am Last Documented On 02/14/2022 10:53AM By LIANG ALMANZA DO ; [facility] Escitalopram Oxalate 20 MG Oral Tablet 12/12/2021 - 12/12/2022 Provider: LIANG ALMANZA DO Diagnosis: Major depressive disorder, single episode, unspecified TAKE 1 TABLET BY MOUTH EVERY DAY Last Documented On 12/12/2022 9:51AM By LIANG ALMANZA DO ; [facility] Methylphenidate HCl ER 20 MG Oral Tablet Extended Release 12/12/2021 - 01/11/2022 Provider: LIANG ALMANZA DO Diagnosis: Attn-defct hyperactivity disorder, predom inattentive type One tablet daily am Last Documented On 01/11/2022 10:12AM By LIANG ALMANZA DO ; [facility] Methylphenidate HCl 5 MG Oral Tablet 12/12/2021 - 04/18/2022 Provider: LIANG ALMANZA DO Diagnosis: Attn-defct hyperactivity disorder, predom inattentive type 1 pm work days Last Documented On 04/18/2022 1:20PM By LIANG ALMANZA DO ; [facility] buPROPion HCl ER (XL) 150 MG Oral Tablet Extended Release 24 Hour 12/12/2021 - 03/07/2022 Provider: LIANG ALMANZA DO Diagnosis: Anxiety disorder , unspecified TAKE 1 TABLET BY MOUTH EVERY DAY IN THE MORNING Last Documented On 03/07/2022 3:03PM By Johann Blandon ; [facility] ALPRAZolam 0.25 MG Oral Tablet 12/12/2021 - 08/09/2022 Provider: LIANG ALMANZA DO Diagnosis: Anxiety disorder , unspecified TAKE 1/4-1 TABLET BY MOUTH E VERY 8-12 HOURS NEEDED FOR ANXIETY. MUST LAST AT LEAST 30 DAYS Last Documented On 4:31PM By Saida Wood PA-C ; [facility] ALPRAZolam 0.25 MG Oral Tablet 11/14/2021 - 12/12/2021 Provider: LIANG ALMANZA DO Diagnosis: Anxiety disorder , unspecified TAKE 1/4-1 TABLET BY MOUTH E VERY 8-12 HOURS NEEDED FOR ANXIETY. MUST LAST AT LEAST 30 DAYS Last Documented On 12/12/2021 5:00PM By LIANG ALMANZA DO ; [facility] Methylphenidate HCl ER 20 MG Oral Tablet Extended Release 11/10/2021 - 12/12/2021 Provider: LIANG ALMANZA DO Diagnosis: Attn-defct hyperactivity disorder, predom inattentive type One tablet daily am Last Documented On 12/12/2021 4:59PM By LIANG ALMANZA DO ; [facility] Methylphenidate HCl ER 20 MG Oral Tablet Extended Release 10/11/2021 - 11/10/2021 Provider: LIANG ALMANZA DO Diagnosis: Attn-defct hyperactivity disorder, predom inattentive type One tablet daily am Last Documented On 11/10/2021 9:53AM By LIANG ALMANZA DO ; [facility] Methylphenidate HCl 5 MG Oral Tablet 09/30/2021 - 12/12/2021 Provider: LIANG ALMANZA DO Diagnosis: Attn-defct hyperactivity disorder, predom inattentive type 1 pm work days Last Documented On 12/12/2021 4:58PM By LIANG ALMANZA DO ; [facility] buPROPion HCl ER (XL) 150 MG Oral Tablet Extended Release 24 Hour 09/13/2021 - 12/12/2021 Provider: LIANG ALMANZA DO Diagnosis: Anxiety disorder , unspecified TAKE 1 TABLET BY MOUTH EVERY DAY IN THE MORNING Last Documented On 12/12/2021 4:58PM By LIANG ALMANZA DO ; [facility] Escitalopram Oxalate 20 MG Oral Tablet 09/13/2021 - 12/12/2021 Provider: LIANG ALMANZA DO Diagnosis: Major depressive disorder, single episode, unspecified TAKE 1 TABLET BY MOUTH EVERY DAY Last Documented On 12/12/2021 4:59PM By LIANG ALMANZA DO ; [facility] Methylphenidate HCl ER 20 MG Oral Tablet Extended Release 09/13/2021 - 10/11/2021 Provider: LIANG ALMANZA DO Diagnosis: Attn-defct hyperactivity disorder, predom inattentive type One tablet daily am Last Documented On 10/11/2021 12:14PM By LIANG ALMANZA DO ; [facility] ALPRAZolam 0.25 MG Oral Tablet 09/13/2021 - 11/14/2021 Provider: LIANG ALMANZA DO Diagnosis: Anxiety disorder , unspecified TAKE 1/4-1 TABLET BY MOUTH E VERY 8-12 HOURS NEEDED FOR ANXIETY. MUST LAST AT LEAST 30 DAYS Last Documented On 11/14/2021 11:02AM By LIANG ALMANZA DO ; [facility] Methylphenidate HCl ER (CD) 10 MG Oral Capsule Extended Release 08/15/2021 - 11/14/2021 Provider: LIANG ALMANZA DO Diagnosis: Attn-defct hyperactivity disorder, predom inattentive type 1 Capsule every morning Last Documented On 11/14/2021 10:45AM By Lilliana GALINDO ; [facility] ALPRAZolam 0.25 MG Oral Tablet 07/20/2021 - 09/13/2021 Provider: LIANG ALMANZA DO Diagnosis: Anxiety disorder , unspecified TAKE 1/4-1 TABLET BY MOUTH E VERY 8-12 HOURS NEEDED FOR ANXIETY. MUST LAST AT LEAST 30 DAYS Last Documented On 09/13/2021 5:58PM By LIANG ALMANZA DO ; [facility] Azithromycin 250 MG Oral Tablet 06/28/2021 - 08/15/2021 Provider: LIANG ALMANZA DO Diagnosis: Otitis media, unspecified, right ear as directed 2 PILLS DAY 1 , 1 PILL DAY 2-5 WITH FOOD Last Documented On 08/15/2021 11:01AM By Lilliana GALINDO ; [facility] Escitalopram Oxalate 20 MG Oral Tablet 06/14/2021 - 09/13/2021 Provider: LIANG ALMANZA DO Diagnosis: Major depressive disorder, single episode, unspecified TAKE 1 TABLET BY MOUTH EVERY DAY Last Documented On 09/13/2021 5:56PM By LIANG ALMANZA DO ; [facility] buPROPion HCl ER (XL) 150 MG Oral Tablet Extended Release 24 Hour 06/14/2021 - 09/13/2021 Provider: LIANG ALMANZA DO Diagnosis: Anxiety disorder , unspecified TAKE 1 TABLET BY MOUTH EVERY DAY IN THE MORNING Last Documented On 09/13/2021 5:56PM By LIANG ALMANZA DO ; [facility] ALPRAZolam 0.25 MG Oral Tablet 06/14/2021 - 07/20/2021 Provider: LIANG ALMANZA DO Diagnosis: Anxiety disorder , unspecified TAKE 1/4-1 TABLET BY MOUTH E VERY 8-12 HOURS NEEDED FOR ANXIETY Last Documented On 07/20/2021 9:39PM By LIANG ALMANZA DO ; [facility] Medrol 4 MG Oral Tablet Therapy Pack 05/31/2021 - 06/28/2021 Provider: LIANG ALMANZA DO Diagnosis: Neuralgia and ne uritis, unspecified as directed Last Documented On 06/28/2021 6:39PM By Lilliana GALINDO ; [facility] buPROPion HCl ER (XL) 150 MG Oral Tablet Extended Release 24 Hour 04/04/2021 - 06/14/2021 Provider: LIANG ALMANZA DO Diagnosis: Anxiety disorder , unspecified 1 Capsule every morning Last Documented On 06/14/2021 8:09PM By LIANG ALMANZA DO ; [facility] buPROPion HCl ER (SR) 100 MG Oral Tablet Extended Release 12 Hour 03/30/2021 - 04/04/2021 Provider: LIANG ALMANZA DO Diagnosis: Major depressive disorder, single episode, unspecified One tablet daily Last Documented On 04/04/2021 11:22AM By LIANG ALMANZA DO ; [facility] ALPRAZolam 0.25 MG Oral Tablet 03/21/2021 - 06/14/2021 Provider: LIANG ALMANZA DO Diagnosis: Anxiety disorder , unspecified TAKE 1/4-1 TABLET BY MOUTH E VERY 8-12 HOURS NEEDED FOR ANXIETY Last Documented On 06/14/2021 7:59PM By LIANG ALMANZA DO ; [facility] Escitalopram Oxalate 20 MG Oral Tablet 03/21/2021 - 06/14/2021 Provider: LIANG ALMANZA DO Diagnosis: Major depressive disorder, single episode, unspecified TAKE 1 TABLET BY MOUTH EVERY DAY Last Documented On 06/14/2021 8:10PM By LIANG ALMANZA DO ; [facility] ALPRAZolam 0.25 MG Oral Tablet 02/08/2021 - 03/21/2021 Provider: LIANG ALMANZA DO Diagnosis: TAKE 1/4-1 TABLET BY MOUTH E VERY 8-12 HOURS NEEDED FOR ANXIETY Last Documented On 03/21/2021 3:12PM By LIANG ALMANZA DO ; [facility] ProAir HFA 108 (90 Base) MCG /ACT Inhalation Aerosol Solution 01/13/2021 - 08/09/2022 Provider: LIANG BAUTISTA DO Diagnosis: COVID-19 1-2 puff q4-12 hours prn wheeze Last Documented On 3:51PM By ALTA DANIELSON Harry ; [facility] Albuterol Sulfate 2.5 MG/0.5ML Inhalation Nebulization solution 01/13/2021 - 09/13/2021 Provider: LIANG ALMANZA DO Diagnosis: Dyspnea, unspeci fied 1 every 6 hours as needed Last Documented On 09/13/2021 10:42AM By Lilliana GALINDO ; [facility] ALPRAZolam 0.25 MG Oral Tablet 01/12/2021 - 02/08/2021 Provider: LIANG ALMANZA DO Diagnosis: Anxiety disorder , unspecified TAKE 1/4-1 TABLET BY MOUTH E VERY 8-12 HOURS NEEDED FOR ANXIETY Last Documented On 02/08/2021 7:23PM By LIANG ALMANZA DO ; [facility] Escitalopram Oxalate 20 MG Oral Tablet 12/10/2020 - 03/21/2021 Provider: LIANG ALMANZA DO Diagnosis: Major depressive disorder, single episode, unspecified TAKE 1 TABLET BY MOUTH EVERY DAY Last Documented On 03/21/2021 3:11PM By LIANG ALMANZA DO ; [facility] ALPRAZolam 0.25 MG Oral Tablet 12/01/2020 - 01/12/2021 Provider: LIANG ALMANZA DO Diagnosis: Anxiety disorder , unspecified TAKE 1/4-1 TAB EVERY 8-12 HO URS NEEDED FOR ANXIETY Last Documented On 01/12/2021 12:18PM By LIANG ALMANZA DO ; [facility] ALPRAZolam 0.25 MG Oral Tablet 10/22/2020 - 12/01/2020 Provider: LIANG ALMANZA DO Diagnosis: Anxiety disorder , unspecified TAKE 1/4-1 TAB EVERY 8-12 HO URS NEEDED FOR ANXIETY Last Documented On 12/01/2020 2:34PM By LIANG ALMANZA DO ; [facility] Escitalopram Oxalate 20 MG O ral Tablet 09/15/2020 - 12/10/2020 Provider: LIANG ALMANZA DO Diagnosis: TAKE 1 TABLET BY MOUTH EVERY DAY Last Documented On 12/10/2020 2:49PM By LIANG ALMANZA DO ; [facility] ALPRAZolam 0.25 MG Oral Tablet 08/19/2020 - 10/22/2020 Provider: LIANG ALMANZA DO Diagnosis: Anxiety disorder , unspecified as directed 1/4 to 1 q 8 to 12 hrs prn anxiety Last Documented On 10/22/2020 4:07PM By LIANG ALMANZA DO ; [facility] Lexapro 20 MG Oral Tablet 06/23/2020 - 09/15/2020 Prov ider: LIANG ALMANZA DO Diagnosis: Take one tab daily Last Documented On 09/15/2020 4:26PM By LIANG ALMANZA DO ; [facility] ALPRAZolam 0.25 MG Oral Tablet 06/14/2020 - 08/19/2020 Provider: LIANG ALMANZA DO Diagnosis: Anxiety disorder , unspecified as directed /4 to 1 q 8 to 12 hrs prn anxiety Last Documented On 08/19/2020 2:03PM By LIANG ALMANZA DO ; [facility] Lexapro 10 MG Oral Tablet 05/05/2020 - 06/23/2020 Provider: LIANG ALMANZA DO Diagnosis: Major depressive disorder, single episode, unspecified One tablet daily Last Documented On 06/23/2020 9:05AM By Meredith Mcgrath LPN ; [facility] ALPRAZolam 0.25 MG Oral Tablet 04/09/2020 - 06/14/2020 Provider: LIANG ALMANZA DO Diagnosis: Anxiety disorder , unspecified as directed 1/4 to 1 q 8 to 12 hrs prn anxiety Last Documented On 06/14/2020 8:25AM By LIANG ALMANZA DO ; [facility] Lexapro 10 MG Oral Tablet 04/09/2020 - 05/05/2020 Provider: LIANG ALMANZA DO Diagnosis: Major depressive disorder, single episode, unspecified One tablet daily Last Documented On 05/05/2020 1:49PM By ANDRES HURTADO ; [facility] traMADol HCl 50 MG Oral Tablet 11/28/2019 - 04/09/2020 Provider: LIANG ALMANZA DO Diagnosis: Calculus of gall bladder w chronic cholecyst w/o obstruction 1 every 6 hours as needed Last Documented On 04/09/2020 10:24AM By Concepción GALINDO ; [facility] Albuterol Sulfate 2.5 MG/0.5 ML Inhalation Nebulization solution 11/25/2019 - 01/13/2021 Provider: Diagnosis: Last Documented On 01/13/2021 3:24PM By LIANG ALMANZA DO ; [facility] Bactrim DS 800-160 MG Oral Tablet 01/04/2019 - 11/25/2019 Provider: LIANG ALMANZA DO Diagnosis: Ingrowing nail One tablet twice a day Last Documented On 11/25/2019 10:07AM By PHUONG ; [facility] Nexplanon 68 MG Subcutaneous Implant 12/23/2018 - 110 05/2021 Provider: Diagnosis: Last Documented On 03/07/2022 2:42PM By Lilliana GALINDO ; [facility] Fluticasone Propionate 50 MCG/ACT NA SUSP 10/25/2010 - 12/19/2017 Provider: DREA Corey Diagnosis: LABYRINTHITIS NO S 2 sprays each nostril qd Last Documented On 12/19/2017 10:10AM By PETER GALINDO ; [facility] Meclizine HCl 25 MG OR TABS 10/25/2010 - 12/19/2017 Provider: DREA Corey Diagnosis: LABYRINTHITIS NO S prn for dizziness Last Documented On 12/19/2017 10:10AM By PETER GALINDO ; [facility] Nystatin 355032 UNIT/GM EX CREA 07/16/2009 - 8 Provider: DREA MCGUIRE PA-C Diagnosis: for 14-28 days Last Documented On 12/19/2017 10:10AM By PETER GALINDO ; [facility] Augmentin 875-125 MG OR TABS 07/16/2009 - 12/19/2017 Provider: DREA Corey Diagnosis: Inflam Disease O f Breast Last Documented On 12/19/2017 10:10AM By PETER GALINDO ; [facility] NexIUM 40 MG OR CPDR 07/01/2008 - 12/19/2017 Provider: Diagnosis: Last Documented On 12/19/2017 10:10AM By PETER GALINDO ; [facility] Medications Administered Includes: Administered Medications in patient's chart No Administered Medications Recorded Vital Signs Includes: Vital Signs from 06/28/2023 through 06/28/2024 Vital Name 08/24/2023 10:54A 07/17/2023 04: 23P Oxygen Saturation (%) 97 97 Blood Pressure Sitting L 122/80 Pulse Rate-Sitting (bpm) 71 72 Respiration Rate (breaths/min) 20 20 Height (in) 61.5 61.5 Weight (lb) 244 241.25 Body Mass Index 45.4 44.8 Body Surface Area (m2) 2.1 2.1 Blood Pressure Sitting R 122/82 Last Documented: On 08/24/2023 10:56A M ; [facility] On 07/17/2023 4:23PM ; [facility] Results Includes: Results from 06/28/2023 through 06/28/2024 No Results Recorded For Specified Dates History of Present Illness History of Present Illness not supported for this document type No History of Present Illness Recorded Social History Description Last Updated 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 08/24/2023 Last Documented On 4 7:44AM ; [facility] Not recovering from substance abuse 08/05 Last Documented On 4 7:44AM ; [facility] Tobacco non-user 07/25/2022 Last Documented On 3 8:11PM ; [facility] Using marijuana 02/08/2021 Last Documented On 1 9:48PM ; [facility] Smoking Status Unknown Medical History Includes: Medical History in patient's chart Description Last Updated LMP: nexplanon 07/25/2022 Last Documented On 3 8:11PM ; [facility] Surgery 2001- KNEE SURGERY 11/23/2008 Last Documented On 9 5:12PM ; [facility] Family History Includes: Family History in patient's chart Description Last Updated Family history of asthma 09/13/2021 Last Documented On 2 10:09PM ; [facility] Family history of diabetes mellitus 09/04 Last Documented On 2 10:09PM ; [facility] Family history of systemic hypertension 09/13/2021 Last Documented On 2 10:09PM ; [facility] Family history reviewed - unchanged sinc e last visit 01/03/2019 Last Documented On 9 4:17PM ; [facility] Father HIGH BLOOD PRESSURE 11/23/2008 Last Documented On 9 5:12PM ; [facility] Review of Systems Review of Systems not supported for this document type No Review of Systems Recorded Mental Status No Mental Status Recorded Functional Status No Functional Status Recorded Physical Exam Physical Exam not supported for this document type No Physical Exam Recorded Immunizations Includes: Immunizations in patient's chart Vaccine Dose # Date Site Reaction(s) Status Source COVID-19 [facility] 1 07/09/2020 Complete (Re ported) Patient Last Documented On 1 2:23PM ; [facility] Influenza (Quadrivalent) PF 0.5ml 1 03/07/2022 Left Deltoid Complete (Administered) [facility] Last Documented On 2 3:32PM ; [facility] 1 07/09/2020 Complete (Reported) P atient Last Documented On 2 3:03PM ; [facility] Allergies Includes: Active, inactive, and resolved Allergies No Known Allergies Encounters Includes: Encounters from 06/28/2023 through 06/28/2024 Encounter Provider Location Date Check-In Time Check-Out Time Diagnosis CHECK UP LIANG ALMANZA [facility] 024 08/24/2023 2:00PM 08/24/2023 11:59PM CHECK UP LIANG ALMANZA [facility] 024 10:39AM 11:08AM Anxiety Disorder Mixed,Major Depression Recurrent Moderate with Anxiety * PHONE CALL LIANG ALMANZA DO 024 07/17/2023 11:40AM 07/17/2023 11:59PM CHECK UP LIANG ALMANZA DO [facility] 024 4:21PM 4:57PM Major Depression Recurrent Moderate with Anxiety,Anxiety Disorder Mixed,Adhd, Predominantly Inattentive Type,Ovarian Cyst Other Insurance Includes: Active Insurance Policies Plan Name Member ID Group # Subscriber Relationship Effect palmer Dates 1 - [employer] [id number] BRENDA AGRCÍA Self 11/04/2020 - Unknown Clinical Notes Includes: Signed Clinical Notes starting from 05/26/2022 * Progress note Date Encounter Last Documented by 08/24/2023 CHECK UP Last documented on 08/26/2023; 7:44 AM, LIANG ALMANZA DO; [facility] Active Problems & Conditions - [...] on 07/26/2023; 12:42 PM, LIANG ALMANZA DO; [facility] Active Problems & Conditions - [...] on 07/21/2023; 3:39 PM, LIANG ALMANZA DO; [facility] Active Problems & Conditions - [...] of water and stay hydrated. [facility] Other Johann Blandon, scribing the following service on behalf of Dr. Liang Almanza, D.O.
--- OUTSIDE RECORDS SUMMARY | 2024-06-28 19:08 | XMS_ITS | Clinical Summary ---
Author Organization [facility] Address [address] [place] [address] Phone Care Team Providers Care Electrical Maintenance Man Name Role Phone LIANG ALMANZA DO Primary Care Provider [phone] Reason for Visit and Chief Complaint * PHONE CALL Problems Includes: Problems addressed during this encounter and other active Problems All Visits Onset Date Resolved Date Provider Condition S tatus Anxiety Disorder Mixed 07/28/2022 LIANG HASSAN DO Active Last Documented On 3 8:10PM ; [facility] Adhd, 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 LIANG ALMANZA DO Active Last Documented On 2 10:05PM ; [facility] 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 05/05/2020 LIANG ALMANZA DO Active Last Documented On 0 1:48PM ; [facility] 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 11/28/2019 LIANG ALMANZA DO Active Last Documented On 0 12:42PM ; [facility] Plan of Treatment No Plan of Treatment [...] 1-2 q 6 hours prn cough Pharmacy: [address], [address] - Last Documented On 04/13/2023 2:28PM By LIANG ALMANZA DO ; [facility] Current Medications (continue as prescribed) Escitalopram Oxalate 20 MG Oral Tablet 11/02/2023 Provider: LIANG ALMANZA DO Diagnosis: Major depressive disorder, single episode, unspecified TAKE 1 TABLET BY MOUTH EVERY DAY Last Documented On 11/02/2023 8:41AM By LIANG ALMANZA DO ; [facility] buPROPion HCl ER (XL) 300 MG Oral Tablet Extended Release 24 Hour 10/25/2023 Provider: LIANG ALMANZA DO Diagnosis: Anxiety disorder , unspecified 1 TABLET DAILY Last Documented On 10/25/2023 12:36PM By LIANG ALMANZA DO ; [facility] Methylphenidate HCl ER 20 MG Oral Tablet Extended Release 10/05/2023 Provider: LIANG BORJA DO Diagnosis: Attn-defct hyper activity disorder, predom inattentive type One tablet daily am Last Documented On 10/05/2023 8:25AM By LIANG ALMANZA DO ; [facility] Ondansetron 4 MG Oral Tablet Disintegrating 09/17/2023 Provider: LIANG ALMANZA DO Diagnosis: Nausea 1 every 4 - 6 hours as needed nausea Last Documented On 09/17/2023 6:46PM By LIANG ALMANZA DO ; [facility] ALPRAZolam 0.25 MG Oral Tablet 08/31/2023 Provider: [facility] Diagnosis: Anxiety disorder , unspecified TAKE 1/4-1 TABLET BY MOUTH E VERY 8-12 HOURS NEEDED FOR ANXIETY. MUST LAST AT LEAST 30 DAYS Last Documented On 1:24PM [facility] ; [facility] buPROPion HCl ER (XL) 150 MG Oral Tablet Extended Release 24 Hour 07/11/2023 Provider: LIANG ALMANZA DO Diagnosis: Anxiety disorder , unspecified TAKE 1 TABLET BY MOUTH EVERY DAY IN THE MORNING Last Documented On 07/11/2023 9:37AM By LIANG ALMANZA DO ; [facility] Albuterol Sulfate HFA 108 (9 0 Base) MCG/ACT Inhalation Aerosol Solution 07/11/2023 Provider: LIANG MCFARLANE DO Diagnosis: COVID-19 INHALE 1-2 PUFFS INTO THE STACIA NGS EVERY 4-12 HRS NEEDED FOR WHEEZE Last Documented On 07/11/2023 9:37AM By LIANG ALMANZA DO ; [facility] Methylphenidate HCl 5 MG Ora l Tablet 04/11/2023 Provider: LIANG ALMAZNA DO Diagnosis: Attn-defct hyper activity disorder, predom inattentive type 1 pm work days Last Documented On 04/11/2023 10:34AM By LIANG ALMANZA DO ; [facility] Triamcinolone Acetonide 0.1% External Cream 11/29/2022 Provider: TIFF BR[facility]SON [facility] Diagnosis: Dermatitis, unsp ecified apply to affected area 2 omgea es daily. do not use for longer than 14 days in a row. Last Documented On 10:38AM By [facility] ; [facility] Nexplanon 68 MG Subcutaneous Implant 01/06/2022 Prov ider: Diagnosis: Last Documented On 03/07/2022 2:42PM By Lilliana GALINDO ; [facility] Flonase 50 MCG/ACT Nasal Suspension 04/09/2020 Provi harris: Diagnosis: Last Documented On 04/09/2020 10:25AM By Concepción GALINDO ; [facility] ZyrTEC Allergy 10 MG Oral Tablet 04/09/2020 Provider : Diagnosis: Last Documented On 04/09/2020 10:25AM By Concepción GALINDO ; [facility] EpiPen 2-Cory 0.3MG/0.3ML Injection Solution Auto-injec tor 12/19/2017 Provider: Diagnosis: Given to her by the ER Last Documented On 12/19/2017 10:12AM By PETER GALINDO ; [facility] Past Medications on file Lagevrio 200 MG Oral Capsule 03/19/2023 - 03/24/2023 [place] karimi: LIANG ALMANZA DO Diagnosis: COVID-19 4 po bid x 5 Last Documented On 03/19/2023 12:59PM By LIANG ALMANZA DO ; [facility] Medications Administered Includes: Administered Medications from this encounter No Administered Medications Recorded Results Includes: Results discussed during this encounter No Results Recorded For Specified Dates History of Present Illness Includes: History of Present Illness from this encounter No History of Present Illness Recorded Social History Description Last Updated Tobacco non-user 07/25/2022 Last Documented On 3 11:42AM ; [facility] Using marijuana 02/08/2021 Last Documented On 3 11:42AM ; [facility] Smoking Status Unknown Medical History Includes: Medical History addressed during this encounter Description Last Updated LMP: nexplanon 07/25/2022 Last Documented On 3 11:42AM ; [facility] Surgery 2001- KNEE SURGERY 11/23/2008 Last Documented On 3 11:42AM ; [facility] Family History Includes: Family History addressed during this encounter Description Last Updated Family history of asthma 09/13/2021 Last Documented On 3 11:42AM ; [facility] Family history of diabetes mellitus 09/04 Last Documented On 3 11:42AM ; [facility] Family history of systemic hypertension 09/13/2021 Last Documented On 3 11:42AM ; [facility] Family history reviewed - unchanged sinc e last visit 01/03/2019 Last Documented On 3 11:42AM ; [facility] Father HIGH BLOOD PRESSURE 11/23/2008 Last Documented On 3 11:42AM ; [facility] Review of Systems Includes: Review of Systems [...] Relationship Effect palmer Dates 1 - [employer] [id number] BRENDA GARCÍA Self 11/04/2020 - Unknown Clinical Notes Includes: Clinical Notes from this encounter * Progress note Date Encounter Last Documented by 04/13/2023 * PHONE CALL Last documented on 04/13/2023; 2:19 PM, LIANG ALMANZA DO; [facility] Active Problems & Conditions [...]
--- OUTSIDE RECORDS SUMMARY | 2024-06-28 19:08 | XMS_ITS | Clinical Summary ---
Author Organization [facility] Care Team Providers Care Telephone Collector Name Role Phone Unavailable Primary Care Provider Unavailabl e Social History Tobacco Use Types Packs/Day Years Used Date Smoking Tobacco: Never Assessed Comments Unknown Sex and Gender Information Value Date Recorded Sex Assigned at Not on file Legal Sex Female 2:57 PM [employer] Gender Identity Not on file Sexual Orientation [...]
--- OUTSIDE RECORDS SUMMARY | 2024-06-28 19:08 | XMS_ITS ---
Care Plan - [facility] Created on: June 28, 2024 BRENDA GARCÍA : 1990 Sex: Female Author Organization [facility] Address [address] [place] [address] Phone Care Team Providers Care Director Of Public Relations Name Role Phone LIANG ALMANZA DO Primary Care Provider [phone]
--- OUTSIDE RECORDS SUMMARY | 2024-06-28 19:08 | XMS_ITS | Clinical Summary ---
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 LIANG ALMANZA DO Active Last Documented On 2 10:05PM ; [facility] 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 05/05/2020 LIANG ALMANZA DO Active Last Documented On 0 1:48PM ; [facility] 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 11/28/2019 LIANG ALMANZA DO Active Last Documented On 0 12:42PM ; [facility] Plan of Treatment No Plan of [...] 11/02/2023 8:41AM By LIANG ALMANZA DO ; [facility] buPROPion HCl ER (XL) 300 MG Oral Tablet Extended Release 24 Hour 10/25/2023 Provider: LIANG ALMANZA DO Diagnosis: Anxiety disorder , unspecified 1 TABLET DAILY Last Documented On 10/25/2023 12:36PM By LIANG ALMANZA DO ; [facility] Methylphenidate HCl ER 20 MG Oral Tablet Extended Release 10/05/2023 Provider: LIANG BORJA DO Diagnosis: Attn-defct hyper activity disorder, predom inattentive type One tablet daily am Last Documented On 10/05/2023 8:25AM By LIANG ALMANZA DO ; [facility] Ondansetron 4 MG Oral Tablet Disintegrating 09/17/2023 Provider: LIANG ALMANZA DO Diagnosis: Nausea 1 every 4 - 6 hours as needed nausea Last Documented On 09/17/2023 6:46PM By LIANG ALMANZA DO ; [facility] ALPRAZolam 0.25 MG Oral Tablet 08/31/2023 Provider: TIFF SHELTON Diagnosis: Anxiety disorder , unspecified TAKE 1/4-1 TABLET BY MOUTH E VERY 8-12 HOURS NEEDED FOR ANXIETY. MUST LAST AT LEAST 30 DAYS Last Documented On 1:24PM [facility] buPROPion HCl ER (XL) 150 MG Oral Tablet Extended Release 24 Hour 07/11/2023 Provider: LIANG ALMANZA DO Diagnosis: Anxiety disorder , unspecified TAKE 1 TABLET BY MOUTH EVERY DAY IN THE MORNING Last Documented On 07/11/2023 9:37AM By LIANG ALMANZA DO ; [facility] Albuterol Sulfate HFA 108 (9 0 Base) MCG/ACT Inhalation Aerosol Solution 07/11/2023 Provider: LIANG MCFARLANE DO Diagnosis: COVID-19 INHALE 1-2 PUFFS INTO THE STACIA NGS EVERY 4-12 HRS NEEDED FOR WHEEZE Last Documented On 07/11/2023 9:37AM By LIANG ALMANZA DO ; [facility] Methylphenidate HCl 5 MG Ora l Tablet 04/11/2023 Provider: LIANG ALMANZA DO Diagnosis: Attn-defct hyper activity disorder, predom inattentive type 1 pm work days Last Documented On 04/11/2023 10:34AM By LIANG ALMANZA DO ; [facility] Triamcinolone Acetonide 0.1% External Cream 11/29/2022 Provider: TIFF DEALBC Diagnosis: Dermatitis, unsp ecified apply to affected area 2 omega es daily. do not use for longer than 14 days in a row. Last Documented On 3 10:38AM By [facility] ; [facility] Nexplanon 68 MG Subcutaneous Implant 01/06/2022 Prov ider: Diagnosis: Last Documented On 03/07/2022 2:42PM By Lilliana Munroe Harry ; [facility] Flonase 50 MCG/ACT Nasal Suspension 04/09/2020 Provi harris: Diagnosis: Last Documented On 04/09/2020 10:25AM By Concepción Albright Hrary ; [facility] ZyrTEC Allergy 10 MG Oral Tablet 04/09/2020 Provider : Diagnosis: Last Documented On 04/09/2020 10:25AM By Concepción GALINDO ; [facility] EpiPen 2-Cory 0.3MG/0.3ML Injection Solution Auto-injec tor 12/19/2017 Provider: Diagnosis: Given to her by the ER Last Documented On 12/19/2017 10:12AM By PETER PRABHAKAR Harry ; [facility] Medications [...] Check-Out Time Diagnosis [facility] 4 2:00PM 11:59PM Insurance Includes: Active Insurance Policies Plan Name Member ID Group # Subscriber Relationship Effect palmer Dates 1 - [employer] [id number] BRENDA GARCÍA Self 11/04/2020 - Unknown Clinical Notes Includes: Clinical Notes from this encounter No Clinical Notes Recorded
--- OUTSIDE RECORDS SUMMARY | 2024-06-28 19:08 | XMS_ITS | Clinical Summary ---
Author Organization [facility] Address [address] [place] [address] Phone Care Team Providers Care Ham Sawyer Name Role Phone LIANG GILLESPIE DO Primary Care Provider [phone] Reason for Visit and Chief Complaint The Chief Complaint is: Patient is here for a medication check Problems Includes: Problems addressed during this encounter and other active Problems Current Visit Onset Date Resolved Date Provider Jennifer story Status Anxiety Disorder Mixed 07/28/2022 LIANG HASSAN DO Active Last Documented On 3 8:10PM ; [facility] 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 05/05/2020 LIANG GILLESPIE DO Active Last Documented On 0 1:48PM ; [facility] Past Visits Onset Date Resolved Date Provider Condition Status Adhd, 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 LIANG GILLESPIE DO Active Last Documented On 2 10:05PM ; [facility] 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 11/28/2019 LIANG GILLESPIE DO Active Last Documented On 0 12:42PM ; [facility] Plan of Treatment - Continue current medication - Last Documented On 08/26/2023 7:44AM ; [facility] - Follow-up visit - Last Documented On 08/26/2023 7:44AM ; [facility] - Patient to call if problem develops - Last Documented On 08/26/2023 7:44AM ; [facility] PLAN [Use for s.o.a.p. note free text]. - Last Documented On 08/26/2023 7:44AM ; [facility] Continue present medications, call for refills. She was advised to follow a healthy diet. She was advised to drink plenty of water and stay hydrated. - Last Documented On 08/26/2023 7:44AM ; [facility] Assessments Includes: Assessments from this encounter Findings - Moderate recurrent major depression with anxiety [F41.9 - Anxiety disorder, unspecified] - Last Documented On 08/26/2023 7:44AM ; [facility] - Mixed anxiety disorder [F41.3 - Other mixed anxiety disorders] - Last Documented On 08/26/2023 7:44AM ; [facility] Medical Equipment - Implanted Devices Includes: Current Devices No Medical Equipment Recorded Medications Includes: Medications discussed during this encounter and other current Medications Current Medications (continue as prescribed) Escitalopram Oxalate 20 MG Oral Tablet 11/02/2023 Provider: LIANG GILLESPIE DO Diagnosis: Major depressive disorder, single episode, unspecified TAKE 1 TABLET BY MOUTH EVERY DAY Last Documented On 11/02/2023 8:41AM By LIANG GILLESPIE DO ; [facility] buPROPion HCl ER (XL) 300 MG Oral Tablet Extended Release 24 Hour 10/25/2023 Provider: LIANG GILLESPIE DO Diagnosis: Anxiety disorder , unspecified 1 TABLET DAILY Last Documented On 10/25/2023 12:36PM By LIANG GILLESPIE DO ; [facility] Methylphenidate HCl ER 20 MG Oral Tablet Extended Release 10/05/2023 Provider: LIANG BORJA DO Diagnosis: Attn-defct hyper activity disorder, predom inattentive type One tablet daily am Last Documented On 10/05/2023 8:25AM By LIANG GILLESPIE DO ; [facility] Ondansetron 4 MG Oral Tablet Disintegrating 09/17/2023 Provider: LIANG GILLESPIE DO Diagnosis: Nausea 1 every 4 - 6 hours as needed nausea Last Documented On 09/17/2023 6:46PM By LIANG GILLESPIE DO ; [facility] ALPRAZolam 0.25 MG Oral Tablet [...] 07/11/2023 9:37AM By LIANG GILLESPIE DO ; [facility] Albuterol Sulfate HFA 108 (9 0 Base) MCG/ACT Inhalation Aerosol Solution 07/11/2023 Provider: LIANG MCFARLANE DO Diagnosis: COVID-19 INHALE 1-2 PUFFS INTO THE STACIA NGS EVERY 4-12 HRS NEEDED FOR WHEEZE Last Documented On 07/11/2023 9:37AM By LIANG GILLESPIE DO ; [facility] Methylphenidate HCl 5 MG Ora l Tablet 04/11/2023 Provider: LIANG GILLESPIE DO Diagnosis: Attn-defct hyper activity disorder, predom inattentive type 1 pm work days Last Documented On 04/11/2023 10:34AM By LIANG GILLESPIE DO ; [facility] Triamcinolone Acetonide 0.1% External Cream 11/29/2022 Provider: TIFF TURNER [facility] Diagnosis: Dermatitis, unsp ecified apply to affected area 2 omega es daily. do not use for longer than 14 days in a row. Last Documented On 10:38AM By Tiff Turner [facility] ; [facility] Nexplanon 68 MG Subcutaneous Implant 01/06/2022 Prov ider: Diagnosis: Last Documented On 03/07/2022 2:42PM By Lilliana GALINDO ; [facility] Flonase 50 MCG/ACT Nasal Suspension 04/09/2020 Provi harris: Diagnosis: Last Documented On 04/09/2020 10:25AM By Concepción GALINDO ; [facility] ZyrTEC Allergy 10 MG Oral Tablet 04/09/2020 Provider : Diagnosis: Last Documented On 04/09/2020 10:25AM By Concepción GALINDO ; [facility] EpiPen 2-Cory 0.3MG/0.3ML Injection Solution Auto-injec tor 12/19/2017 Provider: Diagnosis: Given to her by the ER Last Documented On 12/19/2017 10:12AM By PETER GALINDO ; [facility] Past Medications on file Benzonatate 100 MG Oral Capsule 04/13/2023 - 3 Provider: LIANG GILLESPIE DO Diagnosis: COVID-19 as directed 1-2 q 6 hours prn cough Last Documented On 04/13/2023 2:28PM By LIANG GILLESPIE DO ; [facility] Lagevrio 200 MG Oral Capsule 03/19/2023 - 03/24/2023 P rovider: ILANG GILLESPIE DO Diagnosis: COVID-19 4 po bid x 5 Last Documented On 03/19/2023 12:59PM By LIANG GILLESPIE DO ; [facility] Medications Administered Includes: Administered Medications [...] Last Documented: On 08/24/2023 10:56A M ; [facility] Results Includes: Results discussed during this encounter [...] 08/24/2023 Last Documented On 4 7:44AM ; [facility] Not recovering from substance abuse 08/05 Last Documented On 4 7:44AM ; [facility] Tobacco non-user 07/25/2022 Last Documented On 4 10:53AM ; [facility] Using marijuana 02/08/2021 Last Documented On 4 10:53AM ; [facility] Smoking Status Unknown Procedures and Surgical History Includes: Procedures from this encounter Procedures Code Diagnosis Performing Provider Service L ocation Service Date dietary regime Last Documented On 4 11:08AM ; [facility] plan of care reviewed and agreed to Last Documented On 4 11:08AM ; [facility] plan of care reviewed and agreed to by t he patient Last Documented On 4 11:08AM ; [facility] use of tobacco assessment performed 1000F Last Documented On 4 10:54AM ; [facility] review of medications documented 1160F Last Documented On 4 10:54AM ; [facility] Pt encouraged to be compliant with curre nt treatment Last Documented On 4 11:08AM ; [facility] Discussed Exercise Last Documented On 4 11:08AM ; [facility] instructed to monitor salt intake Last Documented On 4 11:08AM ; [facility] Reviewed Blood Pressures Last Documented On 4 11:08AM ; [facility] Medical History Includes: Medical History addressed during this encounter Description Last Updated LMP: nexplanon 07/25/2022 Last Documented On 4 10:53AM ; [facility] Surgery 2000- KNEE SURGERY 11/23/2008 Last Documented On 4 10:53AM ; [facility] Family History Includes: Family History addressed during this encounter Description Last Updated Family history of asthma 09/13/2021 Last Documented On 4 10:53AM ; [facility] Family history of diabetes mellitus 09/04 Last Documented On 4 10:53AM ; [facility] Family history of systemic hypertension 09/13/2021 Last Documented On 4 10:53AM ; [facility] Family history reviewed - unchanged sinc e last visit 01/03/2019 Last Documented On 4 10:53AM ; [facility] Father HIGH BLOOD PRESSURE 11/23/2008 Last Documented On 4 10:53AM ; [facility] Review of Systems Includes: Review [...] Time Diagnosis CHECK UP LIANG GILLESPIE DO [facility] 08/24/19 24 10:39AM 11:08AM Anxiety Disorder Mixed,Major Depression Recurrent Moderate with Anxiety Insurance Includes: Active Insurance Policies Plan Name Member ID Group # Subscriber Relationship Effect palmer Dates 1 - [employer] [id number] BRENDA GARCÍA Self 11/04/2020 - Unknown Clinical Notes Includes: Clinical Notes from this encounter * Progress note Date Encounter Last Documented by 08/24/2023 CHECK UP Last documented on 08/26/2023; 7:44 AM, LIANG GILLESPIE DO; [facility] Active Problems & Conditions [...]
--- OUTSIDE RECORDS SUMMARY | 2024-06-28 19:08 | XMS_ITS | Clinical Summary ---
Author Organization [facility] [address] [place] [address] Address [address] [place] [address] Care Team Providers Care Rn [employer] Name Role Phone Ravindra Gillespie DO Primary Care Provider [phone] Allergies Active Allergy Reactions Criticality Noted Date [...] (12/24/2019): Added automatically from request for surgery [id number] Surgical History Surgery Date Site/Laterality Comments KNEE [...] on file Legal Sex Female 12:[address] [employer]OR Gender Identity Not on file Sexual Orientation [...] patient's age to complete this topic Insurance [employer] [facility] [employer] [facility] [id number] Care Teams Rn School Relationship Specialty Start Date End Date Ravindra Gillespie DO [address] [place] [id number] PCP - General Family Practice 03/15/20
--- OUTSIDE RECORDS SUMMARY | 2024-06-28 19:08 | XMS_ITS | Clinical Summary ---
Author Organization [facility] Address [address] [place] [address] Phone Care Team Providers Care Meter Reading Clerk Name Role Phone LIANG GILLESPIE DO Primary Care Provider [phone] Reason for Visit and Chief Complaint The Chief Complaint is: Patient is here for an ER f/u after having nonstop vomiting and fingding a cyst on her ovary Problems Includes: Problems addressed during this encounter and other active Problems Current Visit Onset Date Resolved Date Provider Conditio n Status Anxiety Disorder Mixed 07/28/2022 LIANG HASSAN DO Active Last Documented On 3 8:10PM ; [facility] Adhd, 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 LIANG GILLESPIE DO Active Last Documented On 2 10:05PM ; [facility] 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 05/05/2020 LIANG GILLESPIE DO Active Last Documented On 0 1:48PM ; [facility] Past Visits Onset Date Resolved Date Provider Condition Status 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 11/28/2019 LIANG GILLESPIE DO Active Last Documented On 0 12:42PM ; [facility] Plan of Treatment - Continue current medication - Last Documented On 07/21/2023 3:39PM ; [facility] - Follow-up visit - Last Documented On 07/21/2023 3:39PM ; [facility] - Patient to call if problem develops - Last Documented On 07/21/2023 3:39PM ; [facility] PLAN [Use for s.o.a.p. note free text]. - Last Documented On 07/21/2023 3:39PM ; [facility] Continue present medications, call for refills. Increased bupropion to 150 mg twice daily. She was advised to follow a healthy diet. She was advised to drink plenty of water and stay hydrated. get records anna - Last Documented On 07/21/2023 3:39PM ; [facility] Assessments Includes: Assessments from this encounter Findings - Other ovarian cyst [N83.299 - Other ovarian cyst, unspecified side] - Last Documented On 07/21/2023 3:39PM ; [facility] - ADHD, predominantly inattentive type [F90.0 - Attention-deficit hyperactivity disorder, predominantly inattentive type] - Last Documented On 07/21/2023 3:39PM ; [facility] - Moderate recurrent major depression with anxiety [F41.9 - Anxiety disorder, unspecified] - Last Documented On 07/21/2023 3:39PM ; [facility] - Mixed anxiety disorder [F41.3 - Other mixed anxiety disorders] - Last Documented On 07/21/2023 3:39PM ; [facility] Medical Equipment - Implanted Devices Includes: Current Devices No Medical Equipment Recorded Medications Includes: Medications discussed during this encounter and other current Medications Discontinued / Stopped on this date LIANG GILLESPIE DO on 03/27/2023 ALPRAZolam 0.25 MG Oral Tablet Provider: LIANG GILLESPIE DO Diagnosis: Anxiety disorder , unspecified Last Documented On 07/17/2023 5:48PM By LIANG GILLESPIE DO ; [facility] New / Renewed during this visit LIANG GILLESPIE DO on 07/17/2023 ALPRAZolam 0.25 MG Oral Tablet Provider: LIANG GILLESPIE DO 30 day supply: 8 tablet, 0 refills Diagnosis: Anxiety disorder, unspecified TAKE 1/4-1 TABLET BY MOUTH E VERY 8-12 HOURS NEEDED FOR ANXIETY. MUST LAST AT LEAST 30 DAYS Pharmacy: [address], [address] - Last Documented On 1:14PM By Tiff DEAL ; [facility] Current Medications (continue as prescribed) Escitalopram Oxalate 20 MG Oral Tablet 11/02/2023 Provider: LIANG GILLESPIE DO Diagnosis: Major depressive disorder, single episode, unspecified TAKE 1 TABLET BY MOUTH EVERY DAY Last Documented On 11/02/2023 8:41AM By LIANG GILLESPIE DO ; [facility] buPROPion HCl ER (XL) 300 MG Oral Tablet Extended Release 24 Hour 10/25/2023 Provider: LIANG GILLESPIE DO Diagnosis: Anxiety disorder , unspecified 1 TABLET DAILY Last Documented On 10/25/2023 12:36PM By LIANG GILLESPIE DO ; [facility] Methylphenidate HCl ER 20 MG Oral Tablet Extended Release 10/05/2023 Provider: LIANG BORJA DO Diagnosis: Attn-defct hyper activity disorder, predom inattentive type One tablet daily am Last Documented On 10/05/2023 8:25AM By LIANG GILLESPIE DO ; [facility] Ondansetron 4 MG Oral Tablet Disintegrating 09/17/2023 Provider: LIANG GILLESPIE DO Diagnosis: Nausea 1 every 4 - 6 hours as needed nausea Last Documented On 09/17/2023 6:46PM By LIANG GILLESPIE DO ; [facility] ALPRAZolam 0.25 MG Oral Tablet 08/31/2023 Provider: TIFF TURNER [facility] Diagnosis: Anxiety disorder , unspecified TAKE 1/4-1 TABLET BY MOUTH E VERY 8-12 HOURS NEEDED FOR ANXIETY. MUST LAST AT LEAST 30 DAYS Last Documented On 1:24PM By Tiff Turner [facility] ; [facility] buPROPion HCl ER (XL) 150 MG Oral Tablet Extended Release 24 Hour 07/11/2023 Provider: LIANG GILLESPIE DO Diagnosis: Anxiety disorder , unspecified TAKE 1 TABLET BY MOUTH EVERY DAY IN THE MORNING Last Documented On 07/11/2023 9:37AM By LIANG GILLESPIE DO ; [facility] Albuterol Sulfate HFA 108 (9 0 Base) MCG/ACT Inhalation Aerosol Solution 07/11/2023 Provider: LIANG MCFARLANE DO Diagnosis: COVID-19 INHALE 1-2 PUFFS INTO THE STACIA NGS EVERY 4-12 HRS NEEDED FOR WHEEZE Last Documented On 07/11/2023 9:37AM By LIANG GILLESPIE DO ; [facility] Methylphenidate HCl 5 MG Ora l Tablet 04/11/2023 Provider: LIANG GILLESPIE DO Diagnosis: Attn-defct hyper activity disorder, predom inattentive type 1 pm work days Last Documented On 04/11/2023 10:34AM By LIANG GILLESPIE DO ; [facility] Triamcinolone Acetonide 0.1% External Cream 11/29/2022 Provider: TIFF TURNER [facility] Diagnosis: Dermatitis, unsp ecified apply to affected area 2 omega es daily. do not use for longer than 14 days in a row. Last Documented On 10:38AM By Tiff Turner [facility] ; [facility] Nexplanon 68 MG Subcutaneous Implant 01/06/2022 Prov ider: Diagnosis: Last Documented On 03/07/2022 2:42PM By Lilliana Munroe Harry ; [facility] Flonase 50 MCG/ACT Nasal Suspension 04/09/2020 Provi harris: Diagnosis: Last Documented On 04/09/2020 10:25AM By Concepción Albright Harry ; [facility] ZyrTEC Allergy 10 MG Oral Tablet 04/09/2020 Provider : Diagnosis: Last Documented On 04/09/2020 10:25AM By Concepción GALINDO ; [facility] EpiPen 2-Cory 0.3MG/0.3ML Injection Solution Auto-injec tor 12/19/2017 Provider: Diagnosis: Given to her by the ER Last Documented On 12/19/2017 10:12AM By PETER GALINDO ; [facility] Past Medications on file Benzonatate 100 MG Oral Capsule 04/13/2023 - 3 Provider: LIANG GILLESPIE DO Diagnosis: COVID-19 as directed 1-2 q 6 hours prn cough Last Documented On 04/13/2023 2:28PM By LIANG GILLESPIE DO ; [facility] Lagevrio 200 MG Oral Capsule 03/19/2023 - 03/24/2023 P rovider: LIANG GILLESPIE DO Diagnosis: COVID-19 4 po bid x 5 Last Documented On 03/19/2023 12:59PM By LIANG GILLESPIE DO ; [facility] Medications Administered Includes: Administered Medications from this encounter No Administered Medications Recorded Vital Signs Includes: Vital Signs from this encounter Vital Name 07/17/2023 04:23P Blood Pressure Sitting R 122/82 Pulse Rate-Sitting (bpm) 72 Respiration Rate (breaths/min) 20 Height (in) 61.5 Weight (lb) 241.25 Body Mass Index 44.8 Body Surface Area 2.1 Oxygen Saturation (%) 97 Last Documented: On 07/17/2023 4:23PM ; [facility] Results Includes: Results discussed [...] 07/25/2022 Last Documented On 4 4:22PM ; [facility] Using marijuana 02/08/2021 Last Documented On 4 4:22PM ; [facility] Smoking Status Unknown Procedures and Surgical History Includes: Procedures from this encounter Procedures Code Diagnosis Performing Provider Service L ocation Service Date dietary regime Last Documented On 4 4:46PM ; [facility] plan of care reviewed and agreed to Last Documented On 4 4:46PM ; [facility] plan of care reviewed and agreed to by t he patient Last Documented On 4 4:46PM ; [facility] Pt encouraged to be compliant with curre nt treatment Last Documented On 4 4:46PM ; [facility] Discussed Exercise Last Documented On 4 4:46PM ; [facility] instructed to monitor salt intake Last Documented On 4 4:46PM ; [facility] Reviewed Blood Pressures Last Documented On 4 4:46PM ; [facility] Medical History Includes: Medical History addressed during this encounter Description Last Updated LMP: nexplanon 07/25/2022 Last Documented On 4 4:22PM ; [facility] Surgery 2001- KNEE SURGERY 11/23/2008 Last Documented On 4 4:22PM ; [facility] Family History Includes: Family History addressed during this encounter Description Last Updated Family history of asthma 09/13/2021 Last Documented On 4 4:22PM ; [facility] Family history of diabetes mellitus 09/04 Last Documented On 4 4:22PM ; [facility] Family history of systemic hypertension 09/13/2021 Last Documented On 4 4:22PM ; [facility] Family history reviewed - unchanged sinc e last visit 01/03/2019 Last Documented On 4 4:22PM ; [facility] Father HIGH BLOOD PRESSURE 11/23/2008 Last Documented On 4 4:22PM ; [facility] Review of Systems Includes: Review of Systems [...] Time Diagnosis CHECK UP LIANG GILLESPIE DO [facility] 07/17/19 24 4:21PM 4:57PM Major Depression Recurrent Moderate with Anxiety,Anxiety Disorder Mixed,Adhd, Predominantly Inattentive Type,Ovarian Cyst Other Insurance Includes: Active Insurance Policies Plan Name Member ID Group # Subscriber Relationship Effect palmer Dates 1 - [employer] [id number] BRENDA GARCÍA Self 11/04/2020 - Unknown Clinical Notes Includes: Clinical Notes from this encounter * Progress note Date Encounter Last Documented by 07/17/2023 CHECK UP Last documented on 07/21/2023; 3:39 PM, LIANG GILLESPIE DO; [facility] Active Problems & Conditions [...]
--- OUTSIDE RECORDS SUMMARY | 2024-06-28 19:08 | XMS_ITS ---
[...] Extended Release Oral Tablet - Co mpleted [id number] 200 ACTUAT albuter ol 0.09 MG/ACTUAT Metered [...] - Completed ondansetron 4 MG Oral Tablet [id number] 0:00:00Z - Completed [id number] 200 ACTUAT albuter ol 0.09 MG/ACTUAT Metered [...] MG Disintegrat ing Oral Tablet - Completed [id number] 200 ACTUAT albuter ol 0.09 MG/ACTUAT Metered Dose Inhaler - Completed Patient Care team information Name Category Status Period Participants - - Proposed period not known -
[2024-06-28] MEDS: SODIUM CHLORIDE 0.9% IV 1,000 ML 999 ML IV CONT (19:39)
[2024-06-28] MEDS: ONDANSETRON INJ 4 MG/2 ML VIAL IV PUSH (19:39)
[2024-06-28 19:45] LABS: Basophils Percent Auto 0.1 % (0.2-1.2); Hematocrit 39.4 % (37.0-47.0); Immature Granulocyte Absolute 0.02 K/mm3 (0.00-0.031); Immature Granulocyte Percent A 0.3 % (0-0.5); Lymphocytes Absolute Auto 0.48 K/mm3 (0.9-3.2); Lymphocytes Percent Auto 6.7 % (18.3-44.2); Mean Corpuscular Hemoglobin 27.8 pg (26-34); Mean Corpuscular Volume 84.2 fl (80-100); Mean Platelet Volume 9.7 fl (7.4-10.4); Monocytes Absolute Auto 0.4 K/mm3 (0.1-0.6); Monocytes Percent Auto 5.3 % (2.6-8.5); Neutrophils Absolute Auto 6.3 K/mm3 (1.3-6.7); Neutrophils Percent Auto 87.6 % (45.5-73.1); Platelet Count Result 247 k/mm3 (150-375); Red Blood Count 4.68 M/mm3 (4.2-5.4); Red Cell Distribution Width 12.9 % (11.5-14.5); White Blood Count 7.2 K/mm3 (4.5-10.0)
[2024-06-28 19:56] LABS: SPREG INTERNAL CONTROL Positive; Serum Qual hCG Negative
[2024-06-28 19:59] LABS: Alanine Aminotransferase 26 U/L (6-35); Albumin Level 4.6 g/dL (3.5-5.1); Alkaline Phosphatase 83 U/L (38-126); Anion Gap 14 mmol/L (4-12); Aspartate Amino Transferase 22 U/L (14-36); Bilirubin,Total 0.4 mg/dL (0.2-1.3); Blood Urea Nitrogen 11 mg/dL (7-17); Calcium 9.1 mg/dL (8.4-10.2); Carbon Dioxide 21 mmol/L (22-30); Chloride 107 mmol/L (98-107); Estimated CRCL calculation 99 ml/min; Estimated Glomerular Filt Rate > 60; Glucose 149 mg/dL (65-110); Lipase 44 U/L (23-300); Magnesium 1.9 mg/dL (1.6-2.3); Potassium 3.6 mmol/L (3.4-5.0); Sodium 142 mmol/L (137-145)
[2024-06-28 20:27] LABS: Influenza A QL RT-PCR Negative (Negative); Influenza B QL RT-PCR Negative (Negative); RSV RNA, RT-PCR Negative (Negative); SARS-CoV-2 RNA PCR Negative (Negative)
--- NOTE | 2024-06-28 20:58 | ED_ITS ---
HPI - General Adult General Chief complaint: Upper Respiratory Infection Stated complaint: N/V BODY ACHES,COUGH,CONGESTION Time Seen by Provider: 06/28/24 19:01 History of Present Illness HPI narrative: Patient is a 33-year-old female who presents to the emergency department this evening complaining of a flu-like symptoms which started approximately 2 days ago. Patient is complaining of a cough, nasal congestion, body aches, fevers and nausea/vomiting. Patient states that she has been taking zzxl-rsr-ushupyz medications including Motrin and Zofran and took her anxiety medication including her Xanax/Ativan but believes as though she vomited those up. Denies any chest pain, shortness of breath or abdominal pain, denies any dysuria or hematuria. No additional symptoms or concerns at this time Related Data Home Medications ?Medication ?Instructions ?Recorded ?Confirmed ?Last Taken ?Type albuterol sulfate 90 mcg/actuation 1 - 2 puff inhalation PRN PRN 06/16/23 06/16/23 Unknown History aerosol inhaler Wheezing bupropion HCl 150 mg 24 hr tablet, 150 mg PO DAILY 06/16/23 06/16/23 Unknown History extended release escitalopram oxalate 20 mg tablet 20 mg PO DAILY 06/16/23 06/16/23 Unknown History methylphenidate HCl 20 mg 20 mg PO DAILY 06/16/23 06/16/23 Unknown History tablet,extended release Allergies Allergy/AdvReac Type Severity Reaction Status Date / Time No Known Allergies Allergy Unknown Verified 06/28/24 17:21 Review of Systems 2 Review of Systems: All systems are reviewed and are negative unless stated otherwise in the HPI. [facility] Past Medical History Medical History Asthma Depression Surgical History Surgical History No pertinent past surgical history Social History Social History Smoking status: Never smoker Gender identity (if verbalized by the patient): Female Exam 2 Narrative: General: Alert, awake, afebrile, in no acute distress. HEENT: PERRL, no rhinorrhea, no post nasal drip, oropharynx clear, wearing purple eye mask. Neck: Trachea midline, no JVD, no lymphadenopathy. Cardiovascular: Regular rate and rhythm, no murmurs, rubs or gallops, no peripheral edema. Respiratory: Clear to auscultation bilaterally, no tachypnea, no wheezing, no rhonchi, no rubs, no respiratory distress. Abdomen: Soft, nontender, nondistended, no rebound, no guarding, no peritoneal signs. Musculoskeletal: No joint swelling or deformity, normal muscle tone. Skin: No rashes or petechia, no signs of infection. Psychiatric: Alert and oriented, normal behavior and judgment for situation. Neurological: Alert and oriented to person, place, and time. Follows all commands. No focal deficits, speech is clear and fluent. Course Vital Signs Vital signs: Vital Signs Temperature 99.1 F 06/28/24 17:23 Pulse Rate 61 06/28/24 17:23 Respiratory Rate 20 06/28/24 17:23 Blood Pressure 167/99 H 06/28/24 17:23 Pulse Oximetry 99 06/28/24 17:23 Oxygen Delivery Room Air 06/28/24 17:23 Temperature 99.1 F 06/28/24 17:23 Pulse Rate 61 06/28/24 17:23 Respiratory Rate 20 06/28/24 17:23 Blood Pressure 167/99 H 06/28/24 17:23 Pulse Oximetry 99 06/28/24 17:23 Oxygen Delivery Room Air 06/28/24 17:23 Medical Decision Making MDM Narrative Medical decision making narrative: The patient was evaluated by myself in the emergency department. History is obtained from patient who is an independent historian and physical exam was performed. External medical records were reviewed at this time. IV was established and pertinent tests were ordered. Patient was administered 4 mg of IV Zofran and 1 L IV fluid bolus with normal saline. Patient was administered a DuoNeb breathing treatment as well per her request. On repeat assessment, patient states that she still feels nauseous at this time she was administered 10 mg of IV Reglan and 25 mg of IV Benadryl. She is complaining of body aches and 50 mg of IV Toradol was administered as well. Laboratory results obtained revealing no acute process. Viral swabs were obtained and noted to be negative for COVID/influenza/RSV. Imaging studies obtained included CXR which was independently interpreted by me revealing no acute cardiopulmonary process, which is pending final radiology interpretation. Differential diagnosis considerations include acute viral syndrome including COVID/influenza/RSV, dehydration, electrolyte derangements, infectious process such as pneumonia. Comorbidities impacting this visit include none. I have evaluated and discussed social determinants of health with the patient that could potentially impact subsequent diagnosis and treatment plans. On repeat assessment of the patient, reevaluation revealed that the patient is doing well and is in no acute distress. Patient symptoms have improved since she arrived to our emergency department. Repeat vital signs were all reviewed and noted to be stable. Differential diagnosis and treatment plan were discussed with the patient at bedside. Patient agrees with discussion and after shared medical decision making agrees with discharge. All questions were answered to the patient's satisfaction. Patient will follow up with her PCP in 3-5 days. Script for Zofran was sent to patient's pharmacy to use as needed for nausea/vomiting. Patient was provided with strict return precautions and instructed to return to the emergency department if any new or worsening symptoms develop. The patient was discharged in stable condition. Vital Signs Vital Signs: Vital Signs Temperature 99.1 F 06/28/24 17:23 Pulse Rate 61 06/28/24 17:23 Respiratory Rate 20 06/28/24 17:23 Blood Pressure 167/99 H 06/28/24 17:23 Pulse Oximetry 99 06/28/24 17:23 Oxygen Delivery Room Air 06/28/24 17:23 Temperature 99.1 F 06/28/24 17:23 Pulse Rate 61 06/28/24 17:23 Respiratory Rate 20 06/28/24 17:23 Blood Pressure 167/99 H 06/28/24 17:23 Pulse Oximetry 99 06/28/24 17:23 Oxygen Delivery Room Air 06/28/24 17:23 Lab Data 06/28/24 19:28 06/28/24 19:28 Labs: Lab Results 06/28/24 06/28/24 Range/Units 19:28 19:46 WBC 7.2 (4.5-10.0) K/mm3 RBC 4.68 (4.2-5.4) M/mm3 Hgb 13.0 (12.0-15.0) g/dL Hct 39.4 (37.0-47.0) % MCV 84.2 (80-100) fl MCH 27.8 (26-34) pg MCHC 33.0 (32-36) g/dl RDW 12.9 (11.5-14.5) % Plt Count 247 (150-375) k/mm3 MPV 9.7 (7.4-10.4) fl Immature Gran % (Auto) 0.3 (0-0.5) % Neut % (Auto) 87.6 H (45.5-73.1) % Lymph % (Auto) 6.7 L (18.3-44.2) % [place] % (Auto) 5.3 (2.6-8.5) % Eos % (Auto) 0.0 (0-4.4) % Baso % (Auto) 0.1 L (0.2-1.2) % Lymph # (Auto) 0.48 L (0.9-3.2) K/mm3 [place] # (Auto) 0.4 (0.1-0.6) K/mm3 Eos # (Auto) 0.0 (0-0.3) K/mm3 Baso # (Auto) 0.0 (0.0-0.1) K/mm3 Abs Immat Gran (auto) 0.02 (0.00-0.031) K/mm3 Absolute Neuts (auto) 6.3 (1.3-6.7) K/mm3 Absolute Nucleated RBC 0.000 (0.0-0.012) K/mm3 Nucleated RBC % 0.0 (0.0-0.2) % Sodium 142 (137-145) mmol/L Potassium 3.6 (3.4-5.0) mmol/L Chloride 107 (98-107) mmol/L Carbon Dioxide 21 L (22-30) mmol/L Anion Gap 14 H (4-12) mmol/L BUN 11 (7-17) mg/dL Creatinine 0.78 (0.7-1.0) mg/dL Estim Creat Clear Calc 99 ml/min Estimated GFR > 60 (59 - ) Glucose 149 H (65-110) mg/dL Calcium 9.1 (8.4-10.2) mg/dL Magnesium 1.9 (1.6-2.3) mg/dL Total Bilirubin 0.4 (0.2-1.3) mg/dL AST 22 (14-36) U/L ALT 26 (6-35) U/L Alkaline Phosphatase 83 (38-126) U/L Total Protein 8.0 (6.3-8.2) g/dL Albumin 4.6 (3.5-5.1) g/dL Lipase 44 (23-300) U/L Serum HCG, Qual Negative Influenza A (RT-PCR) Negative (Negative) Influenza B (RT-PCR) Negative (Negative) RSV (RT-PCR) Negative (Negative) SARS-CoV-2 RNA (RT-PCR) Negative (Negative) Discharge Plan Discharge Clinical Impression: Acute viral syndrome, Upper respiratory infection Patient Disposition: Home, Self-Care Condition: Improved Instructions: Antibiotic Form, Viral Syndrome (ED) Additional Instructions: Please follow-up with your family doctor within the next 3-5 days. Return to the emergency department if any new or worsening symptoms develop. Use prescribe Zofran as needed for nausea/vomiting. Patient Language: Luxembourger Prescriptions: New ondansetron 4 mg tablet,disintegrating 4 mg PO Q8H PRN (Reason: nausea and vomiting) Qty: 10 0RF No Action methylphenidate HCl 20 mg tablet extended release 20 mg PO DAILY albuterol sulfate 90 mcg/actuation HFA aerosol inhaler 1 - 2 puff INHALATION PRN PRN (Reason: Wheezing) escitalopram oxalate 20 mg tablet 20 mg PO DAILY bupropion HCl 150 mg tablet extended release 24 hr 150 mg PO DAILY promethazine 25 mg tablet 25 mg PO TID PRN (Reason: nausea and vomiting) 3 Days Qty: 10 0RF ondansetron 4 mg tablet,disintegrating 4 mg PO Q8H PRN (Reason: nausea and vomiting) Qty: 10 0RF Follow-up/Referrals: PHYSICIAN NOT ON STAFF,NONSTAFF [Primary Care Provider] - 3 Days Karl Bernard MD [Physician] - 3 Days Time of Disposition: 21:03
[2024-06-28] MEDS: METOCLOPRAMIDE HCL INJ 10 MG/2 ML VIAL IV PUSH (21:11)
[2024-06-28] MEDS: diphenhydrAMINE HCl INJ 50 MG/ML VIAL 25 MG IV PUSH (21:11)
[2024-06-28] MEDS: KETOROLAC 15 MG/ML VIAL (*BKC) IV PUSH (21:11)
[2024-06-28 21:29] VITALS: PULSE 65; RESP 20
[2024-06-28] MEDS: IPRATROPIUM 0.5 MG/ALBUTEROL SULFATE 2.5 MG AMPUL.NEB 3 ML INHALATION (21:31)
[2024-06-28 21:37] VITALS: PULSE 67; RESP 20
== END 2024-06-28 22:27 | disposition home or self-care (01) ==
PROVIDERS: Emergency Provider Emergency Medicine
DX: B34.9 Viral infection, unspecified (principal); J06.9 Acute upper respiratory infection, unspecified; J45.909 Unspecified asthma, uncomplicated; F32.A Depression, unspecified; Z20.822 Contact with and (suspected) exposure to COVID-19; Z79.899 Other long term (current) drug therapy
CPT/HCPCS: 36415; 71045; 80053; 83690; 83735; 84703; 85025; 87637; 94640; 96361; 96374; 96375; 99284; J1200; J1885; J2405; J2765; J7030

== ENCOUNTER 2024-09-21 17:22 | Emergency (ER) | payer OTHER, SELFPAY ==
[2024-09-21 17:25] VITALS: BP 132/77; PULSE 78; RESP 16; TEMP 36.8; O2SAT 99
--- OUTSIDE RECORDS SUMMARY | 2024-09-21 17:25 | XMS_ITS | Referral Summary ---
Author Organization [facility] [address] Address [address] [place] [address] Care Team Providers Care Scientific Aide Name Role Phone Ravindra Gillespie DO Primary Care Provider [phone] Allergies Active Allergy Reactions Criticality Noted Date [...] (12/24/2019): Added automatically from request for surgery [id number] Social History Tobacco Use Types Packs/Day Years Used Date Smoking Tobacco: Never Cigarettes Smokeless Tobacco: Never Tobacco Cessation:Counseling Given: Not Answered Alcohol Use Standard Drinks/Week Comments Yes 0 (1 standard drink = 0.6 oz pur e alcohol) Rarely Comments No Sex and Gender Information Value Date Recorded Sex Assigned at Not on file 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
--- OUTSIDE RECORDS SUMMARY | 2024-09-21 17:25 | XMS_ITS | Clinical Summary ---
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
--- OUTSIDE RECORDS SUMMARY | 2024-09-21 17:25 | XMS_ITS | Continuity of Care Document ---
Author Organization [facility]. If a dditional information is needed, contact Health Information Management at [phone] Address [address] [place] [phone] Phone Care Team Providers Care Sap Mobility Architect Name Role Phone Unavailable Unavailable Unavailable Unavailable Unavailable Unavailable Unavailable Unavailable Unavailable Unavailable Unavailable Unavailable Unavailable Unavailable Unavailable Unavailable Unavailable Unavailable Problems Vomiting Onset:28-Sep-2023 Katy Francisco NP Allergies and Adverse Reactions No Known Drug Allergies(Wilber rgy) Onset: 28-Sep-2023 Medications ondansetron 2 MG/ML Injectable Solution [Zofran];4 MILLIGRAM X1ED Quantity:1 Zully Solis DO Start:32-Zqq-1634Nif:28-Sep-2023 Comments:[id number] sodium chloride 9 MG/ML Injectable Solution;[id number] Rileyambrocio Solis DO Start:54-Hbn-5649Wvs:28-Sep-2023 Comments:[id number] haloperidol 5 MG/ML Injectable Solution;2 MILLIGRAM X1ED Quantity:1 Zully Solis DO Start:79-Fbf-5069Wwg:28-Sep-2023 Comments:[id number] Administration Instructions: Max INITIAL IV dose: 5 mg ED/ICU2 mg all other areas Max MAINTENANCE IV dose: 20 mg ED/ICU5 mg all other areas ondansetron 4 MG Disintegrating Oral Tablet;4 MILLIGRAM PO Q8HR Start:28-Sep-2023 Comments:4 MG PO Q8HR WELLBUTRIN XL;300 MILLIGRAM PO DAILY Start:28-Sep-2023 Comments:300 MG PO DAILY escitalopram 20 MG Oral Tablet;20 MILLIGRAM PO DAILY Start:28-Sep-2023 Comments:20 MG PO DAILY 8 HR methylphenidate hydrochloride 20 MG Extended Release Oral Tablet;20 MILLIGRAM PO DAILY Start:28-Sep-2023 Comments:20 MG PO DAILY ALPRAZolam 0.25 MG Oral Tablet;0.125 MILLIGRAM PO BEDTIME Start:28-Sep-2023 Comments:0.125 MG PO BEDTIME [id number] 200 ACTUAT albuterol 0.09 MG/ACTUAT Metered Dose Inhaler [Proventil];2 PUFF INH Q4H PRN Start:28-Sep-2023 Comments:2 PUFF INH Q4H PRN As Needed for WHEEZING Social History Smoking Status Tobacco smoking consumption unknown Recorded: Results CBC W/AUTO DIFFERENTIAL Ordered On:28-Sep-2023 09:23 BASOPHIL #0.110*3/uL(Normal) R danielito:010*3/uL-0.210*3/uL BASOPHIL %0.4%(Normal) Range:0%- 1.1% EOSINOPHIL #0.010*3/uL(Normal) R danielito:010*3/uL-0.710*3/uL EOSINOPHIL %0.0%(Normal) Range:0 %-5.5% GRANULOCYTE #11.910*3/uL(High) R danielito:1.410*3/uL-6.510*3/uL GRANULOCYTE %93.7%(High) Range:4 0%-74.8% SLJGQLPQHO20.7%(Low) Range:34.9% -44.1% IKUZVWFZZZ69.9g/dL(Normal) Range :11.6g/dL-15.4g/dL LYMPHOCYTE #0.510*3/uL(Low) Rang e:1.210*3/uL-3.410*3/uL LYMPHOCYTE %3.9%(Low) Range:17%- 48.8% MEAN CELL HGB29.0pg(Normal) Rang e:26.9pg-33.7pg MEAN CELL HGB YTWEFFTGCZZLD32.3g/dL(Normal) Range:33.3g/dL-35.3g/dL MEAN CELL LMFLAL82.4fL(Normal) R danielito:79.2fL-97.2fL MONOCYTE #0.310*3/uL(Normal) Ran ge:0.110*3/uL-0.610*3/uL MONOCYTE %2.0%(Low) Range:4.6%-1 1.8% PLATELET AAVVZ54509*3/uL(Normal) Range:40911*3/uL-95426*3/uL RED BLOOD CELL4.12{M/mm3}(Normal) Range:3.78{M/mm3}-5.1{M/mm3} RED CELL DISTRIBUTIO N WIDTH13.5%(Normal) Range:11.2%-14.4% WHITE BLOOD CELL12.710*3/uL(High) Range:3.710*3/uL-10.110*3/uL COMPREHENSIVE METABOLIC PANEL Ordered On:28-Sep-2023 09:34 ALBUMIN/GLOBULIN RATIO1.4(Normal) Range:0.7-1.5 ALBUMIN4.6g/dL(Normal) Range:3.5 g/dL-5g/dL ALKALINE PHOSPHATASE JSSDJ30B/L(Normal) Range:38U/L-126U/L SGPT/ALT31U(Normal) Range:13U-69 U SGOT/AST28U/L(Normal) Range:15U/ L-46U/L TOTAL BILIRUBIN0.9mg/dL(Normal) Range:0.1mg/dL-1.1mg/dL BUN/CREATININE RATIO12(Normal) R danielito:10-20 BLOOD UREA MZQGSXYV8yx/dL(Normal) Range:7mg/dL-20mg/dL CALCIUM9.6mg/dL(Normal) Range:8. 4mg/dL-10.2mg/dL CORRECTED CALCIUM9.1mg/dL Commen ts:Calcium Corrected for Albumin. QRPCWZLJ684pure/L(Normal) Range: 96mmol/L-107mmol/L CARBON SXWJRTF85jmbi/L(Low) Rang e:22mmol/L-32mmol/L CREATININE0.73mg/dL(Normal) Rang e:0.7mg/dL-1.5mg/dL ANION GAP10.0meq/L(Normal) Range :3meq/L-11meq/L GFR RACE SKWTCFLRAJS549 Range:>= 60 Comments:The eGFR is calculated using the 202 CKD-EPI Cr equation,which includes serum Cr, age, and sex but does not include arace coefficient. The National Kidney Foundation recommendsthis formula for calculation eGFR in adults. GFR will notcalculate if sex is unknown or patient age is <18 years.Ref range: >/=60 mL/min/1.73 m2 GLOBULIN3.2g/dL(Normal) Range:2. 5g/dL-4.5g/dL DJIYCNG378fd/dL(High) Range:74mg /dL-106mg/dL POTASSIUM3.8{MMOL}(Normal) Range :3.5{MMOL}-5.1{MMOL} LUXGMY989nxfn/L(Normal) Range:13 7mmol/L-145mmol/L CORRECTED HNANZL246ubgk/L(Normal) Range:135mmol/L-146mmol/L TOTAL PROTEIN7.7g/dL(Normal) Ran ge:6.3g/dL-8.2g/dL LIPASE Ordered On:28-Sep-2023 09:34 BYKCFX40P/L(Normal) Range:23U/ L-300U/L MAGNESIUM Ordered On:28-Sep-2023 09:34 MAGNESIUM1.76mg/dL(Normal) Ran ge:1.6mg/dL-2.3mg/dL URINALYSIS DIPSTICK Ordered On:28-Sep-2023 09:29 UA APPEARANCEHAZY Range:CLEAR UA BILIRUBIN DIPSTICKNegative Ra nge:NEGATIVE UA BLOOD QLJLLICZ387/ul(Abnormal) Range:NEGATIVE UA COLORYELLOW Range:YELLOW UA GLUCOSE DIPSTICK1 00 (1+)(Abnormal) Range:NORMAL UA LEUKOCYTE ESTERAS E DIPSTICKneg Range:NEGATIVE UA NITRITE DIPSTICKNEG Range:NEG ATIVE UA PH DIPSTICK6.0(Normal) Range: 5-8.5 UA PROTEIN DIPSTICK3 0 (1+)(Abnormal) Range:NEGATIVE UA SPECIFIC GRAVITY1.020(Normal) Range:1.001-1.035 UA KETONE OXVAEHTU318 (4+) Range :NEGATIVE UA UROBILINOGEN DIPSTICKnorm Ran ge:NORM-1mg/dL UA MICROSCOPIC * Ordered On:28-Sep-2023 09:29 UA NZZ04-46(Abnormal) Range:0- 0 UA WBC6-10/[HPF](Abnormal) Range :0/[HPF]-1/[HPF] UA BACTERIAFEW/[HPF](Abnormal) R danielito:NEGATIVE /HPF UA EPITHELIAL CELLSMANY Range:NE GATIVE UA MUCUSFEW/[LPF](Abnormal) Rang e:NEGATIVE /LPF HCG URINE QUALITATIVE. Ordered On:28-Sep-2023 09:24 HCG URINE QUALITATIVE.NEGATIVE Range:NEGATIVE 1 Ordered On:28-Sep-2023 Comments: Indication for Culture: Sx,w/abn UA 1st24h&WBC>10 29-Sep-2023 11:32 URINE CULTURE Vital Signs 28-Sep-2023 08:37 TEMP APJTHBZ18.7c Comments:36.7 Pulse79 Comments:79 Respiratory Rate16 Comments:16 O2 SAT98% Comments:98 BP Mwnufbhw929yn[Hg] Comments:14 6 BP Ojwrrghqc39ks[Hg] Comments:78 Height5.2235962[ft_us] Comments: 5 Kmwbqq913bo Comments:110.000 28-Sep-2023 08:37 BMI44.3kg/m2 Comments:44.3 Encounters Emergency Encounter Reason:PUI-VOMITING Encounter Diagnosis:Cannabis use, unspecified, uncomplicated,Nausea with vomiting, unspecified 28-Sep-2023 08:01Nf55-Oxw-2022 11:30 [facility] Discharge Disposition:Discharged to home or self care (routine discharge) Katy Francisco NP-28-Sep-2023 [facility] ([facility])EMERGENCY PROVIDER REPORTREPORT#:[id number] REPORT STATUS: SignedDATE:09/28/23 TIME: 0848PATIENT: BRENDA GARCÍA UNIT #: [id number]#: [id number] ROOM/BED: XEDAGE: 33 SEX: F PCP PHYS: [...] MedicationsONDANSETRON ODT (ZOFRAN ODT) 4 MG PO A7MPDIHZKCfgzo (XANAX) 0.125 MG PO BEDTIMEMETHYLPHENIDATE ER (METADATE [...] (Auto) (17.0 - 48.8 %) 3.9 L [place] % (Auto) (4.6 - 11.8 %) 2.0 L Eos % (Auto) (0.0 - 5.5 %) 0.0 Baso % (Auto) (0.0 - 1.1 %) 0.4 Neut # (Auto) (1.4 - 6.5 K/mm3) 11.9 H Lymph # (Auto) (1.2 - 3.4 k/mm3) 0.5 L [place] # (Auto) (0.1 - 0.6 K/mm3) 0.3 Eos # (Auto) (0.0 - 0.7 K/mm3) 0.0 Baso # (Auto) (0.0 - 0.2 K/mm3) 0.1 Urines Urine Color (YELLOW) YELLOW Urine Appearance (CLEAR) HAZY Urine pH (5.0 - 8.5) 6.0 Ur Specific [place] (1.001 - 1.035) 1.020 Urine Protein (NEGATIVE) [...] for corynebacterium coyleae - commonly acontaminate per laboratory tester, and sensitivies not performed due to this. [...] Alley Riley DOPatient AddendumAddendum at 1701RPT #: [id number] OF REPORT Plan of Treatment Please return [...]
--- OUTSIDE RECORDS SUMMARY | 2024-09-21 17:25 | XMS_ITS | Clinical Summary ---
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
--- OUTSIDE RECORDS SUMMARY | 2024-09-21 17:25 | XMS_ITS ---
[...] Extended Release Oral Tablet - Co mpleted [id number] 200 ACTUAT albuter ol 0.09 MG/ACTUAT Metered [...] - Completed ondansetron 4 MG Oral Tablet [id number] 0:00:00Z - Completed [id number] 200 ACTUAT albuter ol 0.09 MG/ACTUAT Metered [...] MG Disintegrat ing Oral Tablet - Completed [id number] 200 ACTUAT albuter ol 0.09 MG/ACTUAT Metered Dose Inhaler - Completed Patient Care team information Name Category Status Period Participants - - Proposed period not known -
--- NOTE | 2024-09-21 18:40 | ED.NAVMDI ---
HPI - Nausea/Vomiting/Diarrhea General Chief complaint: Nausea/Vomiting/Diarrhea Stated complaint: CYCLIC VOMITING X12 HOURS Focused HPI: 33-year-old female with reported history of cyclical vomiting presents to emergency department for cyclical vomiting. Patient states she began vomiting at 5:00 a.m. this morning and has vomited several times since. She states she tried ODT Zofran, tierney christo and hydroxyzine at home without improvement. She is concerned she is becoming dehydrated. She denies focal abdominal pain, chest pain or shortness of breath, fever. States she has had cyclical vomiting since she was 3 years old due to unknown cause. GENERAL: Well-appearing, well-nourished, and in no acute distress. HEAD: Normocephalic, atraumatic. CHEST: Clear to auscultation. No respiratory distress. ABD: Normoactive bowel sounds. Abdomen soft, nontender, nondistended. No rebound or rigidity. HEART: Regular rate and rhythm. NEURO: Alert and oriented x3. Patient screened in triage and initial orders placed. Additional care and disposition to be based upon diagnostic testing and treatment. Related Data Home Medications Medication Instructions Recorded Confirmed Last Taken Type albuterol sulfate 90 mcg/actuation 1 - 2 puff inhalation PRN PRN 06/16/23 06/16/23 Unknown History aerosol inhaler Wheezing bupropion HCl 150 mg 24 hr tablet, 150 mg PO DAILY 06/16/23 06/16/23 Unknown History extended release escitalopram oxalate 20 mg tablet 20 mg PO DAILY 06/16/23 06/16/23 Unknown History methylphenidate HCl 20 mg 20 mg PO DAILY 06/16/23 06/16/23 Unknown History tablet,extended release Allergies Allergy/AdvReac Type Severity Reaction Status Date / Time No Known Allergies Allergy Unknown Verified 09/21/24 17:23 [facility] Past Medical History Medical History Asthma Depression Surgical History Surgical History No pertinent past surgical history Social History Social History Smoking status: Never smoker Gender identity (if verbalized by the patient): Female Course Vital Signs Vital signs: Vital Signs Temperature 98.3 F 09/21/24 17:25 Pulse Rate 78 09/21/24 17:25 Respiratory Rate 16 09/21/24 17:25 Blood Pressure 132/77 09/21/24 17:25 Pulse Oximetry 99 09/21/24 17:25 Oxygen Delivery Room Air 09/21/24 17:25 Temperature 98.3 F 09/21/24 17:25 Pulse Rate 78 09/21/24 17:25 Respiratory Rate 16 09/21/24 17:25 Blood Pressure 132/77 09/21/24 17:25 Pulse Oximetry 99 09/21/24 17:25 Oxygen Delivery Room Air 09/21/24 17:25 Discharge Plan Discharge Clinical Impression: Nausea & vomiting Qualifiers: Vomiting type: unspecified Qualified Code(s): R11.2 - Nausea with vomiting, unspecified Patient Disposition: Elopement After Seen by Prov Patient Language: Occitan Prescriptions: No Action methylphenidate HCl 20 mg tablet extended release 20 mg PO DAILY albuterol sulfate 90 mcg/actuation HFA aerosol inhaler 1 - 2 puff INHALATION PRN PRN (Reason: Wheezing) escitalopram oxalate 20 mg tablet 20 mg PO DAILY bupropion HCl 150 mg tablet extended release 24 hr 150 mg PO DAILY promethazine 25 mg tablet 25 mg PO TID PRN (Reason: nausea and vomiting) 3 Days Qty: 10 0RF ondansetron 4 mg tablet,disintegrating 4 mg PO Q8H PRN (Reason: nausea and vomiting) Qty: 10 0RF ondansetron 4 mg tablet,disintegrating 4 mg PO Q8H PRN (Reason: nausea and vomiting) Qty: 10 0RF Follow-up/Referrals: PHYSICIAN NOT ON STAFF,NONSTAFF [Primary Care Provider] -
--- NOTE | 2024-09-21 19:53 | PC.NURSE ---
called for blood and iv no answer
--- NOTE | 2024-09-21 19:57 | PC.NURSE ---
2nd call, no answer.
--- OUTSIDE RECORDS SUMMARY | 2024-09-21 20:40 | XMS_ITS | Encounter Summary ---
Author Organization [facility] Address [address] [place] [address] Care Team Providers Care Trimmer And Reinforcer Name Role Phone Ravindra Gillespie DO Primary Care Provider + [phone] Reason for Visit * Reason Comments Abdominal Pain Encounter Details Date Type Department Care Team (Late st Contact Info) Description 09/21/2024 8:21 PM CDT Emergency [address] [id number] Social History Tobacco Use Types Packs/Day Years Used Date Smoking Tobacco: Never Cigarettes Smokeless Tobacco: Never Alcohol Use Standard Drinks/Week Comments Yes 0 (1 standard drink = 0.6 oz pur e alcohol) Rarely Personal Safety Answer Date Recorded Have you ever been in or are you currently in a harmful physical or emotional relationship or is someone making you feel afraid or unsafe? 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 Pt has had constant abd pain x4 hours. Pt states it is a cramping pain and rates it 8/10. Pt has had n/v as well and noticed a trace amount of blood in her vomit.Pt denies any urinary symptoms at this time documented in this encounter Plan of Treatment Pending Results Name Type Priority Associated Diagnoses Date /Time CBC with auto differential Lab STAT 09/21/2024 8:38 PM CDT Comprehensive metabolic panel Lab STAT 09/21/2024 8:38 PM CDT Lipase Lab STAT 09/21/2024 8:3 8 PM CDT Scheduled Orders Name Type Priority Associated Diagnoses Order Schedule CBC with auto differential Lab STAT STAT for 1 Occurrences starting 09/21/2024 until 09/21/2024 Comprehensive metabolic panel Lab STAT STAT for 1 Occurrences starting 09/21/2024 until 09/21/2024 Lipase Lab STAT STAT for 1 Occurrences starting 09/21/2024 until 09/21/2024 Urinalysis reflex to microscopic and culture Urine Microbiology STAT STAT for 1 Occurrences starting 09/21/2024 until 09/21/2024 POCT hCG, urine Point of Care Testing Routine STAT for 1 Occurrences starting 09/21/2024 until 09/21/2024 documented as of this encounter Visit Diagnoses Not on filedocumented in this encounter Orders Medications Ordered That Jhonny ht Not Have Been Administered Count Last Ordered Date First Ordered Date ondansetron (ZOFRAN) injection 4 mg 1 09/21 Nursing Count Last Ordered Date First Orde red Date MISCELLANEOUS NURSING CARE ORDER (SPECIFY) 1 09/21/2024 IV Count Last Ordered Date First Orde red Date SALINE LOCK IV 1 09/21/2024 documented in this encounter Care Teams Trimmer And Reinforcer Relationship Specialty Start Date End Date Ravindra Gillespie DO [address] [place] [id number] PCP - General Family Practice 03/15/20 documented as of this encounter
--- OUTSIDE RECORDS SUMMARY | 2024-09-21 20:40 | XMS_ITS | Referral Summary ---
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
--- OUTSIDE RECORDS SUMMARY | 2024-09-21 20:40 | XMS_ITS | Clinical Summary ---
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 Gender Identity Not on file Sexual Orientation [...] Regular Well Visit/Exam 18-64 2006 Covid-19 Vaccine (4 - 2023-2 5 season) 2024 03/08/2022, 05/02/2021, 07/09/2020 Influenza Vaccine (Season Ended) 2025 03/07/2022 HPV Vaccines Aged Out No longer eligi ble based on patient's age to complete this topic Pneumococcal vaccine <65 Aged Out No longer eligible based on patient's age to complete this topic Insurance [facility] [id number] Care Teams Watermelon Inspector Relationship Specialty Start Date End Date Ravindra Gillespie DO [address] [place] [id number] PCP - General Family Practice 03/15/20
--- OUTSIDE RECORDS SUMMARY | 2024-09-21 20:40 | XMS_ITS ---
[...] Extended Release Oral Tablet - Co mpleted [id number] 200 ACTUAT albuter ol 0.09 MG/ACTUAT Metered [...] - Completed ondansetron 4 MG Oral Tablet [id number] 0:00:00Z - Completed [id number] 200 ACTUAT albuter ol 0.09 MG/ACTUAT Metered [...] MG Disintegrat ing Oral Tablet - Completed [id number] 200 ACTUAT albuter ol 0.09 MG/ACTUAT Metered Dose Inhaler - Completed Patient Care team information Name Category Status Period Participants - - Proposed period not known -
--- OUTSIDE RECORDS SUMMARY | 2024-09-21 20:40 | XMS_ITS | Clinical Summary ---
Author Organization [facility] Care Team Providers Care Assembler Name Role Phone Unavailable Primary Care Provider Unavailabl e Social History Tobacco Use Types Packs/Day Years Used Date Smoking Tobacco: Never Assessed Comments Unknown Sex and Gender Information Value Date Recorded Sex Assigned at Not on file Legal Sex Female 2:57 PM IMAGING NURSE Gender Identity Not on file Sexual Orientation [...]
== END 2024-09-21 20:52 | disposition left against medical advice (07) ==
LOC: ANHED 20:38
PROVIDERS: Emergency Provider Physician Assistant
DX: R11.2 Nausea with vomiting, unspecified (principal); J45.909 Unspecified asthma, uncomplicated; F32.A Depression, unspecified
CPT/HCPCS: 99281